=== PATIENT | female | born 1980 | race Caucasian/White ===

== ENCOUNTER 2024-09-13 15:51 | Emergency (ER) | payer OTHER, SELFPAY ==
--- NOTE | ~2024-09-13 | XR_ITS ---
CLINICAL HISTORY: constipation 1 view abdomen Comparison: None Findings: No pneumoperitoneum or pneumatosis. Normal bowel-gas pattern. Moderate fecal loading within the colon. No abnormal calcifications. No acute fractures. IMPRESSION: The bowel gas pattern is normal This document has been electronically signed by: Patrice Beckman MD on 09/13/2024 19:13:08
[2024-09-13 15:55] VITALS: BP 140/78; PULSE 64; O2SAT 97
[2024-09-13 16:07] VITALS: BMI 28.2
[2024-09-13 16:25] LABS: Appearance Urine Clear; Color Urine Yellow; Glucose Urine UA Negative (Negative); Leukocyte Esterase Urine Moderate (2+) (Negative); Nitrite Urine Negative (Negative); PH 7.5 (5.0-9.0); Specific Gravity - Urine 1.015 (1.005-1.025); UMIC TRIGGER UACC YES; UPreg QC Valid YES; Urine Blood Negative (Negative); Urine Ketones Trace mg/dL (Negative); Urine Pregnancy NEGATIVE (NEGATIVE); Urine Protein Negative (Neg-Trace)
[2024-09-13 16:30] LABS: Bacteria Urine None Seen (None Seen); Hyaline Casts Urine 0-2 /LPF (0-2); RBC Urine 0-2 /HPF (0-2); Squamous Epithelial Cell Urine 0-2 /HPF (0-2); UACC Culture Trigger YES
[2024-09-13 16:33] LABS: Amphetamine Screen Urine Not Detected (Not Detect); Barbiturates, Urine Not Detected (Not Detect); Benzodiazepines Screen Urine Not Detected (Not Detect); Buprenorphine Scr Not Detected (Not Detect); Cannabinoid Screen Urine Not Detected (Not Detect); Cocaine Screen Urine Not Detected (Not Detect); Fentanyl, urine Not Detected (Not Detect); Methadone Screen, Urine Not Detected (Not Detect); Opiate Screen Urine Not Detected (Not Detect); Oxycodone Screen Urine Not Detected (Not Detect); Phencyclidine Screen Urine Not Detected (Not Detect)
--- NOTE | 2024-09-13 17:43 | ED.GENADULT ---
HPI - General Adult General Chief complaint: Abdominal Pain Stated complaint: section 21 MV, banging head on wall, dizzy, abd pa Time Seen by Provider: 09/13/24 16:10 Source: patient Mode of arrival: EMS Limitations: no limitations History of Present Illness ED Provider: HPI narrative: Patient from [facility] psych for suicidal ideation been constipated for last 3 days taking lactulose took Mag citrate without much response was upset banged her head to the wall without significant injury sent here for evaluation no vomiting no significant abdominal pain Related Data Allergies Allergy/AdvReac Type Severity Reaction Status Date / Time No Known Allergies Allergy Verified 09/13/24 16:10 Review of Systems Review of Systems: Yes all other systems are reviewed and are negative [facility] Past Medical History Medical History Depression with suicidal ideation Social History Social History Use of substances other than those prescribed or required for medical reasons: No Advance Directives: No Advance Directives Information Provided: No Do you have a plan to hurt others: No Plan Physical Exam ED Vital Signs: BMI result Body Mass Index 28.2 Appearance: Alert. Oriented X3. No acute distress. Eyes: PERRLA, No Nystagmus HEENT: Pharynx normal. Oral Mucosa moist, atraumatic normocephalic Neck: Normal inspection. Neck supple. CVS: Normal heart rate and rhythm. Pulses normal. Respiratory: No respiratory distress. Equal air entry bilateral, no wheezing/rales/rhonchi Abdomen: Soft and nontender. Bowel sounds are present, no mass palpable, no CVA tenderness Skin: Skin warm and dry. Normal skin color. Normal skin turgor. Extremities: No lower extremity edema. No calf tenderness Neuro: Oriented X 3. No motor deficit. No sensory deficit.No cerebellar signs , cranial nerves II-XII intact Medications Administered Discontinued Medications Generic Name Dose Route Start Last Admin Trade Name Freq PRN Reason Stop Dose Admin Magnesium Hydroxide 30 ml 09/13/24 17:42 09/13/24 17:49 Milk Of Magnesia 30 Ml Oral.Susp PO 09/13/24 17:43 30 ml ONCE ONE Administration Medical Decision Making Medical Decision Making [facility] Narrative: Patient with mild constipation without any obstructive was given milk of magnesia in the ER advised to drink plenty of fluids and to continue lactulose Lab Data MDM Lab Attestation statement: I reviewed the patient's lab results. Labs: Lab Results 09/13/24 Range/Units 16:15 Urine Color Yellow Urine Appearance Clear Urine pH 7.5 (5.0-9.0) Ur Specific [place] 1.015 (1.005-1.025) Urine Protein Negative (Neg-Trace) mg/dL Urine Glucose (UA) Negative (Negative) mg/dL Urine Ketones Trace (Negative) mg/dL Urine Blood Negative (Negative) Urine Nitrite Negative (Negative) Ur Leukocyte Esterase Moderate (2+) H (Negative) Urine RBC 0-2 (0-2) /HPF Urine WBC 11-20 H (0-5) /HPF Ur Squamous Epith Cells 0-2 (0-2) /HPF Urine Bacteria None Seen (None Seen) Hyaline Casts 0-2 (0-2) /LPF Urine Test NEGATIVE (NEGATIVE) Urine Opiates Screen Not Detected (Not Detect) Ur Buprenorphine Scrn Not Detected (Not Detect) ng/mL Ur Oxycodone Screen Not Detected (Not Detect) ng/mL Urine Methadone Screen Not Detected (Not Detect) ng/mL Urine Fentanyl Screen Not Detected (Not Detect) Ur Barbiturates Screen Not Detected (Not Detect) Ur Phencyclidine Scrn Not Detected (Not Detect) Ur Amphetamines Screen Not Detected (Not Detect) U Benzodiazepines Scrn Not Detected (Not Detect) Urine Cocaine Screen Not Detected (Not Detect) U Marijuana (THC) Screen Not Detected (Not Detect) Independent Interpretation I performed an independent interpretation of an: Plain X-Ray Radiology Impression Discussion of test interpretation with radiology: I have reviewed the radiologist's reading. Radiologist Impression: [address] [address] XRay Report Signed Patient: Heather Wright MR#: [id number] : 1980 Acct:[id number] Age/Sex: 44 / F ADM Date: 09/13/24 Loc: HO.ED Attending Dr: Ordering Physician: Bal Johnson MD Date of Service: 09/13/24 Procedure(s): XR KUB Accession Number(s): [id number] cc: Physician,Unknown ; Bal Johnson MD~ CLINICAL HISTORY: constipation 1 view abdomen Comparison: None Findings: No pneumoperitoneum or pneumatosis. Normal bowel-gas pattern. Moderate fecal loading within the colon. No abnormal calcifications. No acute fractures. IMPRESSION: The bowel gas pattern is normal This document has been electronically signed by: Patrice Beckman MD on 09/13/2024 19:13:08 Discharge Plan Discharge Clinical Impression: Constipation Patient Disposition: Xfer Psychiatric [facility] Transfer Details: X-ray showed constipation without any blockage continue lactulose prescribed drink plenty of fluid Instructions: Constipation (ED) Additional Instructions: Drink plenty of fluids Continue to take your lactulose Print Language: Tristanian
[2024-09-13] MEDS: Milk of Magnesia 30 ML ORAL.SUSP PO (17:49)
--- OUTSIDE RECORDS SUMMARY | 2024-09-13 19:58 | XMS_ITS | Encounter Summary ---
Author Organization [facility] Address [address] [place] [address] Care Team Providers Care Plodder Operator Name Role Phone Florencia Em MD Primary Care Provider [phone] Florencia Em MD Primary Care Provider [phone] Encounter Details Date Type Department Care Team (Late Contact Info) Description 11/10/2017 Orders Only [place] [address] [place] [address] Florencia Em MD [address] [place] [address] Social History Tobacco Use Types Packs/Day Years Used Date Smoking Tobacco: Never Smokeless Tobacco: Never Alcohol Use Standard Drinks/Week Comments No 0 (1 standard drink = 0.6 oz pur e alcohol) Comments No Sex and Gender Information Value Date Recorded Sex Assigned at Not on file Legal Sex Female 3:59 AM EDT Gender Identity Not on file Sexual Orientation Not on file documented as of this encounter Progress Notes * Florencia Em MD - 11/18/2017 5:44 AM EDT Emails ent documented in this encounter Plan of Treatment Upcoming Encounters Date Type Department Care Team (Late Contact Info) Description 12/11/2024 10:00 AM EDT Office Visit [facility] [address] [place] [phone] Angeli Cuevas, SACHIN [address] [place] [address] Abdominal discomfort 06/26/2025 2:00 PM EST Radiology [facility]. Mammography [address] [place] [address] documented as of this encounter Procedures * Due to [place] [employer] law, this organization might not be sharing negative HIV tests. Procedure Name Priority Date/Time Associated Diagnosis Comments THINPREP TIS PAP AND HPV RNA, HR E6/E7, TMA Routine 11/10/2017 7:24 AM EDT Screening for malignant neoplasm of cervix documented in this encounter Results * Due to [place] [employer] law, this organization might not be sharing negative HIV tests. * THINPREP TIS PAP AND HPV RNA, HR E6/E7, TMA (11/10/2017 7:24 AM EDT) Clinical information None given [facility] Date last menstrual period NONE GIVEN [facility] Date of previous PAP smear NONE GIVEN [facility] Date of previous biopsy NONE GIVEN [facility] Specimen source (Cvx/Vag) Vagina, Cervix, Endocervix [facility] Statement of Adequacy (Cvx/Vag) Satisfactory for evaluation. Endocervical/dotson sformation zone component present. Partially obscuring inflammation Age and/or menstrual status not provided [facility] Cytology, Pap Smear Negative for intraepithelial lesion or malignancy. [facility] Cytology study comment (Cvx/Vag) This Pap test has been evaluated with computer assisted technology. [facility] Concrete Finisher Apprentice (Cvx/Vag) , CT(ASCP) CT screening location: [address] [address] [facility] Concrete Finisher Apprentice (Cvx/Vag) MAA, CT(ASCP) CT screening location: [address] [address] [facility] COMMENT SEE NOTE [facility] Comment: EXPLANATORY NOTE: The Pap is a screening test for cervical cancer. It is not a diagnostic test and is subject to false negative and false positive results. It is most reliable when a satisfactory sample, regularly obtained, is submitted with relevant clinical findings and history, and when the Pap result is evaluated along with historic and current clinical information. HPV MRNA E6/E7 Not Detected Not Detected [facility] Comment: This test was performed using the APTIMA HPV Assay ([employer] This assay detects E6/E7 viral messenger RNA (mRNA) from 14 high-risk HPV types (16,18,31,33,35,39,45,51,52,56,58,59,66,68). 11/10/2017 7:24 AM EDT 11/10/2017 8:55 PM EDT Narrative Resulting Agency Comment [id number] Florencia Em MD PATHOLOGY-INTERFACED Final Resul t [facility] [address] [place] [address] documented in this encounter Visit Diagnoses Diagnosis Screening for malignant neoplasm of cervix Screening for malignant neoplasm of the cervix documented in this encounter Additional Health Concerns Infection Onset Date Last Indicated Resolved Time COVID-19 Confirmed 04/26/2021 04/26/2021 2 8:12 PM EST COVID-19 Confirmed 08/13/2022 08/13/2022 documented as of this encounter Care Teams Plodder Operator Relationship Specialty Start Date End Date Florencia Em MD [address] [place] [address] PCP - General 03/04/07 05/11/21 Florencia Em MD [address] [place] [address] PCP - General Internal Medicine 05/27/21 documented as of this encounter
--- OUTSIDE RECORDS SUMMARY | 2024-09-13 19:58 | XMS_ITS | Encounter Summary ---
Author Organization [facility] Address [address] [place] [address] Care Team Providers Care Asbestos Coverer Name Role Phone Florencia Em MD Primary Care Provider [phone] Florencia Em MD Primary Care Provider [phone] Encounter Details Date Type Department Care Team (Late Contact Info) Description 07/21/2017 Orders Only [facility] METEOROLOGY INSTRUCTOR [address] [facility] [address] [place] [address] Lynda Lopez MD Social History Tobacco Use Types Packs/Day Years [...] as of this encounter Progress Notes * Rossana Zee RN - 07/26/2017 9:18 AM EST Tissue pathology Benign endometrial fragments with fragments suggestive of polyp(s). labs to provider for review documented in this encounter Plan of Treatment Upcoming Encounters Date Type Department Care Team ([facility] Contact Info) Description 12/11/2024 10:00 AM EDT Office Visit [facility] [address] [place] [phone] Angeli Cuevas NP [address] [place] [address] Abdominal discomfort 06/26/2025 2:00 PM EST Radiology [facility]. [facility] [address] [facility] [address] documented as of this encounter Procedures * Due to [facility] law, this organization might not be sharing negative HIV tests. Procedure Name Priority Date/Time Associated Diagnosis Comments CHLAMYDIA TRACHOMATIS/N. GONORRHOEAE (GC) RNA, TMA (APTIMA GENITAL SWAB) Routine 07/21/2017 4:02 PM EST Abnormal uterine bleeding (AUB) Irregular menstrual cycle Dysfunctional uterine bleeding THYROID STIMULATING HORMONE (TSH) WITH FREE T4 REFLEX, SERUM Routine 07/21/2017 4:02 PM EST Abnormal uterine bleeding (AUB) Irregular menstrual cycle Dysfunctional uterine bleeding TESTOSTERONE, FREE(DIALYSIS) AND TOTAL, MS Routine 07/21/2017 4:02 PM EST Abnormal uterine bleeding (AUB) Irregular menstrual cycle Dysfunctional uterine bleeding PROLACTIN Routine 07/21/2017 4:02 PM EST Abnormal uterine bleeding (AUB) Irregular menstrual cycle Dysfunctional uterine bleeding 17-HYDROXYPROGESTERO NE, LC/MS/MS Routine 07/21/2017 4:02 PM EST Abnormal uterine bleeding (AUB) Irregular menstrual cycle Dysfunctional uterine bleeding TISSUE PATHOLOGY Routine 07/21/2017 2:30 PM EST documented in this encounter Results * Due to [place] [employer] law, this organization might not be sharing negative HIV tests. * CHLAMYDIA TRACHOMATIS/N. GONORRHOEAE (GC) RNA, TMA (APTIMA GENITAL SWAB) (07/21/2017 4:02 PM EST) Chlamydia trachomatis rRNA NOT DETECTED NOT DETECTED [facility] Neisseria Gonorrhoeae rRNA NOT DETECTED NOT DETECTED [facility] COMMENT SEE NOTE [facility] Comment: This test was performed using the APTIMA COMBO2 Assay ([employer] The analytical performance characteristics of this assay, when used to test SurePath specimens have been determined by [facility]. 07/21/2017 4:02 PM EST 07/21/2017 10:27 PM EST Narrative Resulting Agency Comment [id number] Lynda Lopez MD LABORATORY Final Resu lt Performing Organization Address [facility] de Phone Number [facility] [address] [place] [address] * TESTOSTERONE, FREE AND TOTAL, LC/MS/MS (07/21/2017 4:02 PM EST) Pathologist [facility] Testosterone 25 2 - 45 ng/dL [facility] Comment: For more information on this test, go to http://education.Hab Housing/faq/ TotalTestosteroneLCMSMS This test was developed and its analytical performance characteristics have been determined by [place]. It has not been cleared or approved by the U.S. Food and Drug Administration. This assay has been validated pursuant to the CLIA regulations and is used for clinical purposes. Testosterone, Free 4.5 0.1 - 6.4 pg/mL [facility] Comment: This test was developed and its analytical performance characteristics have been determined by [employer] [place], [place]. It has not been cleared or approved by the U.S. Food and Drug Administration. This assay has been validated pursuant to the CLIA regulations and is used for clinical purposes. 07/21/2017 4:02 PM EST 07/21/2017 10:27 PM EST Narrative Resulting Agency Comment [id number] Lynda Lopez MD LABORATORY Final Resu lt Performing Organization Address [facility] [[email or web address]] Co de Phone Number [facility] [address] [place] [address] * 17-HYDROXYPROGESTERONE, LC/MS/MS (07/21/2017 4:02 PM EST) [facility] 17-Hydroxyproges terone 48 see note ng/dL [facility] Comment: Unable to flag abnormal result(s), please refer ?to reference range(s) below: Adult Female Reference Ranges ??for 17-Hydroxyprogesterone, LC/MS/MS: ?Follicular Phase: ?? 185 ng/dL or less ?Luteal Phase: ?? 285 ng/dL or less ?Postmenopausal: ?45 ng/dL or less ? : ? First Trimester: ?? 78 - 457 ng/dL ?Second Trimester: ?? 90 - 357 ng/dL ? Third Trimester: ??144 - 578 ng/dL This test was developed and its analytical performance characteristics have been determined by [employer] [place], [place]. It has not been cleared or approved by the U.S. Food and Drug Administration. This assay has been validated pursuant to the CLIA regulations and is used for clinical purposes. 07/21/2017 4:02 PM EST 07/21/2017 10:27 PM EST Narrative Resulting Agency Comment [id number] Lynda Lopez MD LABORATORY Final Resu lt Performing Organization Address [facility] de Phone Number [facility] [address] [place] [address] * PROLACTIN (07/21/2017 4:02 PM EST) Prolactin 11.6 ng/mL [facility] Comment: ?Reference Range Females ?Non- ?3.0-30.0 ? 10.0-209.0 ?Postmenopausal ?2.0-20.0 07/21/2017 4:02 PM EST 07/21/2017 10:27 PM EST Narrative Resulting Agency Comment [id number] Lynda Lopez MD LAB SAME DAY RESULT Final Result Performing Organization Address [facility] de Phone Number [facility] [address] [place] [address] * THYROID STIMULATING HORMONE (TSH) WITH FREE T4 REFLEX, SERUM (07/21/2017 4:02 PM EST) TSH 2.51 mIU/L [facility] Comment: ?Reference Range ?> or = 20 Years ??0.40-4.50 ? Ranges ?First trimester ?0.26-2.66 ?Second trimester ?? 0.55-2.73 ?Third trimester ?0.43-2.91 07/21/2017 4:02 PM EST 07/21/2017 10:27 PM EST Narrative Resulting Agency Comment [id number] Lynda Lopez MD LABORATORY Final Resu lt [facility] [address] [place] [address] * TISSUE PATHOLOGY (07/21/2017 2:30 PM EST) COLLECTION DATE 07/21/2017 2:30 PM [facility] SPECIMEN SOURCE . A . Endometrium (Biopsy) [facility] DIAGNOSIS . A . - Benign endometrial fragments with fragments suggestive of polyp(s). [facility] Pathologist Morris Moralez M.D., Ph.D., Board Certified in Anatomic Pathology (electronic signature) Consulting Pathologist [facility] Pathology [address] [place] [address] [facility] GROSS DESCRIPTION . A . SEE NOTE [facility] Comment: Container labeled with patient's name and/or patient's id Heather Wright. ??Specimen is received in formalin and consists of blood admixed with fragments of capps to red-brown soft tissue and mucus measuring 2.9 x 1.8 x 0.2 cm in aggregate. ?? Specimen is filtered and submitted in toto in cassette A1. BJ 07/22/2017 ??Gross exam(s) performed at: ??[facility] ??[address] [place] [phone] ??Program Paraprofessional: CHRISTOPH LOBATO MD 07/21/2017 2:30 PM EST 07/22/2017 3:22 AM EST Lynda Lopez MD PATHOLOGY-INTERFACED Final Result [facility] [address] [place] [address] documented in this encounter Visit Diagnoses Diagnosis Abnormal uterine bleeding (AUB) Irregular menstrual cycle Dysfunctional uterine bleeding Other disorder of menstruation and other abnormal bleeding from female genital tract documented in this encounter Additional Health Concerns Infection Onset Date Last Indicated Resolved Time COVID-19 Confirmed 04/26/2021 04/26/2021 8:12 PM EST COVID-19 Confirmed 08/13/2022 08/13/2022 documented as of this encounter Care Teams Asbestos Coverer Relationship Specialty Start Date End Date Florencia Em MD [address] [place] [address] PCP - General 03/04/07 05/11/21 Florencia Em MD [address] [place] [address] PCP - General Internal Medicine 05/27/21 documented as of this encounter
--- OUTSIDE RECORDS SUMMARY | 2024-09-13 19:58 | XMS_ITS | Encounter Summary ---
Author Organization [facility] Address [address] [place] [address] Care Team Providers Care Saddle Stitching Machine Operator Name Role Phone Florencia Em MD Primary Care Provider [phone] Florencia Em MD Primary Care Provider [phone] Encounter Details Date Type Department Care Team (Late st Contact Info) Description 11/15/2017 Orders Only [facility] HOTEL ASSOCIATE [address] [facility] [address] [place] [address] Savanna Bertrand MD Women's [facility] [address] [address] Social History Tobacco Use Types Packs/Day Years [...] on file documented as of this encounter Plan of Treatment Upcoming Encounters Date Type Department Care Team (Late st Contact Info) Description 12/11/2024 10:00 AM EDT Office Visit [facility] [address] [place] [phone] Angeli Cuevas NP [address] [place] [address] Abdominal discomfort 06/26/2025 2:00 PM EST Radiology [facility]ammography [address] [facility] [place] [address] documented as of this encounter Visit Diagnoses Diagnosis Irregular menses Irregular menstrual cycle documented in this encounter Additional Health Concerns Infection Onset Date Last Indicated Resolved Time COVID-19 Confirmed 04/26/2021 04/26/2021 8:12 PM EST COVID-19 Confirmed 08/13/2022 08/13/2022 documented as of this encounter Care Teams Saddle Stitching Machine Operator Relationship Specialty Start Date End Date Florencia Em MD [address] [place] [address] PCP - General 03/04/07 05/11/21 Florencia Em MD [address] [place] [address] PCP - General Internal Medicine 05/27/21 documented as of this encounter
--- OUTSIDE RECORDS SUMMARY | 2024-09-13 19:59 | XMS_ITS | Clinical Summary ---
Author Organization [facility] Address [address] [place] [address] Care Team Providers Care Director Of Outpatient Services Name Role Phone Florencia Em MD Primary Care Provider [phone] Allergies No known active allergies Medications * This document contains information received from the source organization and may not represent a complete record from that organization. acetaminophen (TYLENOL) 325 MG tablet 04/03/2024 Active traZODone (DESYREL) 50 MG tablet 04/03/2024 Active hydrOXYzine HCl (ATARAX) 25 MG tablet TAKE 1 TABLET BY MOUTH 4 TIMES A DAY DIRECTED 11/10/2023 Active Maxton Carbonate (ESKALITH) 450 MG CR tablet Take 450 mg by mouth every night. 04/03/2024 Active Pantoprazole Sodium (PROTONIX) 40 MG EC tablet Take 40 mg by mouth 1 (one) time each day. 04/05/2024 Active Dicyclomine HCl (BENTYL) 10 MG capsuleIndicati ons:Abdominal discomfort Take one capsule (10 mg total) by mouth 4 (four) times a day if needed (abdominal pain or cramps). 30 capsule 05/08/2024 08/16/19 26 Active FLUoxetine (PROzac) 40 MG capsule Take one capsule (40 mg total) by mouth 1 (one) time each day. 05/08/2024 Active Active Problems Problem Noted Date Diagnosed Date Thrombocytosis 09/18/2020 BMI 40.0-44.9, adult 11/09/2017 Mood disorder 11/09/2017 Mood disorder 11/09/2017 Polycystic ovary disease 11/09/2017 H/O abnormal cervical Papanicolaou smear 016 Overview (04/20/2016): 04/20/16 previous pap smear +ASCU, -HPV, current pap smear -cytology and -HPV. Return to routine screening Obesity 02/04/2015 FH: colon cancer 02/04/2015 Overview (07/03/2024): 04/14/16 sister dx late 's Colon 03/2017 recommend 2yr f/u Colon 04/2019 recommend 2yr f/u Colon 10/2021 recommend 2r f/u Colon 04/2024, per Dr. Munoz recommends repeat colon in 2 years MIXED ANXIETY AND DEPRESSIVE DISORDER 03/11/2007 Overview (01/11/2008): She will continue current medications and we will have her see psychiatrist regarding her concerns. Resolved Problems Problem Noted Date Diagnosed Date Resolved Date Obesity 03/11/2007 06/05/2008 Overview (01/11/2008): I strongly encouraged to watch her diet, exercise, and try to lose weight. She declines an appointment with the dietitian right now. Encounters Date Type Department Care Team Description 09/11/2024 Telephone [facility] [address] [place] [address] Florencia Em MD Care Coordination Communication ; Hospital F/U 09/07/2024 ER [facility] [address] [place] [address] [facility], Unknown Provider 09/06/2024 ER [facility] [address], [place] [id number] [place] [address], Unknown Provider 09/06/2024 Telephone [facility] [address] [place] [address] Mary Ryan MA Care Coordination Communication (ER FU) 09/06/2024 ER [facility] [address] [place] [address] Bhargav Aguilera [facility], Unknown Provider 09/04/2024 ER [facility] [address] [place] [address] [facility], Unknown Provider from Last 3 Months Immunizations Name Administration Dates Next Due COVID-19, mRNA (Moderna Pre Fall 2022) Monovalent, 100 mcg/0.5 ml or 50 mcg/0.25 ml dose 07/10/2021 COVID-19, mRNA (Pfizer Pre 2022) Monovalent, 30 mcg/0.3 ml 12/03/2020,11/12/2020 DTP 03/23/1986, 3,1981,08/29/18 82,1981 Hep B (adult) 04/10/1998,11/08/1997,10/08/1997 Influenza,injectable,quad,Prsrv Fr 07/31/2019, Influenza,seasonal,trivalent ,preser vative (FLUZONE MDV) 08/26/2009 MMR 09/09/1982 OPV 03/23/1986, 3,1981,09/26/18 82,1981 Td (adult), adsorbed 03/11/2007,02/10/1996 Tdap 11/09/2017 Family History Medical History Relation Name Comments Heart Disorder Father coronary donnie ry disease/sudden @ 53 Lipid/Cholesterol Abnormality Father high cholesterol Cancer (?Type) Maternal grandfather stoma ch cancer Cancer (?Type) Maternal grandmother ovari an cancer Diabetes Mother Iliana adult onset Heart Disorder Paternal grandfather FL @ 45 Hypertension Paternal grandmother Kidney Disorder Sister 2 polycystic o varian syndrome Cancer (?Type) Sister 3 colon cancer Cancer - Breast Neg Hx Relation Name Status Comments Father Maternal grandfather stomach cancer Maternal grandmother ovarian cancer Mother Iliana Alive Paternal grandfather history of [place] @ 45 Paternal grandmother Sister 1 (Age 38) Sister 2 Sister 3 Social History Tobacco Use Types Packs/Day Years Used Date Smoking Tobacco: Never Passive Smoke Exposure: Past Smokeless Tobacco: Never Tobacco Cessation:Counseling Given: No Alcohol Use Standard Drinks/Week Comments No 0 (1 standard drink = 0.6 oz pur e alcohol) PHQ-2 Answer Date Recorded PHQ-2 Score 6 01/12/2022 Intimate Partner Violence Answer Date R ecorded Fear of Current or Ex-Partner Not on file Emotionally Abused Not on file 02/25/2023 Physically Abused Not on file 02/25/2023 Sexually Abused Not on file 02/25/2023 Feel Safe at Home Not on file 02/25/2023 Comments No Sex and Gender Information Value Date Recorded Sex Assigned at Not on file Legal Sex Female 3:59 AM EDT Gender Identity Not on file Sexual Orientation Not on file Last Filed Vital Signs Vital Sign Reading Time Taken Comments Blood Pressure 119/73 05/08/2024 3:00 PM EDT Pulse 64 05/08/2024 3:00 PM EDT Temperature 36.7 ??C (98 ??F) 05/08/2024 3:00 PM EDT Respiratory Rate 18 05/27/2021 4:20 PM EST Oxygen Saturation 99% 05/27/2021 4:20 PM EST Inhaled Oxygen Concentration - - Weight 91.9 kg (202 lb 9.6 oz) 05/08/2024 3:00 P M EDT Height 170.2 cm (5' 7 ) 09/17/2020 1:20 PM EST Body Mass Index 31.73 09/17/2020 1:20 PM EST Plan of Treatment Upcoming Encounters Date Type Department Care Team (Late st Contact Info) Description 12/11/2024 10:00 AM EDT Office Visit [facility] [address] [place] [phone] Angeli Cuevas NP [address] [place] [address] Abdominal discomfort 06/26/2025 2:00 PM EST Radiology [facility]. Mammography [address] [place] [phone] Health Maintenance Due Date Last Done Comments Hepatitis C Screening 1980 Pap Smear 11/10/2018 11/10/2017, 03/20, 02/04/2015, Additional history exists Mammogram/Breast Imaging 02/21/2022 02/21/2021, 02/2015 COVID-19 Vaccine ( season) 2024 07/10/2021, 12/03/2020, 11/12/2020 Influenza (#1) 2024 07/31/2019, 03/20, 08/26/2009 Colonoscopy 05/18/2026 05/18/2024, 10/18, 04/18/2019, Additional history exists DTaP/Tdap/Td (7 - Td or Tdap) 11/10/2027 11/09/2017, 03/11/2007, 02/10/1996, Additional history exists Zoster (Shingrix) (1 of 2) 2031 Hep B Completed 04/10/1998, 10/18, 10/08/1997 Eye/Retina Exam Discontinued 02/27/2008, 09/25/1997 Physical Discontinued 07/31/2019, 10/18, 02/04/2015, Additional history exists EKG Discontinued 12/30/2023, 07/20, 08/08/2023, Additional history exists Chest Imaging Discontinued 03/02/2024, 07/19, 08/02/2023, Additional history exists LDL Cholesterol Discontinued 03/30/2024, 03/19, 03/08/2022, Additional history exists Upper Endoscopy Discontinued 05/18/2024, 11/07/2021 HPV Vaccine Aged Out No longer eligi ble based on patient's age to complete this topic Hep A Aged Out No longer eligi ble based on patient's age to complete this topic Hib Aged Out No longer eligi ble based on patient's age to complete this topic Meningococcal ACWY Aged Out No longer eligible based on patient's age to complete this topic Pneumococcal Aged Out No longer eligi ble based on patient's age to complete this topic Procedures * Due to [place] state law, this organization might not be sharing negative HIV tests. Procedure Name Priority Date/Time Associated Diagnosis Comments COVID-19, FLU A, FLU B \T\ RSV RNA PCR, SYMPTOMATIC ([facility] ONLY) Routine 09/07/2024 9:14 PM EST XR ABDOMEN 2 VWS 09/07/2024 7:59 PM EST LACTIC ACID, PLASMA Routine 09/07/2024 7 :41 PM EST LIPASE Routine 09/07/2024 4:33 PM EST BASIC METABOLIC PANEL Routine 09/07/2024 4:33 PM EST CBC AUTO DIFFERENTIAL Routine 09/07/2024 4:33 PM EST RAPID COVID-19 FOR SURVEILLANCE - [facility] ONLY Routine 09/07/2024 10:[address] ABDOMEN PELVIS W CONTRAST 09/06/2024 9:01 PM EST URINALYSIS W/REFLEX TO MICROSCOPIC & CULTURE Routine 09/06/2024 7:40 PM EST HCG, QUALITATIVE, SERUM Routine 09/06/2024 6:22 PM EST COMPREHENSIVE METABOLIC PANEL Routine 09/06/2024 6:22 PM EST LIPASE Routine 09/06/2024 6:22 PM EST CBC AUTO DIFFERENTIAL Routine 09/06/2024 6:22 PM EST COMPREHENSIVE METABOLIC PANEL Routine 09/04/2024 10:01 AM EST LIPASE Routine 09/04/2024 10:01 AM EST CBC AUTO DIFFERENTIAL Routine 09/04/2024 10:01 AM EST EGD (UPPER GI ENDOSCOPY) 05/18/2024 COLONOSCOPY 05/18/2024 LIPID PANEL W/REFLEX TO DIRECT LDL Routine 03/30/2024 7:59 AM EDT CXR 2 VIEW AP/PA AND LAT Routine 03/04/2022 2:35 PM EDT MAMMOGRAM SCREENING TOMOSYNTHESIS, BILATERAL Routine 02/21/2021 11:19 AM EDT Breast cancer screening by mammogram THINPREP TIS PAP AND HPV RNA, HR E6/E7, TMA Routine 11/10/2017 7:24 AM EDT Screening for malignant neoplasm of cervix EKG Routine 06/05/2008 1:27 PM EST from Last 3 Months or Most Recently Relevant to Health Maintenance Results * Due to [place] state law, this organization might not be sharing negative HIV tests. * COVID-19, FLU A, FLU B \T\ RSV RNA PCR, SYMPTOMATIC ([facility] ONLY) (09/07/2024 9:14 PM EST) SARS-COV-2 RNA Not Detected Not Detected [facility] Comment: A Not Detected (Negative) test result is indicative of the absence of SARS-CoV-2 RNA at the level of LoD (Limit of Detection). A negative result does not rule out the possibility of COVID-19 and should not be used as the sole basis for treatment or patient management decisions. If COVID-19 is still suspected, based on exposure history together with other clinical findings, re-testing should be considered. Influenza virus A RNA Not Detected Not Detected [facility] Comment: Negative results do not preclude infection and should not be used as the sole basis for diagnosis, treatment or other patient management decisions. Negative results must be combined with clinical observations, patient history, and/or epidemiological information. Influenza virus B RNA Not Detected Not Detected [facility] Comment: Negative results do not preclude infection and should not be used as the sole basis for diagnosis, treatment or other patient management decisions. Negative results must be combined with clinical observations, patient history, and/or epidemiological information. Respiratory syncytial virus RNA Not Detected Not Detected [facility] Comment: Negative results do not preclude infection and should not be used as the sole basis for diagnosis, treatment or other patient management decisions. Negative results must be combined with clinical observations, patient history, and/or epidemiological information. 09/07/2024 9:14 PM EST Narrative [facility] - 09/07/2024 10:10 PM EST This test was developed, validated and its performance characteristics determined by [facility]. This test has not been cleared or approved by the U.S. Food and Drug Administration (FDA). FDA Policy for Diagnostic Tests for Coronavirus Disease-2019 during the Public Health Emergency issued October 02, 2019, is followed. Unknown Provider [facility] LABORATORY Final Resu lt [facility] [employer] [address] [place] [id number] * XR ABDOMEN 2 VWS (09/07/2024 7:59 PM EST) Anatomical Region Laterality Modality Other 09/07/2024 7:59 PM EST Narrative 09/07/2024 7:59 PM EST COMPARISON: None ?? IMPRESSION: FINDINGS and IMPRESSION: No evidence of free air or bowel obstruction. ??Moderate stool within the ascending colon. ??No abnormal calcifications or opaque foreign bodies. ??The bones are intact. If this radiology report contains a blank impression section, it is an incomplete radiology report. ??Please contact the interpreting radiologist or applicable radiology division as soon as possible to obtain the completed interpretation. ? Workstation ID: [id number] 5' 7 190 Procedure Note [facility], [facility] Provider - 09/07/2024 COMPARISON: None IMPRESSION: FINDINGS and IMPRESSION: No evidence of free air or bowel obstruction. Moderate stool within theascending colon. No abnormal calcifications or opaque foreign bodies.The bones are intact. If this radiology report contains a blank impression section, it is anincomplete radiology report. Please contact the interpreting radiologistor applicable radiology division as soon as possible to obtain thecompleted interpretation. Workstation ID: [id number] 5' 7 190 us Unknown Provider [facility] Final Resu lt * LACTIC ACID, PLASMA (09/07/2024 7:41 PM EST) Lactate 1.5 0.5 - 1.9 mmol/L [facility] Comment: Sepsis Screening: Initial Lactate Level >2.0 mmol/L - Repeat Lactate Level within 3 hours. Initial Lactate Level >4.0 mmol/L - Repeat Lactate Level within 3 hours, Initiate Septic Shock Protocol. 09/07/2024 7:41 PM EST us Unknown Provider [facility] LABORATORY Final Resu lt [facility] [employer] [address] [place] [address] * CBC AUTO DIFFERENTIAL (09/07/2024 4:33 PM EST) Only the most recent of3 resultswithin the time period is included. WBC 6.4 3.8 - 10.8 10*3/uL [facility] RBC 4.40 3.80 - 5.10 10*6/uL [facility] Hemoglobin 12.5 11.7 - 15.5 g/dL [facility] Hematocrit 38.2 35.0 - 45.0 % [facility] MCV 86.8 80.0 - 100.0 fL [facility] MCH 28.4 27.0 - 33.0 pg [facility] MCHC 32.7 32.0 - 36.0 g/dL [facility] RDW 13.9 11.0 - 15.0 % [facility] PLT 373 140 - 400 10*3/uL [facility] Platelet mean volume 10.1 7.5 - 12.5 fL [facility] Neutrophils % 49.3 % [facility] Granulocytes.artem ture/100 leukocytes 0.2 0.0 - 0.9 % [facility] Lymphocytes % 40.2 % [facility] Monocytes % 7.2 % [facility] Eosinophils % 2.2 % [facility] Basophils % 0.9 % [facility] Neutrophils # 3.17 1.50 - 7.80 10*3/uL [facility] Immature Granulocytes # <0.03 <=0.03 10*3/uL [facility] Lymphocytes # 2.60 0.85 - 3.90 10*3/uL [facility] Monocytes # 0.50 0.20 - 0.95 10*3/uL [facility] Eosinophils # 0.10 0.02 - 0.50 10*3/uL [facility] Basophils # 0.10 0.00 - 0.20 10*3/uL [facility] Erythrocytes.nucl eated/100 leukocytes 0.0 /100 WBCs [facility] Erythrocytes.nucl eated <0.01 <0.01 10*3/uL [facility] 09/07/2024 4:33 PM EST us Unknown Provider [facility] LABORATORY Final Resu lt Performing Organization Address City/[facility]/ZIP Co de Phone Number [facility] [employer] [address] [place] [address] * LIPASE (09/07/2024 4:33 PM EST) Only the most recent of3 resultswithin the time period is included. Lipase 23 13 - 60 U/L [facility] 09/07/2024 4:33 PM EST us Unknown Provider [facility] LABORATORY Final Resu lt Performing Organization Address [facility] de Phone Number [facility] [employer] [address] [place] [phone] * (ABNORMAL) BASIC METABOLIC PANEL (09/07/2024 4:33 PM EST) Sodium 139 135 - 145 mmol/L [facility] Potassium 3.3(L) 3.5 - 5.3 mmol/L [facility] Chloride 102 98 - 107 mmol/L [facility] Carbon dioxide 24 22 - 32 mmol/L [facility] Urea Nitrogen Blood (BUN) 4(L) 7 - 23 mg/dL [facility] Creatinine 0.59 0.50 - 1.20 mg/dL [facility] Glucose 82 65 - 99 mg/dL [facility] Calcium 8.9 8.6 - 10.5 mg/dL [facility] Anion gap 13 5 - 15 [facility] EGFR >90 >=60 mL/min/1.7 3m2 [facility] Comment: The estimated glomerular filtration rate (eGFR) is calculated using a new formula developed by the NKF-ASN task force to eliminate race-based correction factors. The new formula uses serum/plasma creatinine, age, and gender to determine eGFR. A value below 60mls/min might indicate kidney disease and will be flagged. For additional information, see Carrie et al, Am J Kidney Dis. 2021;79(2):268-288, A Unifying Approach for GFR estimation: Recommendations of the NKF-ASN Task Force on Reassessing the Inclusion of Race in Diagnosing Kidney Disease . 09/07/2024 4:33 PM EST us Unknown Provider [facility] LABORATORY Final Resu lt Performing Organization Address [facility] Co de Phone Number [facility] [employer] [address] [place] [address] * RAPID COVID-19 FOR SURVEILLANCE - [facility] ONLY (09/07/2024 10:29 AM EST) SARS-COV-2 RNA Not Detected Not Detected [facility] Comment: A Not Detected (Negative) test result is indicative of the absence of SARS-CoV-2 RNA at the level of LoD (Limit of Detection). A negative result does not rule out the possibility of COVID-19 and should not be used as the sole basis for treatment or patient management decisions. If COVID-19 is still suspected, based on exposure history together with other clinical findings, re-testing should be considered. 09/07/2024 10:2 9 AM EST Narrative [facility] - 09/07/2024 11:38 AM EST This test was developed, validated and its performance characteristics determined by [facility]. This test has not been cleared or approved by the U.S. Food and Drug Administration (FDA). FDA Policy for Diagnostic Tests for Coronavirus Disease-2019 during the Public Health Emergency issued October 02, 2019, is followed. us Unknown Provider [facility] LABORATORY Final Resu lt Performing Organization Address [facility]/ZIP Co de Phone Number [facility] [employer] [address] [place] [address] * CT ABDOMEN PELVIS W CONTRAST (09/06/2024 9:01 PM EST) Anatomical Region Laterality Modality Other 09/06/2024 9:01 PM EST Narrative 09/06/2024 9:01 PM EST COMPARISON: 08/02/2023 ?? FINDINGS: LOWER THORAX: There is basilar atelectasis. HEPATOBILIARY: No focal hepatic lesions are identified. ??There is no biliary ductal dilatation. ??The gallbladder is unremarkable. SPLEEN: No splenomegaly or focal lesions are identified. PANCREAS: No focal masses or ductal dilatation. ADRENALS: No adrenal nodules. KIDNEYS/URETERS: No hydronephrosis, stones, or solid lesions. PELVIC ORGANS/BLADDER: Unremarkable. PERITONEUM / RETROPERITONEUM: No free air or fluid. LYMPH NODES: No lymphadenopathy. VESSELS: Unremarkable. GI TRACT: No distention or wall thickening. ??The appendix is normal. BONES AND SOFT TISSUES: Unremarkable. IMPRESSION: No acute abnormality in the abdomen and pelvis. If this radiology report contains a blank impression section, it is an incomplete radiology report. ??Please contact the interpreting radiologist or applicable radiology division as soon as possible to obtain the completed interpretation. ? Workstation ID: [id number] Up-to-date CT equipment and radiation dose reduction techniques were employed. CTDIvol: 24.5 mGy. DLP: 1131 mGy-cm. 5' 7 190 Procedure Note [facility], Unknown Provider - 09/06/2024 COMPARISON: 08/02/2023 FINDINGS: LOWER THORAX: There is basilar atelectasis. HEPATOBILIARY: No focal hepatic lesions are identified. There is nobiliary ductal dilatation. The gallbladder is unremarkable. SPLEEN: No splenomegaly or focal lesions are identified. PANCREAS: No focal masses or ductal dilatation. ADRENALS: No adrenal nodules. KIDNEYS/URETERS: No hydronephrosis, stones, or solid lesions. PELVIC ORGANS/BLADDER: Unremarkable. PERITONEUM / RETROPERITONEUM: No free air or fluid. LYMPH NODES: No lymphadenopathy. VESSELS: Unremarkable. GI TRACT: No distention or wall thickening. The appendix is normal. BONES AND SOFT TISSUES: Unremarkable. IMPRESSION: No acute abnormality in the abdomen and pelvis. If this radiology report contains a blank impression section, it is anincomplete radiology report. Please contact the interpreting radiologistor applicable radiology division as soon as possible to obtain thecompleted interpretation. Workstation ID: [id number] Up-to-date CT equipment and radiation dose reduction techniques wereemployed. CTDIvol: 24.5 mGy. DLP: 1131 mGy-cm. 5' 7 190 us Unknown Provider [facility] IMAGING-[facility] Final Resu lt * (ABNORMAL) URINALYSIS W/REFLEX TO MICROSCOPIC & CULTURE (09/06/2024 7:40 PM EST) Color (Urine) Anayeli(A) Colorless, Light Yellow, Yellow, Dark Yellow [facility] Clarity (Urine) Slightly Cloudy(A) Clear [facility] Specific gravity (Urine) 1.030 1.005 - 1.030 [facility] pH (Urine) 5.0 4.6 - 8.0 [facility] Protein (Urine) 3+(A) Negative [facility] Glucose (Urine) Negative Negative [facility] Ketones (Urine) 1+(A) Negative [facility] Bilirubin (Urine) Positive(A) Negative [facility] Hemoglobin (Urine) Negative Negative [facility] Nitrite (Urine) Negative Negative [facility] Urobilinogen (Urine) Positive(A) Normal [facility] Leukocyte esterase (Urine) Negative Negative [facility] WBC (Urine) 6(H) 0 - 2 /HPF [facility] RBC (Urine Sed) 1 0 - 2 /HPF [facility] Hyaline casts (Urine sed) >180(H) 0 - 2 /LPF [facility] Epithelial cells.squamous (Urine sed) 1 /HPF [facility] Bacteria (Urine) Rare(A) None /HPF /HPF [facility] Mucus (Urine sed) Many /LPF [facility] 09/06/2024 7:40 PM EST us Unknown Provider [facility] LABORATORY Final Resu lt [facility] [employer] [address] [place] [address] * HCG, QUALITATIVE, SERUM (09/06/2024 6:22 PM EST) Pathologist [facility] Choriogonadotropin Negative Negative [facility] Comment: hCG greater than or equal to 5.0 mlU/mL is considered positive. hCG may be negative in early . Suggest repeat testing in 2-4 days if clinically indicated. Human anti-mouse antibodies (HAMA) and other heterophilic antibodies if present can interfere with the assay. The result of this test should be interpreted with the patient's clinical presentation. 09/06/2024 6:22 PM EST us Unknown Provider [facility] LABORATORY Final Resu lt [facility] [employer] [address] [place] [address] * (ABNORMAL) COMPREHENSIVE METABOLIC PANEL (09/06/2024 6:22 PM EST) Only the most recent of2 resultswithin the time period is included. Sodium 138 135 - 145 mmol/L [facility] Potassium 4.0 3.5 - 5.3 mmol/L [facility] Comment:1+ hemolysis, result may be falsely increased Chloride 100 98 - 107 mmol/L [facility] Carbon dioxide 22 22 - 32 mmol/L [facility] Anion gap 16(H) 5 - 15 [facility] Glucose 99 65 - 99 mg/dL [facility] Creatinine 0.85 0.50 - 1.20 mg/dL [facility] Calcium 9.3 8.6 - 10.5 mg/dL [facility] Protein Total (Serum) 7.5 6.0 - 8.0 g/dL [facility] Albumin 3.8 3.5 - 5.2 g/dL [facility] Bilirubin Total 0.4 0.2 - 1.2 mg/dL [facility] Alkaline phosphatase 73 35 - 129 U/L [facility] AST (SGOT) 33 10 - 40 U/L [facility] Comment:1+ hemolysis, result may be falsely increased ALT (SGPT) 13 10 - 40 U/L [facility] Urea Nitrogen Blood (BUN) 4(L) 7 - 23 mg/dL [facility] EGFR 87 >=60 mL/min/1.7 3m2 [facility] Comment: The estimated glomerular filtration rate (eGFR) is calculated using a new formula developed by the NKF-ASN task force to eliminate race-based correction factors. The new formula uses serum/plasma creatinine, age, and gender to determine eGFR. A value below 60mls/min might indicate kidney disease and will be flagged. For additional information, see Carrie et al, Am J Kidney Dis. 2022 Feb;79(2):268-288, A Unifying Approach for GFR estimation: Recommendations of the NKF-ASN Task Force on Reassessing the Inclusion of Race in Diagnosing Kidney Disease . GLOBULIN, TOTAL 3.7 2.1 - 4.2 g/dL [facility] A/G RATIO 1.0(L) 1.5 - 3.0 [facility] 09/06/2024 6:22 PM EST us Unknown Provider [facility] LABORATORY Final Resu lt [facility] [employer] [address] [place] [address] * EGD (UPPER GI ENDOSCOPY) (05/18/2024) Yasir Munoz MD PROCEDURES Final Result * COLONOSCOPY (05/18/2024) Yasir Munoz MD PROCEDURES Final Result * (ABNORMAL) LIPID PANEL W/REFLEX TO DIRECT LDL (03/30/2024 7:59 AM EDT) Cholesterol 172 <=199 mg/dL [facility] Triglyceride 142 <=149 mg/dL [facility] HDL Cholesterol 39(L) 40 - 59 mg/dL [facility] Cholesterol Non-HDL 133 mg/dL [facility] Cholesterol.in LDL 105(H) <100 mg/dL [facility] VLDL Cholesterol 28.4 mg/dL [facility] CHOL/HDL Ratio 4.4 <5.0 [facility] 03/30/2024 7:59 AM EDT Narrative [facility] - 03/30/2024 11:57 AM EDT Adult Treatment Panel III Guidelines of NCEP 2001 ? ? Category: ? Total Cholesterol (mg/dL) ? ? ?Desirable ?<200 ?Borderline High ? 200-239 ? ? ?High ?>=240 ? ? Category: ? LDL Cholesterol (mg/dL) ? ? ?Optimal ?<100 ? ? ?Near Optimal/Above Optimal ?100-129 ? ? ?Borderline High ? 130-159 ? ? ?High ?160-189 ? ? ?Very High ? >=190 ? ? Category: ? HDL Cholesterol (mg/dL) ? ? ?Low ?<40 ? ? ?High ?>=60 NCEP's Expert Panel on Blood Cholesterol in Children and Adolescents ? ? Category: ? Total Cholesterol (mg/dL) ? ? ?Desirable ?<170 ? ? ?Borderline High ? 170-199 ? ? ?High ?>=200 ? ? Category: ? LDL Cholesterol (mg/dL) ? ? ?Desirable ?<110 ? ? ?Borderline High ? 110-129 ? ? ?High ?>=130 us Unknown Provider [facility] LABORATORY Final Resu lt [facility] [employer] [address] [place] [address] * CXR 2 VIEW AP/PA AND LAT (03/04/2022 2:35 PM EDT) RADIOLOGY REPORT [facility] Department of Radiology [address] [place], [address] Name: OC WRIGHT : 82 Date of Service: [facility]04/22 [facility] Number: [id number] Order Number: ??[id number] ?Location: [facility] Report Number: [id number] ?Service: REG ER/ Requesting Physician: Denny Cedeño PA-C Category: RADIOLOGY ??[facility] Exam: CHEST 2 VIEWS (DEPARTMENT) ?? Signs/Symptoms: Chest Pain Report Status: Signed Chest radiograph, 2 views. INDICATION: Chest pain COMPARISON: Chest radiograph, 07/06/2021 FINDINGS: The lungs are well inflated without focal consolidation, pleural effusion or pneumothorax. The cardiomediastinal silhouette is stable and unremarkable in size and contour. The pulmonary vasculature is within normal limits. No acute osseous abnormality. IMPRESSION: No acute cardiopulmonary process. Date/Time of Dictation: 03/04/221536 Grinder Set Up Operator Thread Tool (if applicable): Approved By Attending Radiologist: Jevon Lees DO 03/04/22 1537 [facility] Department of Radiology [address] [place] [address], [address] ? [phone] ? [facility] Anatomical Region Laterality Modality Other 03/04/2022 2:35 PM EDT Narrative 03/04/2022 3:37 PM EDT Reason for Study/History: Department of Radiology TEST(S) PROCESSED BY [facility] XRAY us Unknown Provider [facility] IMAGING-[facility] Final Resul t * MAMMOGRAM SCREENING TOMOSYNTHESIS, BILATERAL FC (02/21/2021 11:19 AM EDT) Anatomical Region Laterality Modality BREAST Bilateral Mammography Impressions 02/24/2021 8:06 AM EDT : No specific mammographic evidence of malignancy. RECOMMENDATION: ? - Routine Screening Mammogram at Age 41 for both breasts. BI-RADS: 1 Negative (overall) RESULTS COMMUNICATED TO PATIENT: In a letter Narrative 02/24/2021 8:06 AM EDT EXAMINATION: SCREENING MAMMOGRAM HISTORY: Routine screening mammogram. TECHNIQUE: Digital Bilateral, CAD ,tomosynthesis COMPARISON: Comparison is made to prior mammograms. BREAST COMPOSITION: ??The breasts are almost entirely fatty. FINDINGS:No suspicious dominant mass lesions, clustered microcalcifications, or areas of unexplained architectural distortion are seen in either breast(s). us Florencia Manav [facility] MAMMO ORDERABLES Final Resul t * THINPREP TIS PAP AND HPV RNA, [...] evaluated with computer assisted technology. [facility] Director Of Oncology (Cvx/Vag) SL, CT(ASCP) CT screening location: [address] [address] [facility] Director Of Oncology (Cvx/Vag) MAA, CT(ASCP) CT screening location: [address] [address] [facility] COMMENT SEE NOTE [facility] [...] was performed using the APTIMA HPV Assay ([employer].). This assay detects E6/E7 viral messenger RNA (mRNA) from 14 high-risk HPV types (16,18,31,33,35,39,45,51,52,56,58,59,66,68). 11/10/2017 7:24 AM EDT 11/10/2017 8:55 PM EDT Narrative Resulting Agency Comment [id number] Florencia Em MD PATHOLOGY-INTERFACED Final Resul t [facility] [address] [place] [address] from Last 3 Months or Most Recently Relevant to Health Maintenance Additional Health Concerns Infection Onset Date Last Indicated COVID-19 Confirmed 08/13/2022 08/13/2022 Insurance [facility] [place] [address] [facility] [place] [id number] * Guarantor: LEARY,OC Account Type Relation to Patient Date of Phone Billing Address [facility] [address] [place] [address] [employer] Care Teams Director Of Outpatient Services Relationship Specialty Start Date End Date Florencia Em MD [address] [place] [address] PCP - General Internal Medicine 05/27/21
--- OUTSIDE RECORDS SUMMARY | 2024-09-13 19:59 | XMS_ITS | Encounter Summary ---
Author Organization [facility] Address [address] [place] [address] Care Team Providers Care Subscription Crew Leader Name Role Phone Florencia Em MD Primary Care Provider [phone] Florencia Em MD Primary Care Provider [phone] Encounter Details Date Type Department Care Team (Late st Contact Info) Description 03/11/2007 Orders Only [facility] [address] [place] [phone] Florencia Em MD [address] [place], [place] [phone] Social History Tobacco Use Types Packs/Day Years Used Date Smoking Tobacco: Never Alcohol Use Standard Drinks/Week Comments [...] AM EDT Office Visit [facility] [address] [place] [phone] Angeli Cuevas NP [address] [place] [address] Abdominal discomfort 06/26/2025 2:00 PM EST Radiology [facility]. Mammography [address] [place] [phone] documented as of this encounter Procedures * Due to [place] [employer] law, this organization might not be sharing negative HIV tests. Procedure Name Priority Date/Time Associated Diagnosis Comments THIN PREP, HPV IF INDICATED Routine 03/11/2007 GC DNA PROBE (GEN-PROBE, GC) Routine 03/11/2007 ROUTINE GENERAL MEDICAL EXAMINATION AT A HEALTH CARE FACILITY SCREENING FOR MALIGNANT NEOPLASM OF THE CERVIX CHLAMYDIA DNA PROBE (GEN-PROBE, CHLAMYDIA) Routine 03/11/2007 ROUTINE GENERAL MEDICAL EXAMINATION AT A HEALTH CARE FACILITY SCREENING FOR MALIGNANT NEOPLASM OF THE CERVIX BRIANNA PREP Routine 03/11/2007 ROUTINE GENERAL MEDICAL EXAMINATION AT A HEALTH CARE FACILITY SCREENING FOR MALIGNANT NEOPLASM OF THE CERVIX documented in this encounter Results * Due to [place] [employer] law, this organization might not be sharing negative HIV tests. * THIN PREP, HPV IF INDICATED (03/11/2007) INTERPRETATION/RESU LT - PAP SEE TEXT [facility] (CLIA# [id number]) Comment: ? THINPREP PAP TEST ? SOURCES: ??CERVIX, ENDOCERVIX ?CLINICAL HISTORY: ??LMP: 01/16/2007 ? NORMAL EXAM STATEMENT OF ADEQUACY: ??SATISFACTORY, ? ENDOCERVICAL/TRANSFORMATION ZONE ? COMPONENT IS PRESENT ?RESULT: ??NEGATIVE FOR INTRAEPITHELIAL ? LESION OR MALIGNANCY ?HPV DNA TEST: ??BASED ON THE CYTOLOGY RESULT, ? REFLEX HIGH/INTERMEDIATE RISK HPV ? DNA PROBE TESTING IS NOT ? PERFORMED. FOLLOW-UP CLINICALLY ? INDICATED. ? RESULT DATE: ??03/15/2007 ?TECHNOLOGIST: ??CP GYNECOLOGICAL CYTOLOGY IS A SCREENING PROCEDURE SUBJECT TO BOTH FALSE NEGATIVE AND FALSE POSITIVE RESULTS. ??IT IS MOST RELIABLE WHEN A SATISFACTORY SAMPLE IS OBTAINED ON A REGULAR REPETITIVE BASIS. RESULTS MUST BE INTERPRETED IN THE CONTEXT OF HISTORIC AND CURRENT CLINICAL INFORMATION. 03/11/2007 03/11/2007 10: 50 PM EDT Florencia Em MD PATHOLOGY-INTERFACED Final Resul t Performing Organization Address [facility] de Phone Number [facility] (CLIA# [id number]) [address] [place] [address] * CHLAMYDIA DNA PROBE (GEN-PROBE, CHLAMYDIA) (03/11/2007) CHLAMYDIA TRACHOMATIS DNA SEE TEXT [facility] (CLIA# [id number]) Comment: SOURCE: ENDOCERVIX NEGATIVE 03/11/2007 03/11/2007 8:5 6 PM EDT Florencia Em MD LABORATORY Final Result Performing Organization Address [facility] de Phone Number [facility] (CLIA# [id number]) [address] [place] [address] * BRIANNA PREP (03/11/2007) FUNGUS (BRIANNA WET PREP) SEE TEXT [facility] (CLIA# [id number]) Comment: SOURCE: UNKNOWN NO FUNGAL ELEMENTS SEEN NO CLUE CELLS PRESENT 03/11/2007 03/11/2007 8:5 6 PM EDT Florencia Em MD LABORATORY Final Result Performing Organization Address City/[facility]/ZIP Co de Phone Number [facility] (CLIA# [id number]) [address] [place] [address] * GC DNA PROBE (GEN-PROBE, GC) (03/11/2007) GC DNA PROBE SEE TEXT [facility] (CLIA# [id number]) Comment: SOURCE: ENDOCERVIX NEGATIVE 03/11/2007 03/11/2007 8:5 6 PM EDT Florencia Em MD LABORATORY Final Result Performing Organization Address [facility] de Phone Number [facility] (CLIA# [id number]) [address] [place] [address] documented in this encounter Visit Diagnoses Diagnosis ROUTINE GENERAL MEDICAL EXAMINATION AT A HEALTH CARE FACILITY Routine general medical examination at a health care facility SCREENING FOR MALIGNANT NEOPLASM OF THE CERVIX Screening for malignant neoplasm of the cervix documented in this encounter Additional Health Concerns Infection Onset Date Last Indicated Resolved Time COVID-19 Confirmed 04/26/2021 04/26/2021 8:12 PM EST COVID-19 Confirmed 08/13/2022 08/13/2022 documented as of this encounter Care Teams Subscription Crew Leader Relationship Specialty Start Date End Date Florencia Em MD [address] [place] [address] PCP - General 03/04/07 05/11/21 Florencia Em MD [address] [place] [address] PCP - General Internal Medicine 05/27/21 documented as of this encounter
--- OUTSIDE RECORDS SUMMARY | 2024-09-13 19:59 | XMS_ITS | Encounter Summary ---
Author Organization [facility] Address [address] [place] [address] Care Team Providers Care Rn Licensed Practical Name Role Phone Florencia Em MD Primary Care Provider [phone] Encounter Details Date Type Department Care Team (Late st Contact Info) Description 09/07/[id number] [place] [address], Unknown Provider Social History Tobacco Use Types Packs/Day Years Used Date Smoking Tobacco: Never Passive Smoke Exposure: Past Smokeless Tobacco: Never Alcohol Use Standard Drinks/Week [...] on file documented as of this encounter ED Notes * [facility], Unknown Provider - 09/11/2024 1:05 AM EST ED Provider Notes by Supa Martinez MD at 09/07/2024 10:02 AM Author: Supa Martinez MD Service: Emergency Medicine Author Type: Physician Filed: 09/11/2024 1:05 AM Date of Service: 09/07/2024 10:02 AM Status: Signed Resource Protection Specialist: Supa Martinez MD (Physician) Related Notes: Original Note by Jody Marsh MD (Resident) filed at 09/08/2024 12:47 AM History HPI: Chief Complaint Patient presents with ??? Suicidal ??? Abdominal Pain 44-year-old lady with a past medical history of anxiety and depression and chronic abdominal pain presents today via EMS after a family member called police/EMS after patient was noted to be frustrated and banging her head against the wall she took a knife and motion towards her abdomen citing worsening abdominal pain Chart review reveals patient has presented with several occasions similar type presentation in facthas been placed on a section 12 due to concern regarding self-harm in the past and almost identicalpresentation in 2023. Upon discharge he was thought that patient's symptoms were likely partially related to PCOS and also possibly related to an element of somatoform pain also Patient reports she is passing flatus without any difficulty, patient reports that her last bowel motion was several days ago, no blood patient denies any recent vomiting. LMP 3 weeks ago patient reports she is not sexually active. No fevers chills or rigors. No significant alcohol use/abuse Patient History Past Medical History: Diagnosis Date ??? Anxiety ??? Depression ??? Somatic delusion (HCC) 03/13/2024 No past surgical history on file. No family history on file. Social History Tobacco Use ??? Smoking status: Never Passive exposure: Never ??? Smokeless tobacco: Never Substance Use Topics ??? Alcohol use: Never ??? Drug use: Never Sexuality and Gender Identity Sexuality Legal Information Legal first name: Heather Legal last name: Kyle Legal sex: Female Gender Identity Patient's sex assigned at : Female Organ Inventory Organs the patient currently has: Organs present at or expected at to develop: Organs surgically enhanced or constructed: Organs hormonally enhanced or developed: breasts cervix ovaries uterus vagina penis prostate testes Review of Systems REVIEW OF SYSTEMS: Physical Exam Physical Exam ED Triage Vitals [09/07/24 1027] Temp Heart Rate Resp BP SpO2 36.8 ??C (98.2 ??F) 99 16 120/83 100 % Temp Source Heart Rate Source Patient Position BP Location Set FiO2 (O2%) Oral Pulse Oximeter Sitting Left arm -- Physical Exam Cardiovascular: Rate and Rhythm: Normal rate and regular rhythm. Pulses: Normal pulses. Heart sounds: Normal heart sounds. Pulmonary: Effort: Pulmonary effort is normal. Breath sounds: Normal breath sounds and air entry. Abdominal: General: Abdomen is flat. Bowel sounds are normal. There is no distension. Palpations: Abdomen is soft. There is no shifting dullness, fluid wave, splenomegaly or mass. Tenderness: There is no abdominal tenderness. There is no right CVA tenderness, left CVA tenderness, guarding or rebound. Hernia: No hernia is present. Skin: General: Skin is warm. Capillary Refill: Capillary refill takes less than 2 seconds. Neurological: General: No focal deficit present. Mental Status: She is alert. Motor: No weakness. Medical Decision Making and ED Course Assessment and Plan: 44-year-old lady with a past medical history of anxiety and depression and chronic abdominal pain presents today via EMS after a family member called police/EMS after patient was noted to be frustrated and banging her head against the wall she took a knife and motion towards her abdomen citing worsening abdominal pain. Patient arrives on a section 12. Broad differential considered including mesenteric ischemia, ruptured ovarian cyst, pancreatitis, constipation/fecal impaction/SBO/LBO. Lactic acid within normal limits, mesenteric ischemia unlikely. No rebound tenderness on exam patient is not peritonitic as result I do not think this is a perforated viscus or fluid in the abdomen secondary to a ruptured cyst. CT scan from yesterday was reevaluated and no significant stool impaction or any pathology found noevidence of pyelonephritis. Patient is tolerating p.o. restarted home PPI I explained that we have not found any pathology to treat at this time we believe that her symptomsmay be secondary to some element of somatic pain the other consideration is that there may be pain secondary to endometriosis we recommend that when she is discharged to follow-up with [facility] to discuss this. Patient signed out to [facility] due to high risk for suicidality patient is aware home meds and diet ordered Amount and/or Complexity of Data Reviewed: Type of data reviewed: external radiology data reviewed Type of external notes reviewed: prior ED visit Details: Seen yesterday for similar-labs/imaging reviewed. Discussion with other providers: Care was discussed with the following providers: [facility]AL [facility] (to discuss med. workup and needfor psych eval). Labs Reviewed BASIC METABOLIC PANEL - Abnormal Result Value NA 139 K 3.3 (*) Cl 102 CO2 24 BUN 4 (*) Creatinine 0.59 Glucose 82 Calcium 8.9 Anion Gap 13 eGFR >90 RAPID COVID-19 RNA FOR SURVEILLANCE (ED ONLY) - Normal PCR, SARS CoV-2 RNA Not Detected Narrative: This test was developed, validated and its performance characteristics determined by [employer]. This test has not been cleared or approved by the U.S. Food and Drug Administration (FDA). FDA Policy for Diagnostic Tests for Coronavirus Disease-2019 during the [facility], is followed. LACTIC ACID, PLASMA - Normal Lactic Acid 1.5 LIPASE - Normal Lipase 23 RAPID COVID-19, FLU A, FLU B & RSV RNA PCR, SYMPTOMATIC (ED ONLY) - Normal PCR, SARS CoV-2 RNA Not Detected Flu A RNA PCR Not Detected Flu B RNA PCR Not Detected RSV RNA PCR Not Detected Narrative: This test was developed, validated and its performance characteristics determined by [employer]. This test has not been cleared or approved by the U.S. Food and Drug Administration (FDA). FDA Policy for Diagnostic Tests for Coronavirus Disease-2019 during the [facility], is followed. CBC AUTO DIFFERENTIAL WBC 6.4 RBC 4.40 Hemoglobin 12.5 Hematocrit 38.2 MCV 86.8 MCH 28.4 MCHC 32.7 RDW 13.9 Platelets 373 MPV 10.1 Neutrophil % 49.3 Immature Grans % 0.2 Lymphocyte % 40.2 Monocyte % 7.2 Eosinophil % 2.2 Basophil % 0.9 Neutrophil # 3.17 Immature Grans # <0.03 Lymphocyte # 2.60 Monocyte # 0.50 Eosinophil # 0.10 Basophil # 0.10 nRBC % 0.0 nRBC # <0.01 EXTRA TUBES Narrative: The following orders were created for panel order Extra Tubes. Procedure Abnormality Status --------- ------ Light Green Top[[id number]] Final result Please view results for these tests on the individual orders. LIGHT GREEN TOP Extra Tube Hold for add-ons. X-Ray Abdomen 2 Views Final Result FINDINGS and IMPRESSION: No evidence of free air or bowel obstruction. Moderate stool within the ascending colon. No abnormal calcifications or opaque foreign bodies. The bones are intact. If this radiology report contains a blank impression section, it is an incomplete radiology report.Please contact the interpreting radiologist or applicable radiology division as soon as possible toobtain the completed interpretation. Workstation ID: [id number] ED Course as of 09/07/241932 Orly Sep 07, 2024 1919 44F here with chronic abd pain. Patient states SI 2/2 pain. Under section 12. Patient denies f/c. Nausea though no vomiting. No diarrhea. [JF] ED Course User Index [JF] MD Heather Greenfield : 1980 CSN: [id number] Jody Marsh MD Resident 09/08/24 0047 44-year-old female presents to the ED with suicidal thoughts due to her chronic abdominal pain. Patient has had workups including CT other day. Labs checked here and overall unremarkable. No indication for repeat imaging. Patient has section 12. Discussed with [facility] after labs here are unrevealing. Will need outpatient follow-up of her chronic abdominal discomfort and pain. Attending to Resident/Fellow - I saw and evaluated the patient. I discussed the case with the resident(s)/fellow(s) and agree with the findings and plan as documented by the resident(s)/fellow(s). Coker elements, clarifications and/or exceptions are noted by me. Heather Wright : 1980 CSN: [id number] Supa Martinez MD 09/11/24 0105 documented in this encounter Plan of Treatment Upcoming Encounters Date Type Department Care Team (Late st Contact Info) Description 12/11/2024 10:00 AM EDT Office Visit [facility] [address] [place] [id number] Angeli Cuevas, SACHIN [address] [place] [address] Abdominal discomfort 06/26/2025 2:00 PM EST Radiology [facility] [address] [place] [address] documented as of this encounter Procedures * Due to [facility] law, this organization might not be sharing negative HIV tests. Procedure Name Priority Date/Time Associated Diagnosis Comments COVID-19, FLU A, FLU B \T\ RSV RNA PCR, SYMPTOMATIC ([facility] ONLY) Routine 09/07/2024 9:14 PM EST XR ABDOMEN 2 VWS 09/07/2024 7:59 PM EST LACTIC ACID, PLASMA Routine 09/07/2024 7 :41 PM EST CBC AUTO DIFFERENTIAL Routine 09/07/2024 4:33 PM EST LIPASE Routine 09/07/2024 4:33 PM EST BASIC METABOLIC PANEL Routine 09/07/2024 4:33 PM EST RAPID COVID-19 FOR SURVEILLANCE - [facility] ONLY Routine 09/07/2024 10:29 AM EST documented in this encounter Results * Due to [facility] law, this organization might not be sharing negative HIV tests. * COVID-19, FLU A, FLU B \T\ RSV RNA PCR, SYMPTOMATIC ([facility] ONLY) (09/07/2024 9:14 PM EST) SARS-COV-2 RNA Not Detected Not Detected [facility] Comment: A Not Detected (Negative) test result [...] virus A RNA Not Detected Not Detected [facility] Comment: Negative results do not preclude infection and should not be used as the sole basis for diagnosis, treatment or other patient management decisions. Negative results must be combined with clinical observations, patient history, and/or epidemiological information. Influenza virus B RNA Not Detected Not Detected [facility] Comment: Negative results do not preclude infection and should not be used as the sole basis for diagnosis, treatment or other patient management decisions. Negative results must be combined with clinical observations, patient history, and/or epidemiological information. Respiratory syncytial virus RNA Not Detected Not Detected [facility] Comment: Negative results do not preclude infection and should not be used as the sole basis for diagnosis, treatment or other patient management decisions. Negative results must be combined with clinical observations, patient history, and/or epidemiological information. 09/07/2024 9:14 PM EST Narrative [facility] - 09/07/2024 10:10 PM EST This test was developed, validated and its performance characteristics determined by [facility]. This test has not been cleared or approved by the U.S. Food and Drug Administration (FDA). FDA Policy for Diagnostic Tests for Coronavirus Disease-2019 during the Public Health Emergency issued October 02, 2019, is followed. us Unknown Provider [facility] LABORATORY Final Resu lt Performing Organization Address City/State/[facility] Co de Phone Number [facility] [employer] [address] [place] [phone] * XR ABDOMEN 2 VWS (09/07/2024 7:59 [...] obtain the completed interpretation. ? Workstation ID: [id number]' [id number] Procedure Note [facility], Unknown Provider - 09/07/2024 COMPARISON: None IMPRESSION: FINDINGS [...] possible to obtain thecompleted interpretation. Workstation ID: [id number]' [id number] us Unknown Provider [facility] IMAGING-[facility] Final Resu lt * LACTIC ACID, PLASMA (09/07/2024 7:41 PM EST) Lactate 1.5 0.5 - 1.9 mmol/L [facility] Comment: Sepsis Screening: Initial Lactate Level >2.0 mmol/L - Repeat Lactate Level within 3 hours. Initial Lactate Level >4.0 mmol/L - Repeat Lactate Level within 3 hours, Initiate Septic Shock Protocol. 09/07/2024 7:41 PM EST us Unknown Provider [facility] LABORATORY Final Resu lt Performing Organization Address [facility] Co de Phone Number [facility] [employer] [address] [place] [address] * LIPASE (09/07/2024 4:33 PM EST) Lipase 23 13 - 60 U/L [facility] 09/07/2024 4:33 PM EST us Unknown Provider [facility] LABORATORY Final Resu lt Performing Organization Address City/[facility]/ZIP Co de Phone Number [facility] [employer] [address] [place] [address] * (ABNORMAL) BASIC METABOLIC PANEL (09/07/2024 4:33 PM EST) Sodium 139 135 - 145 mmol/L [facility] Potassium 3.3(L) 3.5 - 5.3 mmol/L [facility] Chloride 102 98 - 107 mmol/L [facility] Carbon dioxide 24 22 - 32 mmol/L [facility] Urea Nitrogen Blood (BUN) 4(L) 7 - 23 mg/dL [facility] Creatinine 0.59 0.50 - 1.20 mg/dL [facility] Glucose 82 65 - 99 mg/dL [facility] Calcium 8.9 8.6 - 10.5 mg/dL [facility] Anion gap 13 5 - 15 [facility] EGFR >90 >=60 mL/min/1.7 3m2 [facility] Comment: The estimated glomerular filtration rate [...] 09/07/2024 4:33 PM EST us Unknown Provider [facility] LABORATORY Final Resu lt [facility] [employer] [address] [place] [address] * CBC AUTO DIFFERENTIAL (09/07/2024 4:33 PM EST) WBC 6.4 3.8 - 10.8 10*3/uL [facility] RBC 4.40 3.80 - 5.10 10*6/uL [facility] Hemoglobin 12.5 11.7 - 15.5 g/dL [facility] Hematocrit 38.2 35.0 - 45.0 % [facility] MCV 86.8 80.0 - 100.0 fL [facility] MCH 28.4 27.0 - 33.0 pg [facility] MCHC 32.7 32.0 - 36.0 g/dL [facility] RDW 13.9 11.0 - 15.0 % [facility] PLT 373 140 - 400 10*3/uL [facility] Platelet mean volume 10.1 7.5 - 12.5 fL [facility] Neutrophils % 49.3 % [facility] Granulocytes.artem ture/100 leukocytes 0.2 0.0 - 0.9 % [facility] Lymphocytes % 40.2 % [facility] Monocytes % 7.2 % [facility] Eosinophils % 2.2 % [facility] Basophils % 0.9 % [facility] Neutrophils # 3.17 1.50 - 7.80 10*3/uL [facility] Immature Granulocytes # <0.03 <=0.03 10*3/uL [facility] Lymphocytes # 2.60 0.85 - 3.90 10*3/uL [facility] Monocytes # 0.50 0.20 - 0.95 10*3/uL [facility] Eosinophils # 0.10 0.02 - 0.50 10*3/uL [facility] Basophils # 0.10 0.00 - 0.20 10*3/uL [facility] Erythrocytes.nucl eated/100 leukocytes 0.0 /100 WBCs [facility] Erythrocytes.nucl eated <0.01 <0.01 10*3/uL [facility] 09/07/2024 4:33 PM EST us Unknown Provider [facility] LABORATORY Final Resu lt [facility] [employer] [address] [place] [address] * RAPID COVID-19 FOR SURVEILLANCE - [facility] ONLY (09/07/2024 10:29 AM EST) SARS-COV-2 RNA Not Detected Not Detected [facility] Comment: A Not Detected (Negative) test [...] considered. 09/07/2024 10:2 9 AM EST Narrative [facility] - 09/07/2024 11:38 AM EST This test was developed, validated and its performance characteristics determined by [facility]. This test has not been cleared or approved by the U.S. Food and Drug Administration (FDA). FDA Policy for Diagnostic Tests for Coronavirus Disease-2019 during the Public Health Emergency issued October 02, 2019, is followed. us Unknown Provider [facility] LABORATORY Final Resu lt [facility] [employer] [facility] [address] [place] [address] documented in this encounter Visit Diagnoses Not on filedocumented in this encounter Additional Health Concerns Infection Onset Date Last Indicated Resolved Time COVID-19 Confirmed 08/13/2022 08/13/2022 documented as of this encounter Care Teams Rn Licensed Practical Relationship Specialty Start Date End Date Florencia Em MD [address] [place] [address] PCP - General Internal Medicine 05/27/21 documented as of this encounter
--- OUTSIDE RECORDS SUMMARY | 2024-09-13 19:59 | XMS_ITS | Encounter Summary ---
Author Organization [facility] Address [address] [place] [address] Care Team Providers Care Syrup Machine Laborer Name Role Phone Florencia Em MD Primary Care Provider [phone] Florenica Em MD Primary Care Provider Encounter Details Date Type Department Care Team (Late st Contact Info) Description 07/31/2019 Orders Only [facility] [address] [place] [address] Florencia Em MD [address] [place] [address] Social History Tobacco Use Types Packs/Day Years Used Date Smoking Tobacco: Never Smokeless Tobacco: Never Alcohol Use Standard Drinks/Week Comments No 0 (1 standard drink = 0.6 oz pur e alcohol) PHQ-2 Answer Date Recorded PHQ-2 Score 0 07/31/2019 Comments No Sex and Gender Information Value Date Recorded Sex Assigned at Not on file Legal Sex Female 3:59 AM EDT Gender Identity Not on file Sexual Orientation Not on file documented as of this encounter Progress Notes * Florencia Em MD - 07/31/2019 10:39 AM EST Message sent repeat CBC * Florencia Em MD - 07/31/2019 10:39 AM EST email sent andlet sent to come for labs documented in this encounter Plan of Treatment Upcoming Encounters Date Type Department Care Team (Late st Contact Info) Description 12/11/2024 10:00 AM EDT Office Visit [facility] [address] [place] [phone] Angeli Cuevas NP [address] [place] [address] Abdominal discomfort 06/26/2025 2:00 PM EST Radiology [facility] [facility] [address] [place] [address] documented as of this encounter Procedures * Due to [place] Measureful law, this organization might not be sharing negative HIV tests. Procedure Name Priority Date/Time Associated Diagnosis Comments CBC INCLUDES DIFFERENTIAL AND PLATELET COUNT Routine 07/31/2019 10:39 AM EST Need for vaccination VENIPUNCTURE Routine 07/31/2019 10:39 AM EST Need for vaccination HEMOGLOBIN A1C Routine 07/31/2019 10:39 AM EST Need for vaccination GLUCOSE (BLOOD) Routine 07/31/2019 10:39 AM EST BMI 40.0-44.9, adult (HCC) Routine adult health maintenance LIPID PANEL WITH REFLEX TO DIRECT LDL Routine 07/31/2019 10:39 AM EST BMI 40.0-44.9, adult (HCC) Routine adult health maintenance documented in this encounter Results * Due to [place] Measureful law, this organization might not be sharing negative HIV tests. * (ABNORMAL) HEMOGLOBIN A1C (02/07/2020 4:32 PM EDT) Hemoglobin A1C 5.8(H) <5.7 % of total Hgb [facility] Comment: For someone without known diabetes, a hemoglobin A1c value between 5.7% and 6.4% is consistent with prediabetes and should be confirmed with a follow-up test. For someone with known diabetes, a value <7% indicates that their diabetes is well controlled. A1c targets should be individualized based on duration of diabetes, age, comorbid conditions, and other considerations. This assay result is consistent with an increased risk of diabetes. Currently, no consensus exists regarding use of hemoglobin A1c for diagnosis of diabetes for children. Estimated Average Glucose 129 mg/dL (calc) [facility] 02/07/2020 4:32 PM EDT 02/08/2020 12:49 AM EDT Narrative Resulting Agency Comment [id number] Florencia Em MD LABORATORY Final Result [facility] [address] [place] [address] * (ABNORMAL) CBC INCLUDES DIFFERENTIAL AND PLATELET COUNT (02/07/2020 4:32 PM EDT) WBC 12.7(H) 3.8 - 10.8 Thousand/u L [facility] RBC 4.52 3.80 - 5.10 Million/uL [facility] Hemoglobin 12.8 11.7 - 15.5 g/dL [facility] Hematocrit 38.8 35.0 - 45.0 % [facility] MCV 85.8 80.0 - 100.0 fL [facility] MCH 28.3 27.0 - 33.0 pg [facility] MCHC 33.0 32.0 - 36.0 g/dL [facility] RDW 12.7 11.0 - 15.0 % [facility] PLT 418(H) 140 - 400 Thousand/u L [facility] MPV 10.6 7.5 - 12.5 fL [facility] Neutrophils # 8890(H) 1500 - 7800 cells/uL [facility] Lymphocytes # 2870 850 - 3900 cells/uL [facility] Monocytes # 699 200 - 950 cells/uL [facility] Eosinophils # 165 15 - 500 cells/uL [facility] Basophils # 76 0 - 200 cells/uL [facility] Neutrophils % 70 % [facility] Lymphocytes % 22.6 % [facility] Monocytes % 5.5 % [facility] Eosinophils % 1.3 % [facility] Basophils % 0.6 % [facility] 02/07/2020 4:32 PM EDT 02/08/2020 12:49 AM EDT Narrative Resulting Agency Comment [id number] Florencia Em MD LAB SAME DAY RESULT Final Result Performing Organization Address [facility] de Phone Number [facility] [address] [place] [address] * (ABNORMAL) LIPID PANEL WITH REFLEX TO DIRECT LDL (07/31/2019 10:39 AM EST) Cholesterol 150 <200 mg/dL [facility] HDL Cholesterol 37(L) >50 mg/dL [facility] Triglyceride 174(H) <150 mg/dL [facility] LDL Cholesterol 86 mg/dL (calc) [facility] Comment: Reference range: <100 Desirable range <100 mg/dL for primary prevention; ?? <70 mg/dL for patients with CHD or diabetic patients with > or = 2 CHD risk factors. LDL-C is now calculated using the Td calculation, which is a validated novel method providing better accuracy than the Friedewald equation in the estimation of LDL-C. Jason OLIVER et al. NATHALIA. 2013;310(19): 1567-8591 (http://education.Age of Learning/faq/YZA578) CHOL/HDL Ratio 4.1 <5.0 (calc) [facility] Cholesterol Non-HDL 113 <130 mg/dL (calc) [facility] Comment: For patients with diabetes plus 1 major ASCVD risk factor, treating to a non-HDL-C goal of <100 mg/dL (LDL-C of <70 mg/dL) is considered a therapeutic option. 07/31/2019 10:3 9 AM EST 07/31/2019 11:32 PM EST Narrative Resulting Agency Comment [id number] Florencia Em MD LABORATORY Final Result Performing Organization Address [facility] Co de Phone Number [facility] [address] [place] [address] * GLUCOSE (BLOOD) (07/31/2019 10:39 AM EST) Glucose 96 65 - 99 mg/dL [facility] Comment:Fasting reference in terval 07/31/2019 10:3 9 AM EST 07/31/2019 11:32 PM EST Narrative Resulting Agency Comment [id number] Florencia Em MD LAB SAME DAY RESULT Final Result Performing Organization Address City/[facility]/ZIP Co de Phone Number [facility] [address] [place] [address] * (ABNORMAL) CBC INCLUDES DIFFERENTIAL AND PLATELET COUNT (07/31/2019 10:39 AM EST) WBC 7.6 3.8 - 10.8 Thousand/u L [facility] RBC 4.16 3.80 - 5.10 Million/uL [facility] Hemoglobin 11.7 11.7 - 15.5 g/dL [facility] Hematocrit 35.9 35.0 - 45.0 % [facility] MCV 86.3 80.0 - 100.0 fL [facility] MCH 28.1 27.0 - 33.0 pg [facility] MCHC 32.6 32.0 - 36.0 g/dL [facility] RDW 12.6 11.0 - 15.0 % [facility] PLT 450(H) 140 - 400 Thousand/u L [facility] MPV 10.2 7.5 - 12.5 fL [facility] Neutrophils # 4013 1500 - 7800 cells/uL [facility] Lymphocytes # 2721 850 - 3900 cells/uL [facility] Monocytes # 494 200 - 950 cells/uL [facility] Eosinophils # 289 15 - 500 cells/uL [facility] Basophils # 84 0 - 200 cells/uL [facility] Neutrophils % 52.8 % [facility] Lymphocytes % 35.8 % [facility] Monocytes % 6.5 % [facility] Eosinophils % 3.8 % [facility] Basophils % 1.1 % [facility] 07/31/2019 10:3 9 AM EST 07/31/2019 11:32 PM EST Narrative Resulting Agency Comment [id number] Florencia Em MD LAB SAME DAY RESULT Final Result Performing Organization Address City/[facility] Co de Phone Number [facility] [address] [place] [address] * (ABNORMAL) HEMOGLOBIN A1C (07/31/2019 10:39 AM EST) Hemoglobin A1C 5.9(H) <5.7 % of total Hgb [facility] Comment: For someone without known diabetes, a hemoglobin A1c value between 5.7% and 6.4% is consistent with prediabetes and should be confirmed with a follow-up test. For someone with known diabetes, a value <7% indicates that their diabetes is well controlled. A1c targets should be individualized based on duration of diabetes, age, comorbid conditions, and other considerations. This assay result is consistent with an increased risk of diabetes. Currently, no consensus exists regarding use of hemoglobin A1c for diagnosis of diabetes for children. Estimated Average Glucose 133 mg/dL (calc) [facility] 07/31/2019 10:3 9 AM EST 07/31/2019 11:32 PM EST Narrative Resulting Agency Comment [id number] Florencia Em MD LABORATORY Final Result Performing Organization Address City/[facility] Co de Phone Number [facility] [address] [place] [address] * TSH, 3RD GENERATION (07/31/2019 10:39 AM EST) TSH 1.88 mIU/L [facility] Comment: ?Reference Range ?> or = 20 Years ??0.40-4.50 ? Ranges ?First trimester ?0.26-2.66 ?Second trimester ?? 0.55-2.73 ?Third trimester ?0.43-2.91 07/31/2019 10:3 9 AM EST 07/31/2019 11:32 PM EST Narrative Resulting Agency Comment [id number] Florencia Em MD LABORATORY Final Result Performing Organization Address City/[facility]/ZIP Co de Phone Number [facility] [address] [place] [address] documented in this encounter Visit Diagnoses Diagnosis Need for vaccination Need for prophylactic vaccination and inoculation against unspecified single disease BMI 40.0-44.9, adult (HCC) Body Mass Index 40.0-44.9, adult Routine adult health maintenance Routine general medical examination at a health care facility Screening for condition Screening for unspecified condition documented in this encounter Additional Health Concerns Infection Onset Date Last Indicated Resolved Time COVID-19 Confirmed 04/26/2021 04/26/2021 2 8:12 PM EST COVID-19 Confirmed 08/13/2022 08/13/2022 documented as of this encounter Care Teams Syrup Machine Laborer Relationship Specialty Start Date End Date Florencia Em MD [address] [place] [address] PCP - General 03/04/07 05/11/21 Florencia Em MD [address] [place] [address] PCP - General Internal Medicine 05/27/21 documented as of this encounter
--- OUTSIDE RECORDS SUMMARY | 2024-09-13 19:59 | XMS_ITS | Encounter Summary ---
Author Organization [facility] Address [address] [place] [address] Care Team Providers Care Jewelry Manager Name Role Phone Florencia Em MD Primary Care Provider [phone] Encounter Details Date Type Department Care Team (Late st Contact Info) Description 09/06/2024 ER [facility] [address] [place] [address] Bhargav Aguilera [address] [address] [facility], Unknown Provider Social History Tobacco Use Types [...] Description 12/11/2024 10:00 AM EDT Office Visit [facility] [address] [place] [phone] Angeli Cuevas, SACHIN [address] [place] [address] Abdominal discomfort 06/26/2025 2:00 PM EST Radiology [address] [facility] [facility] [address] [facility] [place] [address] documented as of this encounter Procedures * Due to [place] Inhibitex law, this organization might not be sharing negative HIV tests. Procedure Name Priority Date/Time Associated Diagnosis Comments CT ABDOMEN PELVIS W CONTRAST 09/06/2024 9:01 PM EST URINALYSIS W/REFLEX TO MICROSCOPIC & CULTURE Routine 09/06/2024 7:40 PM EST CBC AUTO DIFFERENTIAL Routine 09/06/2024 6:22 PM EST HCG, QUALITATIVE, SERUM Routine 09/06/2024 6:22 PM EST LIPASE Routine 09/06/2024 6:22 PM EST COMPREHENSIVE METABOLIC PANEL Routine 09/06/2024 6:22 PM EST documented in this encounter Results * Due to [place] Inhibitex law, this organization might not be sharing negative HIV tests. * CT ABDOMEN PELVIS W CONTRAST (09/06/2024 [...] obtain the completed interpretation. ? Workstation ID: [id number] Up-to-date CT equipment and radiation dose reduction techniques were employed. CTDIvol: 24.5 mGy. DLP: 1131 mGy-cm. 5' 7 190 Procedure Note [facility], Unknown Provider - 09/06/2024 COMPARISON: 08/02/2023 FINDINGS: [...] possible to obtain thecompleted interpretation. Workstation ID: [id number] Up-to-date CT equipment and radiation dose reduction techniques wereemployed. CTDIvol: 24.5 mGy. DLP: 1131 mGy-cm. 5' 7 190 us Unknown Provider [facility] Final Resu lt * (ABNORMAL) URINALYSIS W/REFLEX TO MICROSCOPIC & CULTURE (09/06/2024 7:40 PM EST) Color (Urine) Anayeli(A) Colorless, Light Yellow, Yellow, Dark Yellow [facility] Clarity (Urine) Slightly Cloudy(A) Clear [facility] Specific gravity (Urine) 1.030 1.005 - 1.030 [facility] pH (Urine) 5.0 4.6 - 8.0 [facility] Protein (Urine) 3+(A) Negative [facility] Glucose (Urine) Negative Negative [facility] Ketones (Urine) 1+(A) Negative [facility] Bilirubin (Urine) Positive(A) Negative [facility] Hemoglobin (Urine) Negative Negative [facility] Nitrite (Urine) Negative Negative [facility] Urobilinogen (Urine) Positive(A) Normal [facility] Leukocyte esterase (Urine) Negative Negative [facility] WBC (Urine) 6(H) 0 - 2 /HPF [facility] RBC (Urine Sed) 1 0 - 2 /HPF [facility] Hyaline casts (Urine sed) >180(H) 0 - 2 /LPF [facility] Epithelial cells.squamous (Urine sed) 1 /HPF [facility] Bacteria (Urine) Rare(A) None /HPF /HPF [facility] Mucus (Urine sed) Many /LPF [facility] 09/06/2024 7:40 PM EST us Unknown Provider [facility] LABORATORY Final Resu lt Performing Organization Address [facility] Co de Phone Number [facility] [employer] [address] [place] [address] * HCG, QUALITATIVE, SERUM (09/06/2024 6:22 PM EST) Choriogonadotropin Negative Negative [facility] Comment: hCG greater than or equal to 5.0 mlU/mL is considered positive. hCG may be negative in early . Suggest repeat testing in 2-4 days if clinically indicated. Human anti-mouse antibodies (HAMA) and other heterophilic antibodies if present can interfere with the assay. The result of this test should be interpreted with the patient's clinical presentation. 09/06/2024 6:22 PM EST us Unknown Provider [facility] LABORATORY Final Resu lt Performing Organization Address [facility]/ZIP Co de Phone Number [facility] [employer] [address] [address] * (ABNORMAL) COMPREHENSIVE METABOLIC PANEL (09/06/2024 6:22 PM EST) Sodium 138 135 - 145 mmol/L [facility] Potassium 4.0 3.5 - 5.3 mmol/L [facility] Comment:1+ hemolysis, result may be falsely increased Chloride 100 98 - 107 mmol/L [facility] Carbon dioxide 22 22 - 32 mmol/L [facility] Anion gap 16(H) 5 - 15 [facility] Glucose 99 65 - 99 mg/dL [facility] Creatinine 0.85 0.50 - 1.20 mg/dL [facility] Calcium 9.3 8.6 - 10.5 mg/dL [facility] Protein Total (Serum) 7.5 6.0 - 8.0 g/dL [facility] Albumin 3.8 3.5 - 5.2 g/dL [facility] Bilirubin Total 0.4 0.2 - 1.2 mg/dL [facility] Alkaline phosphatase 73 35 - 129 U/L [facility] AST (SGOT) 33 10 - 40 U/L [facility] Comment:1+ hemolysis, result may be falsely increased ALT (SGPT) 13 10 - 40 U/L [facility] Urea Nitrogen Blood (BUN) 4(L) 7 - 23 mg/dL [facility] EGFR 87 >=60 mL/min/1.7 3m2 [facility] Comment: The estimated glomerular filtration rate (eGFR) is calculated using a new formula developed by the NKF-ASN task force to eliminate race-based correction factors. The new formula uses serum/plasma creatinine, age, and gender to determine eGFR. A value below 60mls/min might indicate kidney disease and will be flagged. For additional information, see Butler et al, Am J Kidney Dis. 2021;79(2):268-288, A Unifying Approach for GFR estimation: Recommendations of the NKF-ASN Task Force on Reassessing the Inclusion of Race in Diagnosing Kidney Disease . GLOBULIN, TOTAL 3.7 2.1 - 4.2 g/dL [facility] A/G RATIO 1.0(L) 1.5 - 3.0 [facility] 09/06/2024 6:22 PM EST us Unknown Provider [facility] LABORATORY Final Resu lt [facility] [employer] [address] [place] [address] * LIPASE (09/06/2024 6:22 PM EST) Pathologist [facility] Lipase 20 13 - 60 U/L [facility] 09/06/2024 6:22 PM EST us Unknown Provider [facility] LABORATORY Final Resu lt [facility] [employer] [address] [place] [address] * CBC AUTO DIFFERENTIAL (09/06/2024 6:22 PM EST) WBC 7.1 3.8 - 10.8 10*3/uL [facility] RBC 4.50 3.80 - 5.10 10*6/uL [facility] Hemoglobin 12.8 11.7 - 15.5 g/dL [facility] Hematocrit 38.8 35.0 - 45.0 % [facility] MCV 86.2 80.0 - 100.0 fL [facility] MCH 28.4 27.0 - 33.0 pg [facility] MCHC 33.0 32.0 - 36.0 g/dL [facility] RDW 14.0 11.0 - 15.0 % [facility] PLT 387 140 - 400 10*3/uL [facility] Platelet mean volume 10.0 7.5 - 12.5 fL [facility] Neutrophils % 58.7 % [facility] Granulocytes.artem ture/100 leukocytes 0.3 0.0 - 0.9 % [facility] Lymphocytes % 31.5 % [facility] Monocytes % 7.8 % [facility] Eosinophils % 1.0 % [facility] Basophils % 0.7 % [facility] Neutrophils # 4.14 1.50 - 7.80 10*3/uL [facility] Immature Granulocytes # <0.03 <=0.03 10*3/uL [facility] Lymphocytes # 2.20 0.85 - 3.90 10*3/uL [facility] Monocytes # 0.60 0.20 - 0.95 10*3/uL [facility] Eosinophils # 0.10 0.02 - 0.50 10*3/uL [facility] Basophils # 0.10 0.00 - 0.20 10*3/uL [facility] Erythrocytes.nucl eated/100 leukocytes 0.0 /100 WBCs [facility] Erythrocytes.nucl eated <0.01 <0.01 10*3/uL [facility] 09/06/2024 6:22 PM EST us Unknown Provider [facility] LABORATORY Final Resu lt Performing Organization Address City/State/[facility] Co de Phone Number [facility] [employer] [address] [place] [address] documented in this encounter Visit Diagnoses Not on filedocumented in this encounter Additional Health Concerns Infection Onset Date Last Indicated Resolved Time COVID-19 Confirmed 08/13/2022 08/13/2022 documented as of this encounter Care Teams Jewelry Manager Relationship Specialty Start Date End Date Florencia Em MD [address] [place] [address] PCP - General Internal Medicine 05/27/21 documented as of this encounter
--- OUTSIDE RECORDS SUMMARY | 2024-09-13 19:59 | XMS_ITS | Encounter Summary ---
Author Organization [facility] Address [address] [place] [address] Care Team Providers Care Trolley Cleaner Name Role Phone Florencia Em MD Primary Care Provider [phone] Reason for Visit * Reason Comments Care Coordination Communication ER FU Encounter Details Date Type Department Care Team (Late st Contact Info) Description 09/06/2024 Telephone [facility] [address] [place] [phone] Mary Ryan MA [address] [place] [address] Care Coordination Communication (ER FU) Social History Tobacco Use Types Packs/Day Years [...] on file documented as of this encounter Miscellaneous Notes * Telephone Encounter - Mary Ryan MA - 09/12/2024 8:11 AM EST Patient is currently inpatient at facility. TCC will follow up upon DC from hospital. * Telephone Encounter - Mary Ryan MA - 09/07/2024 1:56 PM EST [facility] received notification patient DC from [facility] 09-06-24. Patient is back at [facility] as of today. TCC will follow up upon DC. * Telephone Encounter - Mary Ryan MA - 09/06/2024 1:36 PM EST [facility] received notification patient DC from [facility] 09-04-24. Patient is back at [facility] as of today. TCC will follow up upon DC. documented in this encounter Plan of Treatment Upcoming Encounters Date Type Department Care Team (Late st Contact Info) Description 12/11/2024 10:00 AM EDT Office Visit [facility] [address] [place] [phone] Angeli Cuevas NP [address] [place] [address] Abdominal discomfort 06/26/2025 2:00 PM EST Radiology [address] [facility] Mammography [address] [place] [phone] documented as of this encounter Visit Diagnoses Not on filedocumented in this encounter Additional Health Concerns Infection Onset Date Last Indicated Resolved Time COVID-19 Confirmed 08/13/2022 08/13/2022 documented as of this encounter Care Teams Trolley Cleaner Relationship Specialty Start Date End Date Florencia Em MD [address] [place] [address] PCP - General Internal Medicine 05/27/21 documented as of this encounter
--- OUTSIDE RECORDS SUMMARY | 2024-09-13 19:59 | XMS_ITS | Encounter Summary ---
Author Organization [facility] Address [address] [place] [address] Care Team Providers Care Continuity Editor Name Role Phone Florencia Em MD Primary Care Provider [phone] Florencia Em MD Primary Care Provider [phone] Encounter Details Date Type Department Care Team (Late st Contact Info) Description 03/10/2007 Orders Only [facility] [address] [place] [address] Florencia Em MD [address] [place], [place] [phone] Social History Tobacco Use Types Packs/Day Years [...] AM EDT Office Visit [facility] [address] [place] [phone] Angeli Cuevas NP [address] [place] [address] Abdominal discomfort 06/26/2025 2:00 PM EST Radiology [facility]. Mammography [address] [place] [phone] documented as of this encounter Procedures * Due to [place] state law, this organization might not be sharing negative HIV tests. Procedure Name Priority Date/Time Associated Diagnosis Comments BASIC METABOLIC PANEL Routine 03/10/2007 ROUTINE GENERAL MEDICAL EXAMINATION AT A HEALTH CARE FACILITY CBC 5 PART DIFF Routine 03/10/2007 ROUTINE GENERAL MEDICAL EXAMINATION AT A HEALTH CARE FACILITY HEPATIC FUNCTION PANEL Routine 03/10/2007 ROUTINE GENERAL MEDICAL EXAMINATION AT A [facility] CARE FACILITY CARDIAC RISK/LIPID PROFILE I Routine 03/10/2007 ROUTINE GENERAL MEDICAL EXAMINATION AT A [facility] FACILITY documented in this encounter Results * Due to [place] [employer] law, this organization might not be sharing negative HIV tests. * HEPATIC FUNCTION PANEL (03/10/2007) Total Protein 7.6 6.2 - 8.3 G/DL [facility] (CLIA# [id number]) ALBUMIN 4.3 3.7 - 5.1 G/DL [facility] (CLIA# [id number]) GLOBULIN 3.3 2.2 - 3.9 G/DL [facility] (CLIA# [id number]) ALBUMIN/GLOBULIN RATIO 1.3 1.0 - 2.1 [facility] (CLIA# [id number]) BILIRUBIN TOTAL 0.4 0.2 - 1.2 MG/DL [facility] (CLIA# [id number]) BILIRUBIN DIRECT 0.1 0 - 0.2 MG/DL [facility] (CLIA# [id number]) ALKALINE PHOSPHATASE 78 33 - 115 U/L [facility] (CLIA# [id number]) AST (SGOT) 19 10 - 30 U/L [facility] (CLIA# [id number]) ALT (SGPT) 14 6 - 40 U/L [facility] (CLIA# [id number]) 03/10/2007 03/10/2007 3:1 8 PM EDT us Florencia Em MD LABORATORY Final Result Performing Organization Address City/[facility]/ZIP Co de Phone Number [facility] (CLIA# [id number]) [address] [place] [address] * (ABNORMAL) CARDIAC RISK/LIPID PROFILE I (03/10/2007) CHOLESTEROL, TOTAL 145 125 - 200 MG/DL [facility] (CLIA# [id number]) TRIGLYCERIDES 79 30 - 149 MG/DL [facility] (CLIA# [id number]) HDL-CHOLESTEROL 36(L) 40 - 77 MG/DL [facility] (CLIA# [id number]) LDL-CHOLESTEROL 93 62 - 130 MG/DL [facility] (CLIA# [id number]) Comment: RISK CATEGORY: ??LDL-CHOLESTEROL GOAL CHD AND CHD RISK EQUIVALENTS: ??<100 MULTIPLE (2+) FACTORS: ??<130 ZERO TO ONE RISK FACTOR: ??<160 CHD RELATIVE RISK RATIO (TOTAL/HDL) 4.03 0.0 - 5.0 [facility] (CLIA# [id number]) Comment:(0.8 X AVERAGE) 03/10/2007 03/10/2007 3:1 8 PM EDT us Florencia Em MD LABORATORY Final Result Performing Organization Address [facility] Co de Phone Number [facility] (CLIA# [id number]) [address] [place] [address] * CBC 5 PART DIFF (03/10/2007) WHITE BLOOD COUNT 6.6 3.8 - 10.8 THOUS/UL [facility] (CLIA# [id number]) RBC 4.12 3.80 - 5.10 MIL/UL [facility] (CLIA# [id number]) Hemoglobin 12.5 11.7 - 15.5 G/DL [facility] (CLIA# [id number]) HCT (HEMATOCRIT) 37 35.0 - 45.0 % [facility] (CLIA# [id number]) MCV 90 80.0 - 100.0 FL [facility] (CLIA# [id number]) MCH 30 27.0 - 33.0 PG [facility] (CLIA# [id number]) MCHC 34 32.0 - 36.0 G/DL [facility] (CLIA# [id number]) BAND % 0 0 - 5 % [facility] (CLIA# [id number]) NEUTROPHIL % 52 48 - 75 % [facility] (CLIA# [id number]) LYMPHOCYTE % 37 17 - 40 % [facility] (CLIA# [id number]) MONOCYTE % 7 0 - 14 % [facility] (CLIA# [id number]) EOSINOPHIL % 3 0 - 5 % [facility] (CLIA# [id number]) BASOPHIL % 1 0 - 3 % [facility] (CLIA# [id number]) ATYPICAL LYMPHOCYTE % 0 0 - 5 % [facility] (CLIA# [id number]) PLATELETS 330 140 - 400 THOUS/UL [facility] (CLIA# [id number]) BANDS # 0 0 - 750 CELLS/MCL [facility] (CLIA# [id number]) NEUTROPHILS # 3432 1500 - 7800 CELLS/MCL [facility] (CLIA# [id number]) LYMPHOCYTES # 2442 850 - 3900 CELLS/MCL [facility] (CLIA# [id number]) MONOCYTES # 462 200 - 950 CELLS/MCL [facility] (CLIA# [id number]) EOSINOPHILS # 198 15 - 550 CELLS/MCL [facility] (CLIA# [id number]) BASOPHILS # 66 0 - 200 CELLS/MCL [facility] (CLIA# [id number]) ATYPICAL LYMPHOCYTES # 0 0 - 200 /UL [facility] (CLIA# [id number]) RDW 12.7 11.0 - 15.0 % [facility] (CLIA# [id number]) MPV 8.5 7.5 - 11.5 FL [facility] (CLIA# [id number]) 03/10/2007 03/10/2007 3:1 8 PM EDT us Florencia Em MD LAB SAME DAY RESULT Final Result Performing Organization Address [facility] Co de Phone Number [facility] (CLIA# [id number]) [address] [place] [address] * BASIC METABOLIC PANEL (03/10/2007) CALCIUM 9.2 8.6 - 10.2 MG/DL [facility] (CLIA# [id number]) BUN 8 7 - 25 MG/DL [facility] (CLIA# [id number]) CREATININE 0.7 0.5 - 1.2 MG/DL [facility] (CLIA# [id number]) BUN/Creatinine Ratio 11 6 - 25 [facility] (CLIA# [id number]) Glucose 90 65 - 99 MG/DL [facility] (CLIA# [id number]) SODIUM 137 135 - 146 MMOL/L [facility] (CLIA# [id number]) POTASSIUM 4.4 3.5 - 5.3 MMOL/L [facility] (CLIA# [id number]) CHLORIDE 101 98 - 110 MMOL/L [facility] (CLIA# [id number]) CARBON DIOXIDE 25 21 - 33 MMOL/L [facility] (CLIA# [id number]) 03/10/2007 03/10/2007 3:1 8 PM EDT us Florencia Em MD LAB SAME DAY RESULT Final Result Performing Organization Address [facility] Co de Phone Number [facility] (CLIA# [id number]) [address] [place] [address] documented in this encounter Visit Diagnoses Diagnosis ROUTINE GENERAL MEDICAL EXAMINATION AT A HEALTH CARE FACILITY Routine general medical examination at a health care facility documented in this encounter Additional Health Concerns Infection Onset Date Last Indicated Resolved Time COVID-19 Confirmed 04/26/2021 04/26/2021 2 8:12 PM EST COVID-19 Confirmed 08/13/2022 08/13/2022 documented as of this encounter Care Teams Continuity Editor Relationship Specialty Start Date End Date Florencia Em MD [address] [place] [address] PCP - General 03/04/07 05/11/21 Florencia Em MD [address] [place] [address] PCP - General Internal Medicine 05/27/21 documented as of this encounter
--- OUTSIDE RECORDS SUMMARY | 2024-09-13 19:59 | XMS_ITS | Encounter Summary ---
Author Organization [facility] Address [address] [place] [address] Care Team Providers Care Solar Water Heater Installer Name Role Phone Florencia Em MD Primary Care Provider [phone] Reason for Visit * Reason Comments Care Coordination Communication Hospital F/U Encounter Details Date Type Department Care Team (Late st Contact Info) Description 09/11/2024 Telephone [facility] [address] [place] [address] Florencia Em MD [address] [place] [address] Care Coordination Communication ; Hospital F/U Social History Tobacco Use Types Packs/Day Years [...] encounter Miscellaneous Notes * Telephone Encounter - Sofy Cedeño RN - 09/11/2024 10:29 AM EST CM contacting [facility]- [place] Ref number [phone]. CM spoke with patient's mother also. [facility] CM will reach out to patient's mom * Telephone Encounter - Helena Navarrete - 09/11/2024 9:17 AM EST Pt mother calling in (PRF on file) to report pt was admitted to [facility] on 09/06 for abdominal pain. Mother reports pt threatened to harm herself due to the excruciating abdominal pain and her anxiety. Pt was transported to a facility out in [place] and mother states pt does not like it there. Pt mother would like to know if there are any facilities closer to here. Hospital notes in EPIC. documented in this encounter Plan of Treatment Upcoming Encounters Date Type Department Care Team (Late st Contact Info) Description 12/11/2024 10:00 AM EDT Office Visit [facility] [address] [place] [phone] Angeli Cuevas NP [address] [place] [address] Abdominal discomfort 06/26/2025 2:00 PM EST Radiology [facility] Mammography [address] [place] [phone] documented as of this encounter Visit Diagnoses Not on filedocumented in this encounter Additional Health Concerns Infection Onset Date Last Indicated Resolved Time COVID-19 Confirmed 08/13/2022 08/13/2022 documented as of this encounter Care Teams Solar Water Heater Installer Relationship Specialty Start Date End Date Florencia Em MD [address] [place] [address] PCP - General Internal Medicine 05/27/21 documented as of this encounter
--- OUTSIDE RECORDS SUMMARY | 2024-09-13 19:59 | XMS_ITS | Encounter Summary ---
Author Organization [facility] Address [address] [place] [address] Care Team Providers Care Lease Purchase Driver Name Role Phone Florencia Em MD Primary Care Provider [phone] Florencia Em MD Primary Care Provider [phone] Encounter Details Date Type Department Care Team (Late st Contact Info) Description 09/17/2020 Orders Only [facility] [address] [place] [address] Florencia Em MD [address] [place], [place] [phone] Social History Tobacco Use Types Packs/Day Years Used Date Smoking Tobacco: Never Smokeless Tobacco: Never Alcohol Use Standard Drinks/Week Comments No 0 (1 standard drink = 0.6 oz pur e alcohol) PHQ-2 Answer Date Recorded PHQ-2 Score 0 09/17/2020 Comments No Sex and Gender Information Value Date Recorded Sex Assigned at Not on file Legal Sex Female 3:59 AM EDT Gender Identity Not on file Sexual Orientation Not on file COVID-19 Exposure Response Date Recorded In the last month, have you been in contact with someone who was confirmed or suspected to have Coronavirus / COVID-19? No / Unsure 09/17/2020 12:56 PM EST documented as of this encounter Miscellaneous Notes * Result Encounter Note - Florencia Em MD - 09/17/2020 2:12 PM EST msg snet? heam appt * Result Encounter Note - Florencia Em MD - 09/17/2020 2:12 PM EST Emails ent to [facility] heam appt. * Result Encounter Note - Florencia Em MD - 09/17/2020 2:12 PM EST Pt was supposed to see a Head Worker for the elevated Platelet count. No showed recent appt. pls ask to [facility] appt, * Result Encounter Note - Florencia Em MD - 09/17/2020 2:12 PM EST Letter sent to [facility] appt with heam documented in this encounter Plan of Treatment Upcoming Encounters Date Type Department Care Team (Late st Contact Info) Description 12/11/2024 10:00 AM EDT Office Visit [facility] [address] [place] [address] Angeli Cuevas NP [address] [place] [address] Abdominal discomfort 06/26/2025 2:00 PM EST Radiology [facility] Mammography [address] [place] [phone] documented as of this encounter Procedures * Due to [place] state law, this organization might not be sharing negative HIV tests. Procedure Name Priority Date/Time Associated Diagnosis Comments FSH AND LH Routine 09/17/2020 2:12 PM EST Screening for endocrine disorder TESTOSTERONE,TOTAL, MS Routine 09/17/2020 2:12 PM EST Screening for endocrine disorder CBC INCLUDES DIFFERENTIAL AND PLATELET COUNT Routine 09/17/2020 2:12 PM EST Screening, anemia, deficiency, iron VENIPUNCTURE Routine 09/17/2020 2:12 PM EST Screening, lipid HEMOGLOBIN A1C Routine 09/17/2020 2:12 PM EST Screening for diabetes mellitus DHEA SULFATE Routine 09/17/2020 2:12 PM EST Screening for endocrine disorder VITAMIN D, 25-HYDROXY, TOTAL, IMMUNOASSAY Routine 09/17/2020 2:12 PM EST Encounter for vitamin deficiency screening LIPID PANEL WITH REFLEX TO DIRECT LDL Routine 09/17/2020 2:12 PM EST Screening, lipid BASIC METABOLIC PANEL WITH (GFR) Routine 09/17/2020 2:12 PM EST Screening, lipid Screening for diabetes mellitus documented in this encounter Results * Due to [place] state law, this organization might not be sharing negative HIV tests. * VITAMIN D, 25-HYDROXY, TOTAL, IMMUNOASSAY (09/17/2020 2:12 PM EST) Vitamin D, 25-OH, Total 32 30 - 100 ng/mL [facility] Comment: Vitamin D Status ? 25-OH Vitamin D: Deficiency: ?<20 ng/mL Insufficiency: ? 20 - 29 ng/mL Optimal: ? > or = 30 ng/mL For 25-OH Vitamin D testing on patients on D2-supplementation and patients for whom quantitation of D2 and D3 fractions is required, the TaykeyureD(TM) 25-OH VIT D, (D2,D3), LC/MS/MS is recommended: order code 43171 (patients >2yrs). COMMENT SEE NOTE [facility] Comment: See Note 1 Note 1 For additional information, please refer to http://education.mygall.[employer]/faq/VCX531 (This link is being provided for informational/ educational purposes only.) 09/17/2020 2:12 PM EST 09/18/2020 2:13 AM EST Narrative Resulting Agency Comment [id number] Florencia Em MD LABORATORY Final Result Performing Organization Address [facility] de Phone Number [facility] [address] [place] [address] * TESTOSTERONE,TOTAL, MS (09/17/2020 2:12 PM EST) Testosterone 24 2 - 45 ng/dL [facility] Comment: For additional information, please refer to http://education.vogogo/faq/ QtnnmZuskkahwyuupAUUBSNBBD936 (This link is being provided for informational/ educational purposes only.) This test was developed and its analytical performance characteristics have been determined by [facility] [place], [place]. It has not been cleared or approved by the U.S. Food and Drug Administration. This assay has been validated pursuant to the CLIA regulations and is used for clinical purposes. 09/17/2020 2:12 PM EST 09/18/2020 2:13 AM EST Narrative Resulting Agency Comment [id number] Florencia Em MD LABORATORY Final Result Performing Organization Address [facility] Phone Number [facility] [address] [place] [address] * (ABNORMAL) LIPID PANEL WITH REFLEX TO DIRECT LDL (09/17/2020 2:12 PM EST) Cholesterol 164 <200 mg/dL [facility] HDL Cholesterol 41(L) > OR = 50 mg/dL [facility] Triglyceride 179(H) <150 mg/dL [facility] LDL Cholesterol 95 mg/dL (calc) [facility] Comment: Reference range: [...] LDL-C. Jason OLIVER et al. NATHALIA. 2013;310(19): 3759-1330 (http://education.mygall.[employer]/faq/PCD576) CHOL/HDL Ratio 4.0 <5.0 (calc) [facility] Cholesterol Non-HDL 123 <130 mg/dL (calc) [facility] Comment: For patients with diabetes plus 1 major ASCVD risk factor, treating to a non-HDL-C goal of <100 mg/dL (LDL-C of <70 mg/dL) is considered a therapeutic option. 09/17/2020 2:12 PM EST 09/18/2020 2:13 AM EST Narrative Resulting Agency Comment [id number] Florencia Em MD LABORATORY Final Result Performing Organization Address [facility] Phone Number [facility] [address] [place] [address] * (ABNORMAL) HEMOGLOBIN A1C (09/17/2020 2:12 PM EST) Hemoglobin A1C 5.7(H) <5.7 % of total Hgb [facility] [...] of diabetes for children. Estimated Average Glucose 126 mg/dL (calc) [facility] 09/17/2020 2:12 PM EST 09/18/2020 2:13 AM EST Narrative Resulting Agency Comment [id number] Florencia Em MD LABORATORY Final Result Performing Organization Address [facility] de Phone Number [facility] [address] [place] [address] * FSH AND LH (09/17/2020 2:12 PM EST) FSH 7.2 mIU/mL [facility] Comment: ?Reference Range ? Follicular Phase ? 2.5-10.2 ? Mid-cycle Peak ? 3.1-17.7 ? Luteal Phase ? 1.5- 9.1 ? Postmenopausal ? 23.0-116.3 ? Luteinizing Hormone (LH) 15.1 mIU/mL [facility] Comment: ? Reference Range ? Follicular Phase ??1.9-12.5 ? Mid-Cycle Peak ?8.7-76.3 ? Luteal Phase ?0.5-16.9 ? Postmenopausal ?10.0-54.7 09/17/2020 2:12 PM EST 09/18/2020 2:13 AM EST Narrative Resulting Agency Comment [id number] Florencia Em MD LABORATORY Final Result Performing Organization Address [facility] de Phone Number [facility] [address] [place] [address] * DHEA SULFATE (09/17/2020 2:12 PM EST) DHEA SULFATE 241 23 - 266 mcg/dL [facility] 09/17/2020 2:12 PM EST 09/18/2020 2:13 AM EST Narrative Resulting Agency Comment [id number] Florencia Em MD LABORATORY Final Result Performing Organization Address [facility] de Phone Number [facility] [address] [place] [address] * (ABNORMAL) CBC INCLUDES DIFFERENTIAL AND PLATELET COUNT (09/17/2020 2:12 PM EST) Pathologist [facility] WBC 9.4 3.8 - 10.8 Thousand/u L [facility] RBC 4.34 3.80 - 5.10 Million/uL [facility] Hemoglobin 12.4 11.7 - 15.5 g/dL [facility] Hematocrit 36.9 35.0 - 45.0 % [facility] MCV 85.0 80.0 - 100.0 fL [facility] MCH 28.6 27.0 - 33.0 pg [facility] MCHC 33.6 32.0 - 36.0 g/dL [facility] RDW 12.4 11.0 - 15.0 % [facility] PLT 425(H) 140 - 400 Thousand/u L [facility] MPV 10.5 7.5 - 12.5 fL [facility] Neutrophils # 5330 1500 - 7800 cells/uL [facility] Lymphocytes # 3130 850 - 3900 cells/uL [facility] Monocytes # 517 200 - 950 cells/uL [facility] Eosinophils # 367 15 - 500 cells/uL [facility] Basophils # 56 0 - 200 cells/uL [facility] Neutrophils % 56.7 % [facility] Lymphocytes % 33.3 % [facility] Monocytes % 5.5 % [facility] Eosinophils % 3.9 % [facility] Basophils % 0.6 % [facility] 09/17/2020 2:12 PM EST 09/18/2020 2:13 AM EST Narrative Resulting Agency Comment [id number] Florencia Em MD LAB SAME DAY RESULT Final Result Performing Organization Address City/State/[facility] Co de Phone Number [facility] [address] [place] [address] * BASIC METABOLIC PANEL WITH (GFR) (09/17/2020 2:12 PM EST) Pathologist [facility] Glucose 86 65 - 99 mg/dL [facility] Comment:Fasting reference in [facility] Urea Nitrogen Blood (BUN) 8 7 - 25 mg/dL [facility] Creatinine 0.74 0.50 - 1.10 mg/dL [facility] EGFR 102 > OR = 60 mL/min/1. 73m2 [facility] GFR () 118 > OR = 60 mL/min/1. 73m2 [facility] BUN/Creatinine Ratio NOT APPLICABLE 6 - 22 (calc) [facility] Sodium 138 135 - 146 mmol/L [facility] Potassium 4.4 3.5 - 5.3 mmol/L [facility] Chloride 101 98 - 110 mmol/L [facility] Carbon dioxide 28 20 - 32 mmol/L [facility] Calcium 9.6 8.6 - 10.2 mg/dL [facility] 09/17/2020 2:12 PM EST 09/18/2020 2:13 AM EST Narrative [facility] - 09/18/2020 7:40 AM EST Please note that this estimated GFR does not include an adjustment for the patient's height or weight, and can therefore, be viewed as reliable only for patients with heights between 60 and 72 . More precise quantification using a 24-hour urine sample or height-based algorithm is recommended for patients outside of this range of height and for those individuals with more precise needs for GFR calculation. Resulting Agency Comment [id number] Florencia Em MD LABORATORY Final Result Performing Organization Address [facility] Co de Phone Number [facility] [address] [place] [address] * ALANINE AMINOTRANSFERASE (ALT), SERUM (09/17/2020 2:12 PM EST) ALT (SGPT) 26 6 - 29 U/L [facility] 09/17/2020 2:12 PM EST 09/18/2020 2:13 AM EST Narrative Resulting Agency Comment [id number] Florencia Em MD LAB SAME DAY RESULT Final Result Performing Organization Address [facility] Co de Phone Number [facility] [address] [place] [address] documented in this encounter Visit Diagnoses Diagnosis Screening, lipid Screening for lipoid disorders Screening for diabetes mellitus Screening, anemia, deficiency, iron Screening for iron deficiency anemia Screening for endocrine disorder Encounter for vitamin deficiency screening Screening for other and unspecified endocrine, nutritional, metabolic, and immunity disorders documented in this encounter Additional Health Concerns Infection Onset Date Last Indicated Resolved Time COVID-19 Confirmed 04/26/2021 04/26/2021 8:12 PM EST COVID-19 Confirmed 08/13/2022 08/13/2022 documented as of this encounter Care Teams Lease Purchase Driver Relationship Specialty Start Date End Date Florencia Em MD [address] [place] [address] PCP - General 03/04/07 05/11/21 Florencia Em MD [address] [facility] [address] PCP - General Internal Medicine 05/27/21 documented as of this encounter
--- OUTSIDE RECORDS SUMMARY | 2024-09-13 19:59 | XMS_ITS | Encounter Summary ---
Author Organization [facility] Address [address] [place] [address] Care Team Providers Care Comparative Sociology Professor Name Role Phone Florencia Em MD Primary Care Provider [phone] Florencia Em MD Primary Care Provider [phone] Encounter Details Date Type Department Care Team (Late st Contact Info) Description 09/23/2011 Orders Only [facility] [address] [place] [address] Florencia Em MD [address], [place] [phone] Social History Tobacco Use Types Packs/Day Years [...] Progress Notes * Florencia Em MD - 09/27/2011 12:05 PM EDTQuick Note: Letter sent * Latasha Gonzalez - 09/25/2011 3:02 PM ESTQuick Note: The patients lab results are at a normal/stable level by the protocol guidelines. The result letterwas completed and sent to patient. documented in this encounter Plan of Treatment Upcoming Encounters Date Type Department Care Team (Late st Contact Info) Description 12/11/2024 10:00 AM EDT Office Visit [facility] [address] [place] [facility] [place] [phone] Angeli Cuevas NP [address] [place] [address] Abdominal discomfort 06/26/2025 2:00 PM EST Radiology [facility] Mammography [address] [place] [phone] documented as of this encounter Procedures * Due to [place] [employer] law, this organization might not be sharing negative HIV tests. Procedure Name Priority Date/Time Associated Diagnosis Comments NEISSERIA GONORRHOEAE (GC), SDA (GENITAL SWAB) Routine 09/23/2011 2:37 PM EST Irregular menses CHLAMYDIA TRACHOMATIS, SDA (GENITAL SWAB) Routine 09/23/2011 2:37 PM EST Irregular menses FUNGAL STAIN, BRIANNA Routine 09/23/2011 2:3 7 PM EST Irregular menses CBC INCLUDES DIFFERENTIAL AND PLATELET COUNT Routine 09/23/2011 2:37 PM EST Irregular menses HCG, TOTAL, QL Routine 09/23/2011 2:37 PM EST Irregular menses TSH, 3RD GENERATION Routine 09/23/2011 2 :37 PM EST Irregular menses LUTEINIZING HORMONE (LH), SERUM Routine 09/23/2011 2:37 PM EST Irregular menses FSH Routine 09/23/2011 2:37 PM EST Irregular menses documented in this encounter Results * Due to [place] [employer] law, this organization might not be sharing negative HIV tests. * FUNGAL STAIN, BRIANNA (09/23/2011 2:37 PM EST) Fungus identified SEE NOTE [facility] Comment: {FUNGAL STAIN {[id number]) ??FUNGAL STAIN ??MICRO NUMBER: ?[id number] ??TEST STATUS: ? FINAL ??SPECIMEN SOURCE: ?? NOT GIVEN ??SPECIMEN QUALITY: ??ADEQUATE ??RESULT: ?No fungal elements seen. 09/23/2011 2:37 PM EST 09/23/2011 9:37 PM EST Narrative Resulting Agency Comment [id number] Florencia Em MD LABORATORY Final Result Performing Organization Address [facility] de Phone Number [facility] [address] [place] [address] * NEISSERIA GONORRHOEAE (GC), SDA (GENITAL SWAB) (09/23/2011 2:37 PM EST) Pathologist [facility] Neisseria gonorrhoeae DNA NOT DETECTED NOT DETECTED [facility] Comment:{NEISSERIA GONORRHOE AE DNA, SDA {[id number]) COMMENT SEE NOTE [facility] Comment: {COMMENT {[id number]) This test was performed using the BD ProbeTec(TM) Chlamydia trachomatis and Neisseria gonorrhoeae Amplified DNA Assays. 09/23/2011 2:37 PM EST 09/23/2011 9:37 PM EST Narrative Resulting Agency Comment [id number] Florencia Em MD LABORATORY Final Result Performing Organization Address [facility] Co de Phone Number [facility] [address] [place] [phone] * CHLAMYDIA TRACHOMATIS, SDA (GENITAL SWAB) (09/23/2011 2:37 PM EST) Chlamydia trachomatis DNA NOT DETECTED NOT DETECTED [facility] Comment:{CHLAMYDIA TRACHOMAT IS DNA, SDA {[id number]) COMMENT SEE NOTE [facility] Comment: {COMMENT {[id number]) This test was performed using the BD ProbeTec(TM) Chlamydia trachomatis and Neisseria gonorrhoeae Amplified DNA Assays. 09/23/2011 2:37 PM EST 09/23/2011 9:37 PM EST Narrative Resulting Agency Comment [id number] Florencia Em MD LABORATORY Final Result [facility] [address] [place] [address] * CBC INCLUDES DIFFERENTIAL AND PLATELET COUNT (09/23/2011 2:37 PM EST) WBC 7.5 3.8 - 10.8 Thousand/u L [facility] Comment:{WHITE BLOOD CELL CO UNT {[id number]) RBC 4.03 3.80 - 5.10 Million/uL [facility] Comment:{RED BLOOD CELL COUN T {[id number]) Hemoglobin 12.1 11.7 - 15.5 g/dL [facility] Comment:{HEMOGLOBIN {[id number]) Hematocrit 36.2 35.0 - 45.0 % [facility] Comment:{HEMATOCRIT {[id number]) MCV 89.7 80.0 - 100.0 fL [facility] Comment:{MCV {[id number]) MCH 30.1 27.0 - 33.0 pg [facility] Comment:{MCH {[id number]) MCHC 33.5 32.0 - 36.0 g/dL [facility] Comment:{MCHC {[id number]) RDW 13.0 11.0 - 15.0 % [facility] Comment:{RDW {[id number]) PLT 361 140 - 400 Thousand/u L [facility] Comment:{PLATELET COUNT {[id number]) MPV 8.9 7.5 - 11.5 fL [facility] Comment:{MPV {[id number]) Neutrophils # 3803 1500 - 7800 cells/uL [facility] Comment:{ABSOLUTE NEUTROPHIL S {[id number]) Lymphocytes # 2955 850 - 3900 cells/uL [facility] Comment:{ABSOLUTE LYMPHOCYTE S {[id number]) Monocytes # 398 200 - 950 cells/uL [facility] Comment:{ABSOLUTE MONOCYTES {[id number]) Eosinophils # 255 15 - 500 cells/uL [facility] Comment:{ABSOLUTE EOSINOPHIL S {[id number]) Basophils # 90 0 - 200 cells/uL [facility] Comment:{ABSOLUTE BASOPHILS {[id number]) Neutrophils % 50.7 % [facility] Comment:{NEUTROPHILS {[id number]) Lymphocytes % 39.4 % [facility] Comment:{LYMPHOCYTES {[id number]) Monocytes % 5.3 % [facility] Comment:{MONOCYTES {[id number]) Eosinophils % 3.4 % [facility] Comment:{EOSINOPHILS {[id number]) Basophils % 1.2 % [facility] Comment:{BASOPHILS {[id number]) 09/23/2011 2:37 PM EST 09/23/2011 9:37 PM EST Narrative Resulting Agency Comment [id number] Florencia Em MD LAB SAME DAY RESULT Final Result Performing Organization Address City/State/[facility] Co de Phone Number [facility] [address] [place] [address] * FSH (09/23/2011 2:37 PM EST) FSH 6.7 mIU/mL [facility] Comment: {FSH {[id number]) ?Reference Range ? Follicular Phase ? 2.5-10.2 ? Mid-cycle Peak ? 3.1-17.7 ? Luteal Phase ? 1.5- 9.1 ? Postmenopausal ? 23.0-116.3 ? 09/23/2011 2:37 PM EST 09/23/2011 9:37 PM EST Narrative Resulting Agency Comment [id number] Florencia Em MD LAB SAME DAY RESULT Final Result Performing Organization Address [facility] de Phone Number [facility] [address] [place] [address] * LUTEINIZING HORMONE (LH), SERUM (09/23/2011 2:37 PM EST) Luteinizing Hormone (LH) 9.9 mIU/mL [facility] Comment: {LH {[id number]) ?Reference Range Follicular Phase ??1.9-12.5 Mid-Cycle Peak ?8.7-76.3 Luteal Phase ?0.5-16.9 Postmenopausal ?10.0-54.7 09/23/2011 2:37 PM EST 09/23/2011 9:37 PM EST Narrative Resulting Agency Comment [id number] Florencia Em MD LAB SAME DAY RESULT Final Result Performing Organization Address [facility] de Phone Number [facility] [address] [place] [address] * HCG, TOTAL, QL (09/23/2011 2:37 PM EST) HCG, Qualitative (Screen) NEGATIVE [facility] Comment: {HCG, TOTAL, QL {[id number]) Reference Range Non-: Negative : ? Positive 09/23/2011 2:37 PM EST 09/23/2011 9:37 PM EST Narrative Resulting Agency Comment [id number] Florencia Em MD LAB SAME DAY RESULT Final Result Performing Organization Address [facility] de Phone Number [facility] [address] [place] [address] * TSH, 3RD GENERATION (09/23/2011 2:37 PM EST) TSH 3.16 mIU/L [facility] Comment: {TSH {[id number]) Reference Range > or = 20 Years ??0.40-4.50 ? Ranges First trimester ?0.20-4.70 Second trimester ?? 0.30-4.10 Third trimester ?0.40-2.70 09/23/2011 2:37 PM EST 09/23/2011 9:37 PM EST Narrative Resulting Agency Comment [id number] Florencia Em MD LABORATORY Final Result [facility] [address] [place] [address] documented in this encounter Visit Diagnoses Diagnosis Irregular menses Irregular menstrual cycle documented in this encounter Additional Health Concerns Infection Onset Date Last Indicated Resolved Time COVID-19 Confirmed 04/26/2021 04/26/2021 2 8:12 PM EST COVID-19 Confirmed 08/13/2022 08/13/2022 documented as of this encounter Care Teams Comparative Sociology Professor Relationship Specialty Start Date End Date Florencia Em MD [address] [place] [address] PCP - General 03/04/07 05/11/21 Florencia Em MD [address] [place] [address] PCP - General Internal Medicine 05/27/21 documented as of this encounter
--- OUTSIDE RECORDS SUMMARY | 2024-09-13 19:59 | XMS_ITS | Encounter Summary ---
Author Organization [facility] Address [address] [place] [address] Care Team Providers Care Filtration Operator Name Role Phone Florencia Em MD Primary Care Provider [phone] Encounter Details Date Type Department Care Team ([facility] st Contact Info) Description 11/28/2021 Orders Only [facility] [address] [place] [address] Jose Maldonado, SACHIN [facility] [address] [address] Social History Tobacco Use Types Packs/Day Years [...] Miscellaneous Notes * Result Encounter Note - Margarita Forbes - 11/28/2021 10:05 AM EDT Patient has preliminary labs will wait on preliminary * Result Encounter Note - Margarita Forbes - 11/28/2021 10:05 AM EDT Please review and advise thank you * Result Encounter Note - Margarita Forbes - 11/28/2021 10:05 AM EDT Please review and advise thank you * Result Encounter Note - Jose Maldonado - 11/28/2021 10:05 AM EDT Please let patient know that all of her labs seem reassuring, there is no evidence of any stool infection. * Result Encounter Note - Vi Evans RN - 11/28/2021 10:05 AM EDT MCM sent documented in this encounter Plan of Treatment Upcoming Encounters Date Type Department Care Team (Late st Contact Info) Description 12/11/2024 10:00 AM EDT Office Visit [facility] [address] [place] [phone] Angeli Cuevas NP [address] [place] [address] Abdominal discomfort 06/26/2025 2:00 PM EST Radiology [facility] Mammography [address] [place] [address] documented as of this encounter Procedures * Due to [place] state law, this organization might not be sharing negative HIV tests. Procedure Name Priority Date/Time Associated Diagnosis Comments URINALYSIS DIP W/ REFLEX TO MICROSCOPIC+CULTURE Routine 11/28/2021 10:05 AM EDT Burning with urination OVA AND PARASITES, SINGLE SET, STOOL WITH PERMANENT STAIN Routine 11/28/2021 10:05 AM EDT Change in stool E. COLI O157 STOOL CULTURE Routine 11/28/2021 10:05 AM EDT Change in stool STOOL CULTURE, SALMONELLA/SHIGELLA ONLY Routine 11/28/2021 10:05 AM EDT Change in stool VENIPUNCTURE Routine 11/28/2021 10:05 AM EDT Other fatigue VITAMIN D, 25-HYDROXY, TOTAL, IMMUNOASSAY Routine 11/28/2021 10:05 AM EDT Other fatigue documented in this encounter Results * Due to [place] state law, this organization might not be sharing negative HIV tests. * URINALYSIS DIP W/ REFLEX TO MICROSCOPIC+CULTURE (11/28/2021 10:05 AM EDT) Color (Urine) YELLOW YELLOW [facility] Appearance (Urine) CLEAR CLEAR [facility] Specific gravity (Urine) 1.005 1.001 - 1.035 [facility] pH (Urine) 7.0 5.0 - 8.0 [facility] Glucose (Urine) NEGATIVE NEGATIVE [facility] Bilirubin (Urine) NEGATIVE NEGATIVE [facility] Ketones (Urine) NEGATIVE NEGATIVE [facility] Hemoglobin (Urine) NEGATIVE NEGATIVE [facility] Protein (Urine) NEGATIVE NEGATIVE [facility] Nitrite (Urine) NEGATIVE NEGATIVE [facility] Leukocyte esterase (Urine) NEGATIVE NEGATIVE [facility] 11/28/2021 10:0 5 AM EDT 11/28/2021 9:56 PM EDT Narrative Resulting Agency Comment [id number] Jose Maldonado NP LABORATORY Final Resul t [facility] [address] [place] [address] * VITAMIN D, 25-HYDROXY, TOTAL, IMMUNOASSAY (11/28/2021 10:05 AM EDT) Vitamin D, 25-OH, Total 30 30 - 100 ng/mL [facility] Comment: Vitamin D Status ? 25-OH Vitamin D: Deficiency: ?<20 ng/mL Insufficiency: ? 20 - 29 ng/mL Optimal: ? > or = 30 ng/mL For 25-OH Vitamin D testing on patients on D2-supplementation and patients for whom quantitation of D2 and D3 fractions is required, the QuestAssureD(TM) 25-OH VIT D, (D2,D3), LC/MS/MS is recommended: order code 47759 (patients >2yrs). See Note 1 Note 1 For additional information, please refer to http://education.Xagenic/faq/WRD542 (This link is being provided for informational/ educational purposes only.) 11/28/2021 10:0 5 AM EDT 11/28/2021 9:56 PM EDT Narrative Resulting Agency Comment [id number] Jose Maldonado NP LABORATORY Final Resul t Performing Organization Address City/State/[facility] Co de Phone Number [facility] [address] [place] [address] * HEMOGLOBIN A1C (11/28/2021 10:05 AM EDT) Hemoglobin A1C 5.3 <5.7 % of total Hgb [facility] Comment: For the purpose of screening for the presence of diabetes: <5.7% ? Consistent with the absence of diabetes 5.7-6.4% ?Consistent with increased risk for diabetes ?(prediabetes) > or =6.5% ??Consistent with diabetes This assay result is consistent with a decreased risk of diabetes. Currently, no consensus exists regarding use of hemoglobin A1c for diagnosis of diabetes in children. According to [place] [employer] (ADA) guidelines, hemoglobin A1c <7.0% represents optimal control in non- diabetic patients. Different metrics may apply to specific patient populations. Standards of Medical Care in Diabetes(ADA). Estimated Average Glucose 111 mg/dL (calc) [facility] 11/28/2021 10:0 5 AM EDT 11/28/2021 9:56 PM EDT Narrative Resulting Agency Comment [id number] Jose Maldonado NP LABORATORY Final Resul t Performing Organization Address [facility] de Phone Number [facility] [address] [place] [address] * E. COLI O157 STOOL CULTURE (11/28/2021 10:05 AM EDT) Escherichia Coli O157:H7 (Stool) SEE NOTE [facility] Comment: ??ESCHERICHIA COLI O157, CULTURE ??Micro Number: ?[id number] ??Test Status: ? Final ??Specimen Source: ?? Stool ??Specimen Quality: ??Adequate ??Result: ?No Escherichia coli O157 isolated ? NOTE: E. coli other than O157 may produce ? Shiga toxin. 11/28/2021 10:0 5 AM EDT 11/28/2021 9:56 PM EDT Narrative Resulting Agency Comment [id number] Jose Maldonado NP LABORATORY Final Resul t Performing Organization Address [facility] Phone Number [facility] [address] [place] [address] * STOOL CULTURE, SALMONELLA/SHIGELLA ONLY (11/28/2021 10:05 AM EDT) Salmonella sp &or Shigella sp identified (Stool) SEE NOTE [facility] Comment: ??SALMONELLA AND SHIGELLA, CULTURE ??Micro Number: ?[id number] ??Test Status: ? Final ??Specimen Source: ?? Stool ??Specimen Quality: ??Adequate ??Result: ?No Salmonella or Shigella isolated 11/28/2021 10:0 5 AM EDT 11/28/2021 9:56 PM EDT Narrative Resulting Agency Comment [id number] Jose Maldonado NP LABORATORY Final Resul t [facility] [address] [place] [address] * OVA AND PARASITES, SINGLE SET, STOOL WITH PERMANENT STAIN (11/28/2021 10:05 AM EDT) Ova+Parasites identified (Stool) SEE NOTE [facility] Comment: ??OVA AND PARASITES, CONC AND PERM SMEAR ??Micro Number: ?[id number] ??Test Status: ? Final ??Specimen Source: ?? Stool ??Specimen Quality: ??Adequate ??CONCENTRATION 1: ?? No ova or parasites seen ??TRICHROME 1: ? No ova or parasites seen ? Routine Ova and Parasite exam may not detect some ? parasites that occasionally cause diarrheal ? illness. Cryptosporidium Antigen and/or Cyclospora ? and Isospora Exam may be ordered to detect these ? parasites. One negative sample does not ? necessarily rule out the presence of a parasitic ? infection. ? For additional information, please refer to ? https://education.Swivel.Partnerbyte/faq/GUW848 ? (This link is being provided for informational/ ? educational purposes only.) 11/28/2021 10:0 5 AM EDT 11/28/2021 9:56 PM EDT Narrative Resulting Agency Comment [id number] Jose Maldonado TRAVEL ACCOMMODATION INSPECTOR LABORATORY Final Resul t [facility] [address] [place] [address] documented in this encounter Visit Diagnoses Diagnosis Change in stool Nonspecific abnormal finding in stool contents Other fatigue Burning with urination Dysuria documented in this encounter Additional Health Concerns Infection Onset Date Last Indicated Resolved Time COVID-19 Confirmed 08/13/2022 08/13/2022 documented as of this encounter Care Teams Filtration Operator Relationship Specialty Start Date End Date Florencia Em MD [address] [place] [address] PCP - General Internal Medicine 05/27/21 documented as of this encounter
--- OUTSIDE RECORDS SUMMARY | 2024-09-13 19:59 | XMS_ITS | Encounter Summary ---
Author Organization [facility] Address [address] [place] [address] Care Team Providers Care Industrial/Organizational Psychologist Name Role Phone Florencia Em MD Primary Care Provider [phone] Florencia Em MD Primary Care Provider [phone] Encounter Details Date Type Department Care Team (Late Contact Info) Description 04/28/2017 Orders Only [facility] [address] [place] [address] Florencia Em MD [address] [place] [address] Social History Tobacco Use Types Packs/Day Years [...] Progress Notes * Florencia Em MD - 04/29/2017 6:04 PM EDT Emails ent documented in this encounter Plan of Treatment Upcoming Encounters Date Type Department Care Team (Late Contact Info) Description 12/11/2024 10:00 AM EDT Office Visit [facility] [address] [place] [phone] Angeli Cuevas NP [address] [place] [address] Abdominal discomfort 06/26/2025 2:00 PM EST Radiology [facility] Mammography [address] [place] [address] documented as of this encounter Procedures * Due to [place] [employer] law, this organization might not be sharing negative HIV tests. Procedure Name Priority Date/Time Associated Diagnosis Comments CBC INCLUDES DIFFERENTIAL AND PLATELET COUNT Routine 04/28/2017 3:19 PM EDT Routine adult health maintenance HCG, (HUMAN CHORIONIC GONADOTROPIN), TOTAL, QUANTITATIVE Routine 04/28/2017 3:19 PM EDT Amenorrhea LIPID PANEL WITH REFLEX TO DIRECT LDL Routine 04/28/2017 3:19 PM EDT Routine adult health maintenance BASIC METABOLIC PANEL WITH (GFR) Routine 04/28/2017 3:19 PM EDT Routine adult health maintenance documented in this encounter Results * Due to [place] [employer] law, this organization might not be sharing negative HIV tests. * HCG, (HUMAN CHORIONIC GONADOTROPIN), TOTAL, QUANTITATIVE (04/28/2017 3:19 PM EDT) HCG, Total, Quantitative <2 mIU/mL [facility] Comment: Reference Range Non or premenopausal ?<5 Postmenopausal ? <10 Values from different assay methods may vary. The use of this assay to monitor or to diagnose patients with cancer or any condition unrelated to has not been cleared or approved by the FDA or the exterminator helper termite of the assay. 04/28/2017 3:19 PM EDT 04/28/2017 10:28 PM EDT Narrative Resulting Agency Comment [id number] Floerncia Em MD LAB SAME DAY RESULT Final Result [facility] [address] [place] [address] * (ABNORMAL) LIPID PANEL WITH REFLEX TO DIRECT LDL (04/28/2017 3:19 PM EDT) Cholesterol 171 <200 mg/dL [facility] HDL Cholesterol 40(L) >50 mg/dL [facility] Triglyceride 251(H) <150 mg/dL [facility] LDL Cholesterol 95 mg/dL (calc) [facility] Comment: Reference range: <100 Desirable range <100 mg/dL for patients with CHD or diabetes and <70 mg/dL for diabetic patients with known heart disease. LDL-C is now calculated using the Jason-Jessy calculation, which is a validated novel method providing better accuracy than the Friedewald equation in the estimation of LDL-C. Jason SS et al. NATHALIA. 2013;310(19): 6363-3297 (http://education.[employer]/faq/OWQ546) CHOL/HDL Ratio 4.3 <5.0 (calc) [facility] Cholesterol Non-HDL 131(H) <130 mg/dL (calc) [facility] Comment: For patients with diabetes plus 1 major ASCVD risk factor, treating to a non-HDL-C goal of <100 mg/dL (LDL-C of <70 mg/dL) is considered a therapeutic option. 04/28/2017 3:19 PM EDT 04/28/2017 10:28 PM EDT Narrative Resulting Agency Comment [id number] Florencia Em MD LABORATORY Final Result [facility] [address] [place] [address] * (ABNORMAL) BASIC METABOLIC PANEL WITH (GFR) (04/28/2017 3:19 PM EDT) Glucose 104(H) 65 - 99 mg/dL [facility] Comment: ? Fasting reference interval For someone without known diabetes, a glucose value between 100 and 125 mg/dL is consistent with prediabetes and should be confirmed with a follow-up test. Urea Nitrogen Blood (BUN) 9 7 - 25 mg/dL [facility] Creatinine 0.66 0.50 - 1.10 mg/dL [facility] GFR 114 > OR = 60 mL/min/1. 73m2 [facility] GFR () 133 > OR = 60 mL/min/1. 73m2 [facility] BUN/Creatinine Ratio NOT APPLICABLE 6 - 22 (calc) [facility] Sodium 138 135 - 146 mmol/L [facility] Potassium 3.9 3.5 - 5.3 mmol/L [facility] Chloride 100 98 - 110 mmol/L [facility] Carbon dioxide 28 20 - 31 mmol/L [facility] Calcium 9.3 8.6 - 10.2 mg/dL [facility] 04/28/2017 3:19 PM EDT 04/28/2017 10:28 PM EDT Narrative [facility] - 04/29/2017 2:44 AM EDT Please note that this estimated GFR does [...] needs for GFR calculation. Resulting Agency Comment [id number] Florencia Em MD LABORATORY Final Result [facility] [address] [place] [address] * CBC INCLUDES DIFFERENTIAL AND PLATELET COUNT (04/28/2017 3:19 PM EDT) WBC 10.0 3.8 - 10.8 Thousand/u L [facility] RBC 4.19 3.80 - 5.10 Million/uL [facility] Hemoglobin 12.2 11.7 - 15.5 g/dL [facility] Hematocrit 36.3 35.0 - 45.0 % [facility] MCV 86.7 80.0 - 100.0 fL [facility] MCH 29.1 27.0 - 33.0 pg [facility] MCHC 33.5 32.0 - 36.0 g/dL [facility] RDW 12.8 11.0 - 15.0 % [facility] PLT 365 140 - 400 Thousand/u L [facility] MPV 9.1 7.5 - 12.5 fL [facility] Neutrophils # 5340 1500 - 7800 cells/uL [facility] Lymphocytes # 3520 850 - 3900 cells/uL [facility] Monocytes # 620 200 - 950 cells/uL [facility] Eosinophils # 390 15 - 500 cells/uL [facility] Basophils # 130 0 - 200 cells/uL [facility] Neutrophils % 53.4 % [facility] Lymphocytes % 35.2 % [facility] Monocytes % 6.2 % [facility] Eosinophils % 3.9 % [facility] Basophils % 1.3 % [facility] 04/28/2017 3:19 PM EDT 04/28/2017 10:28 PM EDT Narrative Resulting Agency Comment [id number] Florencia Em MD LAB SAME DAY RESULT Final Result [facility] [address] [place] [address] documented in this encounter Visit Diagnoses Diagnosis Routine adult health maintenance Routine general medical examination at a health care facility Amenorrhea Absence of menstruation documented in this encounter Additional Health Concerns Infection Onset Date Last Indicated Resolved Time COVID-19 Confirmed 04/26/2021 04/26/2021 2 8:12 PM EST COVID-19 Confirmed 08/13/2022 08/13/2022 documented as of this encounter Care Teams Industrial/Organizational Psychologist Relationship Specialty Start Date End Date Florencia Em MD [address] [place] [address] PCP - General 03/04/07 05/11/21 Florencia Em MD [address] [place] [address] PCP - General Internal Medicine 05/27/21 documented as of this encounter
--- OUTSIDE RECORDS SUMMARY | 2024-09-13 19:59 | XMS_ITS | Encounter Summary ---
Author Organization [facility] Address [address] [place] [address] Care Team Providers Care Executive Staff Assistant Name Role Phone Florencia Em MD Primary Care Provider [phone] Florencia Em MD Primary Care Provider [phone] Encounter Details Date Type Department Care Team (Late st Contact Info) Description 02/04/2015 Orders Only [facility] [address] [place] [address] Florencia Em MD [address] [place], [place] [id number] Social History Tobacco Use Types Packs/Day Years [...] Progress Notes * Florencia Em MD - 02/15/2016 7:00 PM EDTQuick Note: pls adv pt that she is due for a 1 yr fu pap. pls getachew * Florencia Em MD - 02/13/2015 11:11 AM EDTQuick Note: email sent, rpeat pap in 1 yr documented in this encounter Plan of Treatment Upcoming Encounters Date Type Department Care Team (Late st Contact Info) Description 12/11/2024 10:00 AM EDT Office Visit [facility] [address] [place] [phone] Angeli Cuevas, SACHIN [address] [place] [address] Abdominal discomfort 06/26/2025 2:00 PM EST Radiology [facility] Mammography [address] [place] [address] documented as of this encounter Procedures * Due to [employer] law, this organization might not be sharing negative HIV tests. Procedure Name Priority Date/Time Associated Diagnosis Comments [facility] FPGS PAP AND HR HPV DNA Routine 02/04/2015 1:54 PM EDT Encounter for routine gynecological examination CBC INCLUDES DIFFERENTIAL AND PLATELET COUNT Routine 02/04/2015 9:14 AM EDT Routine adult health maintenance TSH, 3RD GENERATION Routine 02/04/2015 9 :14 AM EDT Routine adult health maintenance LIPID PANEL WITH REFLEX TO DIRECT LDL Routine 02/04/2015 9:14 AM EDT Routine adult health maintenance BASIC METABOLIC PANEL WITH (GFR) Routine 02/04/2015 9:14 AM EDT Routine adult health maintenance documented in this encounter Results * Due to [employer] law, this organization might not be sharing negative HIV tests. * (ABNORMAL) [facility] FPGS PAP AND HR HPV DNA (02/04/2015 1:54 PM EDT) Clinical information NONE GIVEN [facility] Comment:{CLINICAL INFORMATIO N: {[id number]) Date last menstrual period [id number] [facility] Comment:{LMP: {[id number]) Date of previous PAP smear NONE GIVEN [facility] Comment:{PREV. PAP: {[id number]) Date of previous biopsy NONE GIVEN [facility] Comment:{PREV. BX: {[id number]) Specimen source (Cvx/Vag) Cervix, Endocervix [facility] Comment:{SOURCE: {[id number]) Statement of Adequacy (Cvx/Vag) Satisfactory for evaluation. Endocervical/t ransformation zone component present. [facility] Comment:{STATEMENT OF ADEQUA CY: {[id number]) General categories (Cvx/Vag) EPITHELIAL CELL ABNORMALITY(A) [facility] Comment:{GENERAL CATEGORIZAT ION: {[id number]) Cytology, Pap Smear Atypical Squamous Cells of Undetermined Significance (ASC-US)(A) [facility] Comment:{INTERPRETATION/RESU LT: {[id number]) Cytology study comment (Cvx/Vag) This Pap test has been evaluated with computer assisted technology. [facility] Comment:{COMMENT: {[id number]) Cadmium Liquor Maker (Cvx/Vag) [facility] CT(ASCP) [facility] Comment:{SUPERVISOR WEAVING: { [id number]) Pathologist (Cvx/Vag) Henny Betancourt M.D., Board Certified in Anatomic and Clinical Pathology (electronic signature) Consulting Pathologist [facility]ology [address] [place] [address] [facility] Comment:{PATHOLOGIST: {[id number]) HPV MRNA E6/E7 Not Detected NOT DETECTED [facility] Comment: {HPV mRNA E6/E7, [facility] VIAL {[id number]) This test was performed using the APTIMA HPV Assay ([employer] This assay detects E6/E7 viral messenger RNA (mRNA) from 14 high-risk HPV types (16,18,31,33,35,39,45,51,52,56,58,59,66,68). The analytical performance characteristics of this assay, when used to test [facility] specimens, have been determined by [employer] 02/04/2015 1:54 PM EDT 02/05/2015 4:17 AM EDT Narrative Resulting Agency Comment [id number] Florencia Em MD PATHOLOGY-INTERFACED Final Resul t Performing Organization Address [facility] de Phone Number [facility] [address] [place] [address] * TSH, 3RD GENERATION (02/04/2015 9:14 AM EDT) TSH 3.10 mIU/L [facility] Comment: {TSH {[id number]) ?Reference Range ?> or = 20 Years ??0.40-4.50 ? Ranges ?First trimester ?0.26-2.66 ?Second trimester ?? 0.55-2.73 ?Third trimester ?0.43-2.91 02/04/2015 9:14 AM EDT 02/04/2015 2:43 PM EDT Narrative Resulting Agency Comment [id number] Florencia Em MD LABORATORY Final Result Performing Organization Address [facility] Phone Number [facility] [address] [place] [address] * (ABNORMAL) LIPID PANEL WITH REFLEX TO DIRECT LDL (02/04/2015 9:14 AM EDT) Cholesterol 161 125 - 200 mg/dL [facility] Comment:{CHOLESTEROL, TOTAL {[id number]) HDL Cholesterol 34(L) > OR = 46 mg/dL [facility] Comment:{HDL CHOLESTEROL {[id number]) Triglyceride 115 <150 mg/dL [facility] Comment:{TRIGLYCERIDES {[id number]) LDL Cholesterol 104 <130 mg/dL (calc) [facility] Comment: {LDL-CHOLESTEROL {[id number]) Desirable range <100 mg/dL for patients with CHD or diabetes and <70 mg/dL for diabetic patients with known heart disease. CHOL/HDL Ratio 4.7 < OR = 5.0 (calc) [facility] Comment:{CHOL/HDLC RATIO {[id number]) Cholesterol Non-HDL 127 mg/dL (calc) [facility] Comment: {NON HDL CHOLESTEROL {[id number]) Target for non-HDL cholesterol is 30 mg/dL higher than LDL cholesterol target. 02/04/2015 9:14 AM EDT 02/04/2015 2:43 PM EDT Narrative Resulting Agency Comment [id number] Florencia Em MD LABORATORY Final Result [facility] [address] [place] [address] * BASIC METABOLIC PANEL WITH (GFR) (02/04/2015 9:14 AM EDT) Glucose 98 65 - 99 mg/dL [facility] Comment: {GLUCOSE {[id number]) ? Fasting reference interval Urea Nitrogen Blood (BUN) 8 7 - 25 mg/dL [facility] Comment:{UREA NITROGEN (BUN) {[id number]) Creatinine 0.81 0.50 - 1.10 mg/dL [facility] Comment:{CREATININE {[id number]) GFR 95 > OR = 60 mL/min/1. 73m2 [facility] Comment:{eGFR NON-AFR. AMERI CAN {[id number]) GFR () 111 > OR = 60 mL/min/1. 73m2 [facility] Comment:{eGFR AMERIC AN {[id number]) BUN/Creatinine Ratio NOT APPLICABLE 6 - (calc) [facility] Comment:{BUN/CREATININE RATI O {[id number]) Sodium 136 135 - 146 mmol/L [facility] Comment:{SODIUM {[id number]) Potassium 4.1 3.5 - 5.3 mmol/L [facility] Comment:{POTASSIUM {[id number]) Chloride 101 98 - 110 mmol/L [facility] Comment:{CHLORIDE {[id number]) Carbon dioxide 24 19 - 30 mmol/L [facility] Comment:{CARBON DIOXIDE {[id number]) Calcium 9.7 8.6 - 10.2 mg/dL [facility] Comment:{CALCIUM {[id number]) 02/04/2015 9:14 AM EDT 02/04/2015 2:43 PM EDT Narrative [facility] - 02/04/2015 5:43 PM EDT Please note that this estimated GFR [...] with more precise needs for GFR calculation. Florencia Em MD LABORATORY Final Result [facility] [address] [place] [address] * CBC INCLUDES DIFFERENTIAL AND PLATELET COUNT (02/04/2015 9:14 AM EDT) WBC 7.6 3.8 - 10.8 Thousand/u L [facility] Comment:{WHITE BLOOD CELL CO UNT {[id number]) RBC 4.22 3.80 - 5.10 Million/uL [facility] Comment:{RED BLOOD CELL COUN T {[id number]) Hemoglobin 12.6 11.7 - 15.5 g/dL [facility] Comment:{HEMOGLOBIN {[id number]) Hematocrit 37.0 35.0 - 45.0 % [facility] Comment:{HEMATOCRIT {[id number]) MCV 87.5 80.0 - 100.0 fL [facility] Comment:{MCV {[id number]) MCH 29.7 27.0 - 33.0 pg [facility] Comment:{MCH {[id number]) MCHC 34.0 32.0 - 36.0 g/dL [facility] Comment:{MCHC {[id number]) RDW 13.4 11.0 - 15.0 % [facility] Comment:{RDW {[id number]) PLT 357 140 - 400 Thousand/u L [facility] Comment:{PLATELET COUNT {[id number]) MPV 9.0 7.5 - 11.5 fL [facility] Comment:{MPV {[id number]) Neutrophils # 4765 1500 - 7800 cells/uL [facility] Comment:{ABSOLUTE NEUTROPHIL S {[id number]) Lymphocytes # 2143 850 - 3900 cells/uL [facility] Comment:{ABSOLUTE LYMPHOCYTE S {[id number]) Monocytes # 464 200 - 950 cells/uL [facility] Comment:{ABSOLUTE MONOCYTES {[id number]) Eosinophils # 160 15 - 500 cells/uL [facility] Comment:{ABSOLUTE EOSINOPHIL S {[id number]) Basophils # 68 0 - 200 cells/uL [facility] Comment:{ABSOLUTE BASOPHILS {[id number]) Neutrophils % 62.7 % [facility] Comment:{NEUTROPHILS {[id number]) Lymphocytes % 28.2 % [facility] Comment:{LYMPHOCYTES {[id number]) Monocytes % 6.1 % [facility] Comment:{MONOCYTES {[id number]) Eosinophils % 2.1 % [facility] Comment:{EOSINOPHILS {[id number]) Basophils % 0.9 % [facility] Comment:{BASOPHILS {[id number]) 02/04/2015 9:14 AM EDT 02/04/2015 2:43 PM EDT Narrative Resulting Agency Comment [id number] Florencia Em MD LAB SAME DAY RESULT Final Result [facility] [address] [place] [address] documented in this encounter Visit Diagnoses Diagnosis Screening for diabetes mellitus Routine adult health maintenance Routine general medical examination at a health care facility documented in this encounter Additional Health Concerns Infection Onset Date Last Indicated Resolved Time COVID-19 Confirmed 04/26/2021 04/26/2021 2 8:12 PM EST COVID-19 Confirmed 08/13/2022 08/13/2022 documented as of this encounter Care Teams Executive Staff Assistant Relationship Specialty Start Date End Date Florencia Em MD [address] [place] [address] PCP - General 03/04/07 05/11/21 Florencia Em MD [address] [place] [address] PCP - General Internal Medicine 05/27/21 documented as of this encounter
--- OUTSIDE RECORDS SUMMARY | 2024-09-13 19:59 | XMS_ITS | Encounter Summary ---
Author Organization [facility] Address [address] [place] [address] Care Team Providers Care Tv Production Assistant Name Role Phone Florencia Em MD Primary Care Provider [phone] Encounter Details Date Type Department Care Team (Late st Contact Info) Description 09/04/[id number] [place] [address], Unknown Provider Social History Tobacco Use Types [...] as of this encounter ED Notes * [facility], Unknown Provider - 09/04/2024 2:21 PM EST ED Provider Notes by David Mosqueda MD at 09/04/2024 9:50 AM Author: David Mosqueda MD Service: Emergency Medicine Author Type: Physician Filed: 09/04/2024 2:21 PM Date of Service: 09/04/2024 9:50 AM Status: Signed Base Manager: David Mosqueda MD (Physician) Related Notes: Original Note by HEBER De Leon (Physician Assurance Associate) filed at 09/04/2024 1:30 PM History HPI: Chief Complaint Patient presents with ??? Abdominal Pain Patient is a 44-year-old female with history of anxiety, depression, chronic abdominal pain presenting with generalized abdominal pain and decreased bowel movements. Patient notes for the last month has had constant abdominal pain all over her abdomen, described as sharp in nature and worsened after eating. States that she has not had pain like this in the past, but does note that she was on omeprazole as of 2 months ago, for which she states she ran out. States she has had nausea, no vomiting.Also notes an acidic feeling going up and down her chest, worsening her nausea. States she has haddecreased bowel movements in the last 1 month, which she states is normal for her. States few months ago, tried MiraLAX, Dulcolax and senna for similar symptoms, but has not tried anything in this last month. Has been passing gas. No history of abdominal surgeries. Denies fevers, chills, chest pain, shortness of breath, urinary symptoms, vaginal symptoms. Patient History Past Medical History: Diagnosis Date [...] Physical Exam Physical Exam ED Triage Vitals [09/04/24 0953] Temp Heart Rate Resp BP SpO2 36.8 ??C (98.2 ??F) (!) 117 19 125/87 100 % Temp Source Heart Rate Source Patient Position BP Location Set FiO2 (O2%) Oral Pulse Oximeter Sitting Left arm -- Physical Exam Vitals and nursing note reviewed. Constitutional: General: She is not in acute distress. Appearance: She is well-developed and normal weight. She is not ill-appearing or toxic-appearing. Abdominal: General: Abdomen is flat. Palpations: Abdomen is soft. Tenderness: There is generalized abdominal tenderness. There is no guarding or rebound. Negative signs include Arroyo's sign. Comments: Abdomen soft, nondistended. Minimal generalized tenderness throughout abdomen. Negative Arroyo sign. No guarding, rebound or rigidity. Skin: General: Skin is warm and dry. Capillary Refill: Capillary refill takes less than 2 seconds. Neurological: Mental Status: She is alert. Psychiatric: Mood and Affect: Mood normal. Behavior: Behavior normal. Thought Content: Thought content normal. Judgment: Judgment normal. Medical Decision Making and ED Course Assessment and Plan: Patient is a 44-year-old female with history of anxiety, depression, chronic abdominal pain presenting with generalized abdominal pain and decreased bowel movements. Vital signs reviewed and are reassuring, initially tachycardic at 117 bpm, has since improved to 82 bpm. On exam, Abdomen soft, nondistended. Minimal generalized tenderness throughout abdomen. Negative Arroyo sign. No guarding, rebound or rigidity. Ddx: Gastritis, GERD, PUD, constipation Low suspicion for SBO given patient is passing gas, no history of abdominal surgeries or risk factors for development of SBO, well-documented history of chronic constipation and patient has been off any constipation medications. Patient also has well-documented history of chronic abdominal pain similar to what she is describing today. Initially administered Maalox, Pepcid and Zofran. Patient reports some improvement of symptoms. Have also administered viscous lidocaine, Tylenol, then patient reports nausea returned. Administered Reglan and Toradol. Patient is able to tolerate p.o. Will discharge home with prescription for omeprazole and instructions for managing constipation at home. Encouraged use of [id number]-qknqarq MiraLAX, Dulcolax and senna as needed. Recommend follow-up with PCP. Patient already has follow-up with GI scheduled. Amount and/or Complexity of Data Reviewed: Type of external notes reviewed: PCP Details: For chronic abdominal pain ED Course as of 09/04/24 1319 Mon Sep 04, 2024 1109 Attending note: 44yo with anxiety, depression, has had abdominal pain for a month; constant, all over, sharp, worsened after eating. Was previously on omeprazole but ran out. Nausea, no vomiting. Has acidic sensation going up and down her chest. Also states she's not having regular BM. Is passing gas. Tried meds two months ago for similar, but none recent. No fevers or chills. No history of abdominal surgery. [TA] 1111 From PCP note: Patient with longstanding abdominal pain, constipation, and extensive GI workuppresenting for evaluation of abdominal discomfort and loose stools. Based on today's visit where she has continued sensation of cramps but loose stool, she could be experiencing a viral gastroenteritis superimposed on her functional abdominal pain or IBS. Given that she has a history of severe constipation, I cautioned limited use of loperamide. As her symptoms continue to improve, we discussed supportive care. [TA] 1141 On exam: Well-appearing, heart regular, lungs clear, abdomen soft nontender. Patient has history of chronic abdominal pain, this seems most consistent with GERD/reflux, she has a benign abdomen without any focal tenderness to suggest acute surgical intra-abdominal process. Will plan to screen with labs though given the chronicity have low suspicion for emergent pathology. Patient already hasfollow-up with GI, will defer further workup to the outpatient setting. [TA] ED Course User Index [TA] David Mosqueda MD Midlevel/DEV to Attending - Chart by READING INSTRUCTOR/PA. Attending David Mosqueda MD, was actively involved. Heather Wright : 1980 CSN: [id number] HEBER De Leon 09/04/24 1330 Attending to Midlevel/DEV - I examined the patient and discussed the case with the READING INSTRUCTOR/PA and agree with the findings and plan as documented Heather Wright : 1980 CSN: [id number] David Mosqueda MD 09/04/24 1421 documented in this encounter Plan of Treatment Upcoming Encounters Date Type Department Care Team (Late st Contact Info) Description 12/11/2024 10:00 AM EDT Office Visit [facility] [address] [place] [phone] Angeli Cuevas NP [address] [place] [address] Abdominal discomfort 06/26/2025 2:00 PM EST [address] Mammography [address] [place] [address] documented as of this encounter Procedures * Due to [employer] law, this organization might not be sharing negative HIV tests. Procedure Name Priority Date/Time Associated Diagnosis Comments CBC AUTO DIFFERENTIAL Routine 09/04/2024 10:01 AM EST LIPASE Routine 09/04/2024 10:01 AM EST COMPREHENSIVE METABOLIC PANEL Routine 09/04/2024 10:01 AM EST documented in this encounter Results * Due to [employer] law, this organization might not be sharing negative HIV tests. * (ABNORMAL) COMPREHENSIVE METABOLIC PANEL (09/04/2024 10:01 AM EST) Sodium 138 135 - 145 mmol/L [facility] Potassium 3.6 3.5 - 5.3 mmol/L [facility] Chloride 98 98 - 107 mmol/L [facility] Carbon dioxide 25 22 - 32 mmol/L [facility] Anion gap 15 5 - 15 [facility] Glucose 123(H) 65 - 99 mg/dL [facility] Creatinine 0.72 0.50 - 1.20 mg/dL [facility] Calcium 10.2 8.6 - 10.5 mg/dL [facility] Protein Total (Serum) 8.7(H) 6.0 - 8.0 g/dL [facility] Albumin 4.4 3.5 - 5.2 g/dL [facility] Bilirubin Total 0.4 0.2 - 1.2 mg/dL [facility] Alkaline phosphatase 88 35 - 129 U/L [facility] AST (SGOT) 32 10 - 40 U/L [facility] ALT (SGPT) 17 10 - 40 U/L [facility] Urea Nitrogen Blood (BUN) 3(L) 7 - 23 mg/dL [facility] EGFR >90 >=60 mL/min/1.7 3m2 [facility] Comment: The estimated glomerular filtration [...] in Diagnosing Kidney Disease . GLOBULIN, TOTAL 4.3(H) 2.1 - 4.2 g/dL [facility] A/G RATIO 1.0(L) 1.5 - 3.0 [facility] 09/04/2024 10:0 1 AM EST us Unknown Provider [facility] LABORATORY Final Resu lt Performing Organization Address City/[facility]/ZIP Co de Phone Number [facility] [employer] [facility] [address] [place] [address] * LIPASE (09/04/2024 10:01 AM EST) Lipase 26 13 - 60 U/L [facility] 09/04/2024 10:0 1 AM EST us Unknown Provider [facility] LABORATORY Final Resu lt [facility] [employer] [address] [place] [address] * (ABNORMAL) CBC AUTO DIFFERENTIAL (09/04/2024 10:01 AM EST) WBC 5.7 3.8 - 10.8 10*3/uL [facility] RBC 5.24(H) 3.80 - 5.10 10*6/uL [facility] Hemoglobin 15.0 11.7 - 15.5 g/dL [facility] Hematocrit 44.6 35.0 - 45.0 % [facility] MCV 85.1 80.0 - 100.0 fL [facility] MCH 28.6 27.0 - 33.0 pg [facility] MCHC 33.6 32.0 - 36.0 g/dL [facility] RDW 13.6 11.0 - 15.0 % [facility] PLT 471(H) 140 - 400 10*3/uL [facility] Platelet mean volume 10.1 7.5 - 12.5 fL [facility] Neutrophils % 62.1 % [facility] Granulocytes.artem ture/100 leukocytes 0.2 0.0 - 0.9 % [facility] Lymphocytes % 29.7 % [facility] Monocytes % 5.0 % [facility] Eosinophils % 2.3 % [facility] Basophils % 0.7 % [facility] Neutrophils # 3.51 1.50 - 7.80 10*3/uL [facility] Immature Granulocytes # <0.03 <=0.03 10*3/uL [facility] Lymphocytes # 1.70 0.85 - 3.90 10*3/uL [facility] Monocytes # 0.30 0.20 - 0.95 10*3/uL [facility] Eosinophils # 0.10 0.02 - 0.50 10*3/uL [facility] Basophils # <0.03 0.00 - 0.20 10*3/uL [facility] Erythrocytes.nucl eated/100 leukocytes 0.0 /100 WBCs [facility] Erythrocytes.nucl eated <0.01 <0.01 10*3/uL [facility] 09/04/2024 10:0 1 AM EST us Unknown Provider [facility] LABORATORY Final Resu lt [facility] [employer] [address] [place] [address] documented in this encounter Visit Diagnoses Not on filedocumented in this encounter Additional Health Concerns Infection Onset Date Last Indicated Resolved Time COVID-19 Confirmed 08/13/2022 08/13/2022 documented as of this encounter Care Teams Tv Production Assistant Relationship Specialty Start Date End Date Florencia Em MD [address] [place] [address] PCP - General Internal Medicine 05/27/21 documented as of this encounter
--- OUTSIDE RECORDS SUMMARY | 2024-09-13 19:59 | XMS_ITS | Encounter Summary ---
Author Organization [facility] Address [address] [place] [address] Care Team Providers Care Quality Improvement Consultant Name Role Phone Florencia Em MD Primary Care Provider [phone] Florencia Em MD Primary Care Provider [phone] Encounter Details Date Type Department Care Team (Late st Contact Info) Description 08/22/2009 Orders Only [facility] [address] [place] [address] Florencia Em MD [address] [place], [place] [phone] Social History Tobacco Use Types Packs/Day Years [...] AM EDT Office Visit [facility] [address] [place] [phone] Angeli Cuevas NP [address] [place] [address] Abdominal discomfort 06/26/2025 2:00 PM EST Radiology [facility]. Mammography [address] [place] [phone] documented as of this encounter Results * Due to [place] state law, this organization might not be sharing negative HIV tests. * TSH (THYROTROPIN) (08/23/2009) TSH, THYROTROPIN 3.132 0.40 - 4.50 UIU/ML [facility] 08/23/2009 08/23/2009 7:0 7 PM EST us Florencia Em MD LABORATORY Final Result [facility] [address] [place] [address] * CBC 5 PART DIFF (08/23/2009) WHITE BLOOD COUNT 7.5 3.8 - 10.8 THOUS/UL [facility] RBC 4.24 3.80 - 5.10 MIL/UL [facility] Hemoglobin 12.8 11.7 - 15.5 G/DL [facility] HCT (HEMATOCRIT) 38.2 35.0 - 45.0 % [facility] MCV 90.1 80.0 - 100.0 FL [facility] MCH 30.3 27.0 - 33.0 PG [facility] MCHC 33.6 32.0 - 36.0 G/DL [facility] BAND % 0 0 - 5 % [facility] NEUTROPHIL % 50 48 - 75 % [facility] LYMPHOCYTE % 37 17 - 40 % [facility] MONOCYTE % 9 0 - 14 % [facility] EOSINOPHIL % 3 0 - 5 % [facility] BASOPHIL % 1 0 - 3 % [facility] ATYPICAL LYMPHOCYTE % 0 0 - 5 % [facility] PLATELETS 324 140 - 400 THOUS/UL [facility] BANDS # 0 0 - 750 CELLS/MCL [facility] NEUTROPHILS # 3750 1500 - 7800 CELLS/MCL [facility] LYMPHOCYTES # 2775 850 - 3900 CELLS/MCL [facility] MONOCYTES # 675 200 - 950 CELLS/MCL [facility] EOSINOPHILS # 225 15 - 550 CELLS/MCL [facility] BASOPHILS # 75 0 - 200 CELLS/MCL [facility] ATYPICAL LYMPHOCYTES # 0 0 - 200 CELLS/MCL [facility] RDW 12.6 11.0 - 15.0 % [facility] MPV 8.8 7.5 - 11.5 FL [facility] 08/23/2009 08/23/2009 7:0 7 PM EST Florencia Em MD LAB SAME DAY RESULT Final Result Performing Organization Address [facility] de Phone Number [facility] [address] [place] [address] * (ABNORMAL) BASIC METABOLIC PANEL W/GLOMERULAR FILTRATION RATE (EGFR) (08/23/2009) CALCIUM 9.9 8.6 - 10.2 MG/DL [facility] BUN 8 7 - 25 MG/DL [facility] CREATININE 0.79 0.57 - 1.03 MG/DL [facility] Glucose 100(H) 65 - 99 MG/DL [facility] SODIUM 140 135 - 146 MMOL/L [facility] POTASSIUM 4.3 3.5 - 5.3 MMOL/L [facility] CHLORIDE 100 98 - 110 MMOL/L [facility] CARBON DIOXIDE 27 21 - 33 MMOL/L [facility] GFR > 60 60 AND ABOVE [facility] Comment:UNITS: ML/MIN/1.73 S Q METERS EGFR > 60 60 AND ABOVE [facility] Comment:UNITS: ML/MIN/1.73 S Q METERS 08/23/2009 08/23/2009 7:0 7 PM EST Narrative [facility] - 08/23/2009 10:55 PM EST Please note that this estimated GFR [...] calculation. Florencia Em MD LABORATORY Final Result Performing Organization Address [facility] de Phone Number [facility] [address] [place] [address] * (ABNORMAL) LIPID PANEL + CARDIAC RISK WITH REFLEX TO LDL DIRECT (08/23/2009) CHOLESTEROL, TOTAL 147 125 - 200 MG/DL [facility] TRIGLYCERIDES 127 30 - 149 MG/DL [facility] HDL-CHOLESTEROL 38(L) 40 - 77 MG/DL [facility] LDL-CHOLESTEROL 84 62 - 130 MG/DL [facility] Comment: RISK CATEGORY: ??LDL-CHOLESTEROL GOAL CHD AND CHD RISK EQUIVALENTS: ??<100 MULTIPLE (2+) FACTORS: ??<130 ZERO TO ONE RISK FACTOR: ??<160 CHD RELATIVE RISK RATIO (TOTAL/HDL) 3.87 0.0 - 5.0 [facility] Comment:(0.8 X AVERAGE) 08/23/2009 08/23/2009 7:0 7 PM EST Florencia Em MD LABORATORY Final Result Performing Organization Address City/State/[facility] Co de Phone Number [facility] [address] [place] [address] documented in this encounter Visit Diagnoses Diagnosis Other and unspecified hyperlipidemia Hypertension Unspecified essential hypertension Other and unspecified hyperlipidemia Hypertension Unspecified essential hypertension documented in this encounter Additional Health Concerns Infection Onset Date Last Indicated Resolved Time COVID-19 Confirmed 04/26/2021 04/26/2021 2 8:12 PM EST COVID-19 Confirmed 08/13/2022 08/13/2022 documented as of this encounter Care Teams Quality Improvement Consultant Relationship Specialty Start Date End Date Florencia Em MD [address] [place] [address] PCP - General 03/04/07 05/11/21 Florencia Em MD [address] [place] [address] PCP - General Internal Medicine 05/27/21 documented as of this encounter
--- OUTSIDE RECORDS SUMMARY | 2024-09-13 19:59 | XMS_ITS | Encounter Summary ---
Author Organization [facility] Address [address] [place] [address] Care Team Providers Care Motel Clerk Name Role Phone Florencia Em MD Primary Care Provider [phone] Florencia Em MD Primary Care Provider [phone] Encounter Details Date Type Department Care Team (Late st Contact Info) Description 03/06/2011 Orders Only [facility] [address] [place] [phone] Florencia Em MD [address] [place], [place] [phone] Social History Tobacco Use Types Packs/Day Years [...] AM EDT Office Visit [facility] [address] [place] [phone] Angeli Cuevas NP [address] [place] [address] Abdominal discomfort 06/26/2025 2:00 PM EST Radiology [facility]. Mammography [address] [place] [phone] documented as of this encounter Results * Due to [place] state law, this organization might not be sharing negative HIV tests. * HEPATIC FUNCTION PANEL (03/09/2011 9:30 AM EDT) Protein Total (Serum) 7.7 6.2 - 8.3 g/dL [facility] Comment:{PROTEIN, TOTAL {[id number]) Albumin 4.3 3.6 - 5.1 g/dL [facility] Comment:{ALBUMIN {[id number]) Globulin 3.4 2.2 - 3.9 g/dL (calc) [facility] Comment:{GLOBULIN {[id number]) Albumin/Globulin 1.3 1.0 - 2.1 (calc) [facility] Comment:{ALBUMIN/GLOBULIN RA ROBBIE {[id number]) Bilirubin Total 0.3 0.2 - 1.2 mg/dL [facility] Comment:{BILIRUBIN, TOTAL {[id number]) Bilirubin Direct 0.1 < OR = 0.2 mg/dL [facility] Comment:{BILIRUBIN, DIRECT { [id number]) Bilirubin Indirect 0.2 0.2 - 1.2 mg/dL (calc) [facility] Comment:{BILIRUBIN, INDIRECT {[id number]) Alkaline phosphatase 77 33 - 115 U/L [facility] Comment:{ALKALINE PHOSPHATAS E {[id number]) AST (SGOT) 26 10 - 30 U/L [facility] Comment:{AST {[id number]) ALT (SGPT) 31 6 - 40 U/L [facility] Comment:{ALT {[id number]) 03/09/2011 9:30 AM EDT 03/09/2011 5:30 PM EDT Narrative Resulting Agency Comment [id number] Florencia Em MD LABORATORY Final Result [facility] [address] [place] [address] * THYROID STIMULATING HORMONE (TSH) WITH FREE T4 REFLEX, SERUM (03/09/2011 9:30 AM EDT) TSH 3.04 mIU/L [facility] Comment: {TSH, 3RD GENERATION W/REFLEX TO FT4 {[id number]) Reference Range > or = 20 Years ??0.40-4.50 ? Ranges First trimester ?0.20-4.70 Second trimester ?? 0.30-4.10 Third trimester ?0.40-2.70 03/09/2011 9:30 AM EDT 03/09/2011 5:30 PM EDT Narrative Resulting Agency Comment [id number] Florencia Em MD LABORATORY Final Result [facility] [address] [place] [address] * CBC INCLUDES DIFFERENTIAL AND PLATELET COUNT (03/09/2011 9:30 AM EDT) Pathologist [facility] WBC 7.6 3.8 - 10.8 Thousand/u L [facility] Comment:{WHITE BLOOD CELL CO UNT {[id number]) RBC 4.10 3.80 - 5.10 Million/uL [facility] Comment:{RED BLOOD CELL COUN T {[id number]) Hemoglobin 12.5 11.7 - 15.5 g/dL [facility] Comment:{HEMOGLOBIN {[id number]) Hematocrit 36.8 35.0 - 45.0 % [facility] Comment:{HEMATOCRIT {[id number]) MCV 89.7 80.0 - 100.0 fL [facility] Comment:{MCV {[id number]) MCH 30.4 27.0 - 33.0 pg [facility] Comment:{MCH {[id number]) MCHC 33.9 32.0 - 36.0 g/dL [facility] Comment:{MCHC {[id number]) RDW 12.5 11.0 - 15.0 % [facility] Comment:{RDW {[id number]) PLT 322 140 - 400 Thousand/u L [facility] Comment:{PLATELET COUNT {[id number]) MPV 8.6 7.5 - 11.5 fL [facility] Comment:{MPV {[id number]) Neutrophils # 4150 1500 - 7800 cells/uL [facility] Comment:{ABSOLUTE NEUTROPHIL S {[id number]) Lymphocytes # 2668 850 - 3900 cells/uL [facility] Comment:{ABSOLUTE LYMPHOCYTE S {[id number]) Monocytes # 456 200 - 950 cells/uL [facility] Comment:{ABSOLUTE MONOCYTES {[id number]) Eosinophils # 266 15 - 500 cells/uL [facility] Comment:{ABSOLUTE EOSINOPHIL S {[id number]) Basophils # 61 0 - 200 cells/uL [facility] Comment:{ABSOLUTE BASOPHILS {[id number]) Neutrophils % 54.6 % [facility] Comment:{NEUTROPHILS {[id number]) Lymphocytes % 35.1 % [facility] Comment:{LYMPHOCYTES {[id number]) Monocytes % 6.0 % [facility] Comment:{MONOCYTES {[id number]) Eosinophils % 3.5 % [facility] Comment:{EOSINOPHILS {[id number]) Basophils % 0.8 % [facility] Comment:{BASOPHILS {[id number]) 03/09/2011 9:30 AM EDT 03/09/2011 5:30 PM EDT Narrative Resulting Agency Comment [id number] Florencia Em MD LAB SAME DAY RESULT Final Result [facility] [address] [place] [address] * BASIC METABOLIC PANEL WITH (GFR) (03/09/2011 9:30 AM EDT) Glucose 89 65 - 99 mg/dL [facility] Comment: {GLUCOSE {[id number]) ? Fasting reference interval Urea Nitrogen Blood (BUN) 9 7 - 25 mg/dL [facility] Comment:{UREA NITROGEN (BUN) {[id number]) Creatinine 0.65 0.57 - 1.03 mg/dL [facility] Comment:{CREATININE {[id number]) GFR 120 > OR = 60 mL/min/1. 73m2 [facility] Comment:{eGFR NON-AFR. AMERI CAN {[id number]) GFR () 139 > OR = 60 mL/min/1. 73m2 [facility] Comment:{eGFR AMERIC AN {[id number]) BUN/Creatinine Ratio NOT APPLICABLE (calc) [facility] Comment:{BUN/CREATININE RATI O {[id number]) Sodium 136 135 - 146 mmol/L [facility] Comment:{SODIUM {[id number]) Potassium 4.5 3.5 - 5.3 mmol/L [facility] Comment:{POTASSIUM {[id number]) Chloride 100 98 - 110 mmol/L [facility] Comment:{CHLORIDE {[id number]) Carbon dioxide 25 21 - 33 mmol/L [facility] Comment:{CARBON DIOXIDE {[id number]) Calcium 9.9 8.6 - 10.2 mg/dL [facility] Comment:{CALCIUM {[id number]) 03/09/2011 9:30 AM EDT 03/09/2011 5:30 PM EDT Narrative [facility] - 03/09/2011 8:55 PM EDT Please note that this estimated [...] needs for GFR calculation. Resulting Agency Comment [id number] Florencia Em MD LABORATORY Final Result [facility] [address] [place] [address] * (ABNORMAL) LIPID PANEL WITH REFLEX TO DIRECT LDL (03/09/2011 9:30 AM EDT) Cholesterol 158 125 - 200 mg/dL [facility] Comment:{CHOLESTEROL, TOTAL {[id number]) HDL Cholesterol 42(L) > OR = 46 mg/dL [facility] Comment:{HDL CHOLESTEROL {[id number]) Triglyceride 84 <150 mg/dL [facility] Comment:{TRIGLYCERIDES {[id number]) LDL Cholesterol 99 <130 mg/dL (calc) [facility] Comment: {LDL-CHOLESTEROL {[id number]) Desirable range <100 mg/dL for patients with CHD or diabetes and <70 mg/dL for diabetic patients with known heart disease. CHOL/HDL Ratio 3.8 < OR = 5.0 (calc) [facility] Comment:{CHOL/HDLC RATIO {[id number]) 03/09/2011 9:30 AM EDT 03/09/2011 5:30 PM EDT Narrative Resulting Agency Comment [id number] Florencia Em MD LABORATORY Final Result Performing Organization Address City/State/[facility] de Phone Number [facility] [address] [place] [address] documented in this encounter Visit Diagnoses Diagnosis Routine general medical examination at a health care facility- Primary Routine general medical examination at a health care facility documented in this encounter Additional Health Concerns Infection Onset Date Last Indicated Resolved Time COVID-19 Confirmed 04/26/2021 04/26/2021 8:12 PM EST COVID-19 Confirmed 08/13/2022 08/13/2022 documented as of this encounter Care Teams Motel Clerk Relationship Specialty Start Date End Date Florencia Em MD [address] [place] [address] PCP - General 03/04/07 05/11/21 Florencia Em MD [address] [place] [address] PCP - General Internal Medicine 05/27/21 documented as of this encounter
--- OUTSIDE RECORDS SUMMARY | 2024-09-13 19:59 | XMS_ITS | Encounter Summary ---
Author Organization [facility] Address [address] [place] [address] Care Team Providers Care Garment Turner Name Role Phone Florencia Em MD Primary Care Provider [phone] Florencia Em MD Primary Care Provider [phone] Encounter Details Date Type Department Care Team (Late st Contact Info) Description 01/09/2015 Orders Only [facility] [address] [place] [address] Florencia Em MD [address] [place], [place] [phone] Social History Tobacco Use Types Packs/Day Years [...] AM EDT Office Visit [facility] [address] [place] [phone] Angeli Cuevas NP [address] [place] [address] Abdominal discomfort 06/26/2025 2:00 PM EST Radiology [facility] Mammography [address] [place] [address] documented as of this encounter Visit Diagnoses Diagnosis Family history of colon cancer- Primary Family history of malignant neoplasm of gastrointestinal tract documented in this encounter Additional Health Concerns Infection Onset Date Last Indicated Resolved Time COVID-19 Confirmed 04/26/2021 04/26/2021 8:12 PM EST COVID-19 Confirmed 08/13/2022 08/13/2022 documented as of this encounter Care Teams Garment Turner Relationship Specialty Start Date End Date Florencia Em MD [address] [place] [address] PCP - General 03/04/07 05/11/21 Florencia Em MD [address] [place] [address] PCP - General Internal Medicine 05/27/21 documented as of this encounter
--- OUTSIDE RECORDS SUMMARY | 2024-09-13 19:59 | XMS_ITS | Encounter Summary ---
Author Organization [facility] Address [address] [place] [address] Care Team Providers Care Ways Operator Name Role Phone Florencia Em MD Primary Care Provider [phone] Encounter Details Date Type Department Care Team (Late st Contact Info) Description 09/06/[id number] [place] [address], Unknown Provider Social History Tobacco Use Types [...] as of this encounter ED Notes * Bhargav Aguilera - 09/07/2024 1:42 PM EST ED Provider Notes by Bharagv Aguilera MD at 09/06/2024 10:06 AM Author: Bhargav Aguilera MD Service: Emergency Medicine Author Type: Physician Filed: 09/07/2024 1:41 PM Date of Service: 09/06/2024 10:06 AM Status: Signed Tobacco Grader: Bhargav Aguilera MD (Physician) Related Notes: Original Note by HEBER Bateman (Physician Construction Administrative Assistant) filed at 09/06/2024 10:51 PM History HPI: Chief Complaint Patient presents with ??? Constipation HPI 44-year-old female, history of anxiety, depression, chronic abdominal pain, seen here on 09/04/2024 with lab work, symptomatic management presents to the emergency department for evaluation of generalized abdominal pain, constant over the past few months. Additionally reports of decreased bowel movements. Moving minimal stool over the past month. Denies any vomiting, chest pain, shortness of breath. Minimal dysuria, denies any hematuria, vaginal bleeding, vaginal discharge. Denies any sexual activity or concern for /sexual transmitted disease. No abdominal surgical history. Denies anysmoking, alcohol use, drug use. Patient History Past Medical History: Diagnosis Date [...] vagina penis prostate testes Review of Systems Review of Systems Constitutional: Negative for fever. Respiratory: Negative for shortness of breath. Cardiovascular: Negative for chest pain. Gastrointestinal: Positive for abdominal pain and nausea. Negative for diarrhea and vomiting. Genitourinary: Positive for dysuria. Negative for hematuria, vaginal bleeding and vaginal discharge. Musculoskeletal: Negative for arthralgias and myalgias. Skin: Negative for rash. Neurological: Negative for headaches. Physical Exam Physical Exam Vitals: 09/06/24 1409 09/06/24 1821 09/06/24 1832 09/06/24 2124 BP: 129/85 127/72 146/83 BP Location: Left arm Left arm Right arm Patient Position: Sitting Lying Lying Pulse: (!) 106 82 97 Resp: 18 (!) 10 14 18 Temp: 36.9 ??C (98.4 ??F) 36 ??C (96.8 ??F) 36.9 ??C (98.4 ??F) TempSrc: Oral Oral Oral SpO2: 99% 100% 98% Physical Exam Vitals and nursing note reviewed. Constitutional: General: She is not in acute distress. Appearance: Normal appearance. She is not ill-appearing. HENT: Head: Normocephalic and atraumatic. Right Ear: External ear normal. Left Ear: External ear normal. Nose: Nose normal. No congestion or rhinorrhea. Mouth/Throat: Mouth: Mucous membranes are moist. Pharynx: Oropharynx is clear. No oropharyngeal exudate or posterior oropharyngeal erythema. Eyes: Extraocular Movements: Extraocular movements intact. Conjunctiva/sclera: Conjunctivae normal. Pupils: Pupils are equal, round, and reactive to light. Cardiovascular: Rate and Rhythm: Normal rate and regular rhythm. Heart sounds: Normal heart sounds. No murmur heard. Pulmonary: Effort: Pulmonary effort is normal. No respiratory distress. Breath sounds: Normal breath sounds. Chest: Chest wall: No tenderness. Abdominal: General: Bowel sounds are normal. There is no distension. Palpations: Abdomen is soft. There is no mass. Tenderness: There is generalized abdominal tenderness. There is no right CVA tenderness, left CVA tenderness, guarding or rebound. Musculoskeletal: General: No tenderness or deformity. Normal range of motion. Cervical back: Normal range of motion. Lymphadenopathy: Cervical: No cervical adenopathy. Skin: General: Skin is warm and dry. Capillary Refill: Capillary refill takes less than 2 seconds. Findings: No erythema or rash. Neurological: Mental Status: She is alert and oriented to person, place, and time. Mental status is at baseline. Cranial Nerves: No cranial nerve deficit. Sensory: No sensory deficit. Motor: No weakness or abnormal muscle tone. Coordination: Coordination normal. Psychiatric: Mood and Affect: Mood normal. Behavior: Behavior normal. Thought Content: Thought content normal. Judgment: Judgment normal. Labs Reviewed COMPREHENSIVE METABOLIC PANEL - Abnormal Result Value NA 138 K 4.0 Cl 100 CO2 22 Anion Gap 16 (*) Glucose 99 Creatinine 0.85 Calcium 9.3 Total Protein 7.5 Albumin 3.8 Bilirubin, Total 0.4 Alkaline Phosphatase 73 AST 33 ALT 13 BUN 4 (*) eGFR 87 Globulin, Total 3.7 A/G Ratio 1.0 (*) UA/CULTURE REFLEX - Abnormal Color, Urine Anayeli (*) Clarity, Urine Slightly Cloudy (*) Specific [place], Urine 1.030 pH, Urine 5.0 Protein, Urine 3+ (*) Glucose, Urine Negative Ketones, Urine 1+ (*) Bilirubin, Urine Positive (*) Blood, Urine Negative Nitrite, Urine Negative Urobilinogen, Urine Positive (*) Leukocyte Esterase, Urine Negative WBC, Urine 6 (*) RBC, Urine 1 Hyaline Casts, Urine >180 (*) Squamous Epithelial Cells, Urine 1 Bacteria, Urine Rare (*) Mucus, Urine Many LIPASE - Normal Lipase 20 HCG, QUALITATIVE, SERUM - Normal HCG Qualitative, Serum Negative CBC AUTO DIFFERENTIAL WBC 7.1 RBC 4.50 Hemoglobin 12.8 Hematocrit 38.8 MCV 86.2 MCH 28.4 MCHC 33.0 RDW 14.0 Platelets 387 MPV 10.0 Neutrophil % 58.7 Immature Grans % 0.3 Lymphocyte % 31.5 Monocyte % 7.8 Eosinophil % 1.0 Basophil % 0.7 Neutrophil # 4.14 Immature Grans # <0.03 Lymphocyte # 2.20 Monocyte # 0.60 Eosinophil # 0.10 Basophil # 0.10 nRBC % 0.0 nRBC # <0.01 URINALYSIS W/REFLEX TO MICROSCOPIC & CULTURE Narrative: The following orders were created for panel order Urinalysis W/Reflex to Microscopic & Culture. Procedure Abnormality Status --------- ------ Urinalysis W/Reflex to M...[[id number]] Abnormal Final result Johnson Top, Urine[[id number]] Final result Please view results for these tests on the individual orders. JOHNSON TOP, URN Extra Tube Hold for add-ons. CT Abd Pelvis W Contrast Final Result No acute abnormality in the abdomen and pelvis. If this radiology report contains a blank impression section, it is an incomplete radiology report.Please contact the interpreting radiologist or applicable radiology division as soon as possible toobtain the completed interpretation. Workstation ID: [id number] Up-to-date CT equipment and radiation dose reduction techniques were employed. CTDIvol: 24.5 mGy. DLP: 1131 mGy-cm. Medical Decision Making and ED Course Assessment and Plan: 44-year-old female, past medical history of anxiety, depression, chronic abdominal pain, seen in the emergency department on 09/04/2024 presents to the emergency department for evaluation of abdominal pain, decreased bowel movements. Constant generalized abdominal pain over the past several months. No specific aggravating/alleviating factors. Decreased bowel movements over thepast month. Denies any vomiting though experiencing minimal nausea. Denies any chest pain, shortness of breath. Minimal dysuria, though denies any hematuria, vaginal bleeding, vaginal discharge. Denies any sexual activity or concern for . No pertinent social history. No abdominal surgical history. Exam above. Differential includes GERD/gastritis, PUD. Lower suspicion for hepato-/biliary etiology or pancreatitis. Generalized abdominal tenderness, lower suspicion for appendicitis or diverticulitis. Minimal dysuria, plan for UA to evaluate for cystitis. No fevers or CVA tenderness to suggest pyelonephritis. Lower suspicion for nephrolithiasis given course of symptoms. Lower suspicion for bowel obstruction. Plan for labs, symptomatic management, CT imaging. Will continue to monitor. Patient CT is negative unclear etiology of symptoms plan is for her to follow-up with GI and get a colonoscopy overall may benefit from ongoing bowel regimen but not clearly increased stool burden onCT discussed risks and benefits of treating for possible UTI she would like to be treated pending culture plan patient stable for discharge emergency process ruled out by screening labs and CT discharge with monitoring and follow-up Patient/family had discussion of warning signs reviewed follow-up plan of care. Pt will return to the ED any acute change or concern. Advised pt/family to follow-up with primary care or specialist asinstructed please excuse any omissions grammatical errors or other syntax errors due to voice recognition software Amount and/or Complexity of Data Reviewed: Type of data reviewed: external lab data reviewed Details: Old records reviewed and prior labs Current encounter data review: The following tests from this encounter were independently reviewed:CT scan, Imaging interpretation: CT scan no acute Maloprim [place] UA slightly abnormal some hyaline casts ketones few WBCs patient would like to be treated ED Course as of 09/06/242248Sep 06, [address] negative. Urine here with greater than 180 hyaline cast, 1+ ketone, bilirubin. No significant abnormalities of CBC or BMP. Will give liter of fluid. [DJ] 2241 Received a liter of fluid. Tolerating p.o. without difficulty. Given first dose of Keflex. Patient did report of minimal dysuria, UA does reveal 6 WBC. Will send prescription. Advised continued symptomatic management at home, bowel regimen. Will send ambulatory referral to gastroenterology, aswell as plan for primary care provider follow-up. Return precautions given. Patient expresses understanding and agrees with plan. [DJ] ED Course User Index [DJ] HEBER Bateman Attending to Midlevel/DEV - I examined the patient and discussed the case with the SALES SPECIAL AGENT/PA and agree with the findings and plan as documented Heather Wright : 1980 CSN: [id number] Midlevel/DEV to Attending - Chart by SALES SPECIAL AGENT/PA. Attending Bhargav Aguilera MD, was actively involved. Heather Wright : 1980 CSN: [id number] HEBER Bateman 09/06/24 2251 Bhargav Aguilera MD 09/07/24 1341 documented in this encounter Plan of Treatment Upcoming Encounters Date Type Department Care Team (Late st Contact Info) Description 12/11/2024 10:00 AM EDT Office Visit [facility] [address] [place] [address] Angeli Cuevas NP [address] [place] [address] Abdominal discomfort 06/26/2025 2:00 PM EST Radiology [facility] [address] [place] [phone] documented as of this encounter Visit Diagnoses Not on filedocumented in this encounter Additional Health Concerns Infection Onset Date Last Indicated Resolved Time COVID-19 Confirmed 08/13/2022 08/13/2022 documented as of this encounter Care Teams Ways Operator Relationship Specialty Start Date End Date Florencia Em MD [address] [place] [address] PCP - General Internal Medicine 05/27/21 documented as of this encounter
--- OUTSIDE RECORDS SUMMARY | 2024-09-13 19:59 | XMS_ITS | Encounter Summary ---
Author Organization [facility] Address [address] [place] [address] Care Team Providers Care Electrical Test Technician Name Role Phone Florencia Em MD Primary Care Provider [phone] Florencia Em MD Primary Care Provider [phone] Encounter Details Date Type Department Care Team (Late st Contact Info) Description 02/07/2020 Orders Only [facility] [address] [place] [address] Florencia Em MD [address] [place], [place] [phone] Social History Tobacco Use Types Packs/Day Years [...] as of this encounter Progress Notes * Vi Evans RN - 02/07/2020 4:32 PM EDT The patients lab results are at an abnormal level by the protocol guidelines. Please review and advise. * Florencia Em MD - 02/07/2020 4:32 PM EDT msg damon, repeat cbc2 weeks, a1c in 6 months * Florencia Em MD - 02/07/2020 4:32 PM EDT msg fontana tto come for cbc again documented in this encounter Plan of Treatment Upcoming Encounters Date Type Department Care Team (Late st Contact Info) Description 12/11/2024 10:00 AM EDT Office Visit [facility] [address] [place] [phone] Angeli Cuevas, SACHIN [address] [place] [address] Abdominal discomfort 06/26/2025 2:00 PM EST Radiology [facility]. M[facility]ography [address] [place] [address] documented as of this encounter Procedures * Due to [place] state law, this organization might not be sharing negative HIV tests. Procedure Name Priority Date/Time Associated Diagnosis Comments CBC INCLUDES DIFFERENTIAL AND PLATELET COUNT Routine 02/07/2020 4:32 PM EDT Screening for condition VENIPUNCTURE Routine 02/07/2020 4:32 PM EDT Screening for condition documented in this encounter Results * Due to [facility] law, this organization might not be sharing negative HIV tests. * (ABNORMAL) CBC INCLUDES DIFFERENTIAL AND PLATELET COUNT (05/03/2020 3:40 PM EDT) WBC 8.6 3.8 - 10.8 Thousand/u L [facility] RBC 4.29 3.80 - 5.10 Million/uL [facility] Hemoglobin 12.3 11.7 - 15.5 g/dL [facility] Hematocrit 36.7 35.0 - 45.0 % [facility] MCV 85.5 80.0 - 100.0 fL [facility] MCH 28.7 27.0 - 33.0 pg [facility] MCHC 33.5 32.0 - 36.0 g/dL [facility] RDW 12.5 11.0 - 15.0 % [facility] PLT 401(H) 140 - 400 Thousand/u L [facility] MPV 10.6 7.5 - 12.5 fL [facility] Neutrophils # 4524 1500 - 7800 cells/uL [facility] Lymphocytes # 3010 850 - 3900 cells/uL [facility] Monocytes # 688 200 - 950 cells/uL [facility] Eosinophils # 310 15 - 500 cells/uL [facility] Basophils # 69 0 - 200 cells/uL [facility] Neutrophils % 52.6 % [facility] Lymphocytes % 35.0 % [facility] Monocytes % 8.0 % [facility] Eosinophils % 3.6 % [facility] Basophils % 0.8 % [facility] 05/03/2020 3:40 PM EDT 05/04/2020 12:41 AM EDT Narrative Resulting Agency Comment [id number] us Florencia Em MD LAB SAME DAY RESULT Final Result Performing Organization Address City/State/[facility] Co de Phone Number [facility] [address] [place] [address] * (ABNORMAL) CBC INCLUDES DIFFERENTIAL AND PLATELET [...] 12:49 AM EDT Narrative Resulting Agency Comment [id number] Florencia Em MD LAB SAME DAY RESULT Final Result Performing Organization Address [facility] de Phone Number [facility] [address] [place] [address] * (ABNORMAL) HEMOGLOBIN A1C (02/07/2020 4:32 PM [...] 12:49 AM EDT Narrative Resulting Agency Comment [id number] Florencia Em MD LABORATORY Final Result Performing Organization Address [facility] de Phone Number [facility] [address] [place] [address] documented in this encounter Visit Diagnoses Diagnosis Screening for condition Screening for unspecified condition documented in this encounter Additional Health Concerns Infection Onset Date Last Indicated Resolved Time COVID-19 Confirmed 04/26/2021 04/26/2021 2 8:12 PM EST COVID-19 Confirmed 08/13/2022 08/13/2022 documented as of this encounter Care Teams Electrical Test Technician Relationship Specialty Start Date End Date Florencia Em MD [address] [place] [address] PCP - General 03/04/07 05/11/21 Florencia Em MD [address] [place] [id number] PCP - General Internal Medicine 05/27/21 documented as of this encounter
--- OUTSIDE RECORDS SUMMARY | 2024-09-13 19:59 | XMS_ITS | Encounter Summary ---
Author Organization [facility] Address [address] [place] [address] Care Team Providers Care Customer Support Advisor Name Role Phone Florencia Em MD Primary Care Provider [phone] Encounter Details Date Type Department Care Team (Late st Contact Info) Description 02/03/2022 Orders Only [facility] [address] [place] [address] Florencia Em MD [address] [place] [address] Social History Tobacco Use Types Packs/Day Years Used Date Smoking Tobacco: Never Smokeless Tobacco: Never Alcohol Use Standard Drinks/Week Comments No 0 (1 standard drink = 0.6 oz pur e alcohol) PHQ-2 Answer Date Recorded PHQ-2 Score 6 01/12/2022 Comments No Sex and Gender Information Value Date Recorded Sex Assigned at Not on file Legal Sex Female 3:59 AM EDT Gender Identity Not on file Sexual Orientation Not on file documented as of this encounter Miscellaneous Notes * Result Encounter Note - Vi Evans RN - 02/03/2022 10:08 AM EDT 2 labs pending * Result Encounter Note - Florencia Em MD - 02/03/2022 10:08 AM EDT Emails ent documented in this encounter Plan of Treatment Upcoming Encounters Date Type Department Care Team (Late st Contact Info) Description 12/11/2024 10:00 AM EDT Office Visit [facility] [address] [place] [phone] Angeli Cuevas, SACHIN [address] [place] [address] Abdominal discomfort 06/26/2025 2:00 PM EST Radiology [facility] [address] [place] [address] documented as of this encounter Procedures * Due to [place] [employer] law, this organization might not be sharing negative HIV tests. Procedure Name Priority Date/Time Associated Diagnosis Comments C-REACTIVE PROTEIN (CRP) - INFLAMMATION Routine 02/03/2022 10:08 AM EDT Generalized abdominal pain VENIPUNCTURE Routine 02/03/2022 10:08 AM EDT Generalized abdominal pain CBC INCLUDES DIFFERENTIAL AND PLATELET COUNT Routine 02/03/2022 10:08 AM EDT Generalized abdominal pain HCG, TOTAL, QL Routine 02/03/2022 10:08 AM EDT Generalized abdominal pain LIPASE, SERUM Routine 02/03/2022 10:08 AM EDT Generalized abdominal pain HEPATIC FUNCTION PANEL (ALT,AST,ALK PH,BILI'S,TP,ALB) Routine 02/03/2022 10:08 AM EDT Generalized abdominal pain BASIC METABOLIC PANEL WITH (GFR) Routine 02/03/2022 10:08 AM EDT Generalized abdominal pain documented in this encounter Results * Due to [place] [employer] law, this organization might not be sharing negative HIV tests. * C-REACTIVE PROTEIN (CRP) - INFLAMMATION (02/03/2022 10:08 AM EDT) C reactive protein 5.2 <8.0 mg/L [facility] 02/03/2022 10:0 8 AM EDT 02/04/2022 3:02 AM EDT Narrative Resulting Agency Comment [id number] Florencia Em MD LABORATORY Final Result Performing Organization Address [facility] de Phone Number [facility] [address] [place] [address] * HEPATIC FUNCTION PANEL (ALT,AST,ALK PH,BILI'S,TP,ALB) (02/03/2022 10:08 AM EDT) [facility] Protein Total (Serum) 7.0 6.1 - 8.1 g/dL [facility] Albumin 4.4 3.6 - 5.1 g/dL [facility] Globulin 2.6 1.9 - 3.7 g/dL (calc) [facility] Albumin/Globulin 1.7 1.0 - 2.5 (calc) [facility] Bilirubin Total 0.3 0.2 - 1.2 mg/dL [facility] Bilirubin Direct 0.1 < OR = 0.2 mg/dL [facility] Bilirubin Indirect 0.2 0.2 - 1.2 mg/dL (calc) [facility] Alkaline phosphatase 72 31 - 125 U/L [facility] AST (SGOT) 15 10 - 30 U/L [facility] ALT (SGPT) 22 6 - 29 U/L [facility] 02/03/2022 10:0 8 AM EDT 02/04/2022 3:02 AM EDT Narrative Resulting Agency Comment [id number] Florencia Em MD LABORATORY Final Result Performing Organization Address [facility] Co de Phone Number [facility] [address] [place] [address] * CBC INCLUDES DIFFERENTIAL AND PLATELET COUNT (02/03/2022 10:08 AM EDT) [facility] WBC 5.7 3.8 - 10.8 Thousand/u L [facility] RBC 4.18 3.80 - 5.10 Million/uL [facility] Hemoglobin 12.4 11.7 - 15.5 g/dL [facility] Hematocrit 37.5 35.0 - 45.0 % [facility] MCV 89.7 80.0 - 100.0 fL [facility] MCH 29.7 27.0 - 33.0 pg [facility] MCHC 33.1 32.0 - 36.0 g/dL [facility] RDW 11.7 11.0 - 15.0 % [facility] PLT 363 140 - 400 Thousand/u L [facility] MPV 11.3 7.5 - 12.5 fL [facility] Neutrophils # 3534 1500 - 7800 cells/uL [facility] Lymphocytes # 1687 850 - 3900 cells/uL [facility] Monocytes # 319 200 - 950 cells/uL [facility] Eosinophils # 120 15 - 500 cells/uL [facility] Basophils # 40 0 - 200 cells/uL [facility] Neutrophils % 62 % [facility] Lymphocytes % 29.6 % [facility] Monocytes % 5.6 % [facility] Eosinophils % 2.1 % [facility] Basophils % 0.7 % [facility] 02/03/2022 10:0 8 AM EDT 02/04/2022 3:02 AM EDT Narrative Resulting Agency Comment [id number] Florencia Em MD LAB SAME DAY RESULT Final Result [facility] [address] [place] [address] * BASIC METABOLIC PANEL WITH (GFR) (02/03/2022 10:08 AM EDT) Glucose 82 65 - 99 mg/dL [facility] Comment:Fasting reference in terval Urea Nitrogen Blood (BUN) 9 7 - 25 mg/dL [facility] Creatinine 0.79 0.50 - 0.99 mg/dL [facility] EGFR 97 > OR = 60 mL/min/1. 73m2 [facility] Comment: The eGFR is based on the CKD-EPI 2020 equation. To calculate the new eGFR from a previous Creatinine or Cystatin C result, go to https://www.kidney.org/professionals/ kdoqi/gfr%5Fcalculator BUN/Creatinine Ratio NOT APPLICABLE 6 (calc) [facility] Sodium 137 135 - 146 mmol/L [facility] Potassium 4.3 3.5 - 5.3 mmol/L [facility] Chloride 100 98 - 110 mmol/L [facility] Carbon dioxide 29 20 - 32 mmol/L [facility] Calcium 9.6 8.6 - 10.2 mg/dL [facility] 02/03/2022 10:0 8 AM EDT 02/04/2022 3:02 AM EDT Narrative [facility] - 02/04/2022 6:44 AM EDT Please note that this estimated [...] needs for GFR calculation. Resulting Agency Comment [id number] Florencia Em MD LABORATORY Final Result Performing Organization Address [facility] Co de Phone Number [facility] [address] [place] [address] * LIPASE, SERUM (02/03/2022 10:08 AM EDT) Lipase 25 7 - 60 U/L [facility] 02/03/2022 10:0 8 AM EDT 02/04/2022 3:02 AM EDT Narrative Resulting Agency Comment [id number] Florencia Em MD LABORATORY Final Result Performing Organization Address [facility] Phone Number [facility] [address] [place] [address] * HCG, TOTAL, QL (02/03/2022 10:08 AM EDT) HCG, Qualitative (Screen) NEGATIVE [facility] Comment: Reference Range Non-: Negative : ? Positive 02/03/2022 10:0 8 AM EDT 02/04/2022 3:02 AM EDT Narrative Resulting Agency Comment [id number] Florencia Em MD LAB SAME DAY RESULT Final Result Performing Organization Address [facility] de Phone Number [facility] [address] [place] [address] * ERYTHROCYTE SEDIMENTATION RATE (ESR), WE[place]GR[place] (02/03/2022 10:08 AM EDT) Sedimentation Rate [place] (ESR) 19 < OR = 20 mm/h [facility] 02/03/2022 10:0 8 AM EDT 02/04/2022 3:02 AM EDT Narrative Resulting Agency Comment [id number] Florencia Em MD LAB SAME DAY RESULT Final Result [facility] [address] [place] [address] documented in this encounter Visit Diagnoses Diagnosis Generalized abdominal pain Abdominal pain, generalized documented in this encounter Additional Health Concerns Infection Onset Date Last Indicated Resolved Time COVID-19 Confirmed 08/13/2022 08/13/2022 documented as of this encounter Care Teams Customer Support Advisor Relationship Specialty Start Date End Date Florencia Em MD [address] [place] [address] PCP - General Internal Medicine 05/27/21 documented as of this encounter
--- OUTSIDE RECORDS SUMMARY | 2024-09-13 19:59 | XMS_ITS | Encounter Summary ---
Author Organization [facility] Address [address] [place] [address] Care Team Providers Care Permastone Installer Name Role Phone Florencia Em MD Primary Care Provider [phone] Encounter Details Date Type Department Care Team (Late Contact Info) Description 02/19/2022 Orders Only [facility] [address] [place] [phone] Supa Lynn PA Social History Tobacco Use Types Packs/Day Years [...] Description 12/11/2024 10:00 AM EDT Office Visit [facility] 4 [place] [phone] Angeli Cuevas NP [address] [place], [place] [phone] Abdominal discomfort 06/26/2025 2:00 PM EST Radiology [facility]. Mammography 5 [place] [phone] Scheduled Orders Name Type Priority Associated Diagnoses Orde r Schedule PANCREATIC ELASTASE-1 Lab Routine Functional gastrointestinal disorder Diarrhea, unspecified type Expected: 02/19/2022 (Approximate), Expires: 02/19/2023 documented as of this encounter Visit Diagnoses Diagnosis Functional gastrointestinal disorder Unspecified functional disorder of stomach Diarrhea, unspecified type documented in this encounter Additional Health Concerns Infection Onset Date Last Indicated Resolved Time COVID-19 Confirmed 08/13/2022 08/13/2022 documented as of this encounter Care Teams Permastone Installer Relationship Specialty Start Date End Date Florencia Em MD [address] [place] [address] PCP - General Internal Medicine 05/27/21 documented as of this encounter
--- OUTSIDE RECORDS SUMMARY | 2024-09-13 19:59 | XMS_ITS | Encounter Summary ---
Author Organization [facility] Address [address] [place] [address] Care Team Providers Care [facility] Name Role Phone Florencia Em MD Primary Care Provider [phone] Reason for Visit * Reason Comments Prior Authorization Issue Encounter Details Date Type Department Care Team ([facility] st Contact Info) Description 10/16/2021 Telephone [facility] [address] [place], [place] [phone] Jose Maldonado NP [facility] [address] [address] Prior Authorization Issue Social History Tobacco Use Types Packs/Day Years [...] encounter Miscellaneous Notes * Telephone Encounter - Jose Maldonado - 10/16/2021 5:31 PM EDT Patient's office visit note today is complete. * Telephone Encounter - Mick Warren - 10/16/2021 3:30 PM EDT You ordered a CT ABDOMEN & PELVIS for this patient who has a health plan that requires an authorization. We are currently unable to obtain the approval without the most recent visit notes dictated in EPIC. Please update your notes and notify us when they are completed, so that we can process the request. Thank you Benefit Coordinator Ext. [phone] documented in this encounter Plan of Treatment Upcoming Encounters Date Type Department Care Team (Late st Contact Info) Description 12/11/2024 10:00 AM EDT Office Visit [facility] 4 [place] [address] Angeli Cuevas NP 4 [place] [address] Abdominal discomfort 06/26/2025 2:00 PM EST Radiology [facility]. Mammography 5 [place] [address] documented as of this encounter Visit Diagnoses Not on filedocumented in this encounter Additional Health Concerns Infection Onset Date Last Indicated Resolved Time COVID-19 Confirmed 08/13/2022 08/13/2022 documented as of this encounter Care Teams [facility] Relationship Specialty Start Date End Date Florencia Em MD [address] [place] [address] PCP - General Internal Medicine 05/27/21 documented as of this encounter
--- OUTSIDE RECORDS SUMMARY | 2024-09-13 19:59 | XMS_ITS | Encounter Summary ---
Author Organization [facility] Address [address] [place] [address] Care Team Providers Care Collaborative Physician Name Role Phone Florencia Em MD Primary Care Provider [phone] Encounter Details Date Type Department Care Team ([facility] st Contact Info) Description 10/17/2021 Orders Only [facility] [address] [place] [address] Jose Maldonado NP [facility] [address] [address] Social History Tobacco Use Types Packs/Day Years [...] Result Encounter Note - Margarita Forbes - 10/17/2021 11:19 AM EDT Please review and advise patients last A1C 09/22/20 5.7 * Result Encounter Note - Jose Maldonado - 10/17/2021 11:19 AM EDT Patient has thrombocytosis, would refer her over to hematology for further evaluation. CMP is overall stable, glucose is elevated, unclear if this was a fasting sample or not. Most recent hemoglobin A1c is 5.7 which indicates prediabetes. Needs to exercise, diet, lose weight to help prevent the onset of diabetes. Lab Results Component Value Date A1C 5.7 (H) 09/17/2020 Amylase and lipase are stable. TSH is within range. She was seen for abdominal pain and pending CT abdomen and pelvis, and also colonoscopy and endoscopy. documented in this encounter Plan of Treatment Upcoming Encounters Date Type Department Care Team (Late st Contact Info) Description 12/11/2024 10:00 AM EDT Office Visit [facility] 4 [place] [address] Angeli Cuevas NP [address] [place] [address] Abdominal discomfort 06/26/2025 2:00 PM EST Radiology [facility] Mammography [address] [place] [address] documented as of this encounter Procedures * Due to [place] [employer] law, this organization might not be sharing negative HIV tests. Procedure Name Priority Date/Time Associated Diagnosis Comments CBC INCLUDES DIFFERENTIAL AND PLATELET COUNT Routine 10/17/2021 11:19 AM EDT Generalized abdominal pain THYROID STIMULATING HORMONE (TSH) WITH FREE T4 REFLEX, SERUM Routine 10/17/2021 11:19 AM EDT Generalized abdominal pain LIPASE, SERUM Routine 10/17/2021 11:19 AM EDT Generalized abdominal pain AMYLASE, SERUM Routine 10/17/2021 11:19 AM EDT Generalized abdominal pain VENIPUNCTURE Routine 10/17/2021 11:19 AM EDT Generalized abdominal pain documented in this encounter Results * Due to [place] [employer] law, this organization might not be sharing negative HIV tests. * LIPASE, SERUM (10/17/2021 11:19 AM EDT) Lipase 27 7 - 60 U/L [facility] 10/17/2021 11:1 9 AM EDT 10/18/2021 12:27 AM EDT Narrative Resulting Agency Comment [id number] Jose Maldonado NP LABORATORY Final Resul t Performing Organization Address [facility] de Phone Number [facility] [address] [place] [address] * AMYLASE, SERUM (10/17/2021 11:19 AM EDT) Amylase 26 21 - 101 U/L [facility] 10/17/2021 11:1 9 AM EDT 10/18/2021 12:27 AM EDT Narrative Resulting Agency Comment [id number] Jose Maldonado NP LAB SAME DAY RESULT Final R esult Performing Organization Address [facility] de Phone Number [facility] [address] [place] [address] * THYROID STIMULATING HORMONE (TSH) WITH FREE T4 REFLEX, SERUM (10/17/2021 11:19 AM EDT) TSH 0.76 mIU/L [facility] Comment: ?Reference Range ?> or = 20 Years ??0.40-4.50 ? Ranges ?First trimester ?0.26-2.66 ?Second trimester ?? 0.55-2.73 ?Third trimester ?0.43-2.91 10/17/2021 11:1 9 AM EDT 10/18/2021 12:27 AM EDT Narrative Resulting Agency Comment [id number] Jose Maldonado NP LABORATORY Final Resul t Performing Organization Address City/[facility]/ZIP Co de Phone Number [facility] [address] [place] [address] * (ABNORMAL) CBC INCLUDES DIFFERENTIAL AND PLATELET COUNT (10/17/2021 11:19 AM EDT) WBC 7.8 3.8 - 10.8 Thousand/u L [facility] RBC 4.75 3.80 - 5.10 Million/uL [facility] Hemoglobin 14.1 11.7 - 15.5 g/dL [facility] Hematocrit 41.0 35.0 - 45.0 % [facility] MCV 86.3 80.0 - 100.0 fL [facility] MCH 29.7 27.0 - 33.0 pg [facility] MCHC 34.4 32.0 - 36.0 g/dL [facility] RDW 12.8 11.0 - 15.0 % [facility] PLT 436(H) 140 - 400 Thousand/u L [facility] MPV 11.2 7.5 - 12.5 fL [facility] Neutrophils # 4485 1500 - 7800 cells/uL [facility] Lymphocytes # 2551 850 - 3900 cells/uL [facility] Monocytes # 476 200 - 950 cells/uL [facility] Eosinophils # 226 15 - 500 cells/uL [facility] Basophils # 62 0 - 200 cells/uL [facility] Neutrophils % 57.5 % [facility] Lymphocytes % 32.7 % [facility] Monocytes % 6.1 % [facility] Eosinophils % 2.9 % [facility] Basophils % 0.8 % [facility] 10/17/2021 11:1 9 AM EDT 10/18/2021 12:27 AM EDT Narrative Resulting Agency Comment [id number] Jose Maldonado NP LAB SAME DAY RESULT Final R esult Performing Organization Address City/[facility]/ZIP Co de Phone Number [facility] [address] [place] [address] * (ABNORMAL) COMPREHENSIVE METABOLIC PANEL WITH GFR (10/17/2021 11:19 AM EDT) Glucose 121(H) 65 - 99 mg/dL [facility] Comment: ? Fasting reference interval For someone without known diabetes, a glucose value between 100 and 125 mg/dL is consistent with prediabetes and should be confirmed with a follow-up test. Urea Nitrogen Blood (BUN) 8 7 - 25 mg/dL [facility] Creatinine 0.72 0.50 - 1.10 mg/dL [facility] EGFR 105 > OR = 60 mL/min/1 .73m2 [facility] GFR () 121 > OR = 60 mL/min/1 .73m2 [facility] BUN/Creatinine Ratio NOT APPLICABLE 6 - 22 (calc) [facility] Sodium 138 135 - 146 mmol/L [facility] Potassium 4.2 3.5 - 5.3 mmol/L [facility] Chloride 100 98 - 110 mmol/L [facility] Carbon dioxide 28 20 - 32 mmol/L [facility] Calcium 10.2 8.6 - 10.2 mg/dL [facility] Protein Total (Serum) 7.4 6.1 - 8.1 g/dL [facility] Albumin 4.3 3.6 - 5.1 g/dL [facility] Globulin 3.1 1.9 - 3.7 g/dL (calc) [facility] Albumin/Globuli n 1.4 1.0 - 2.5 (calc) [facility] Bilirubin Total 0.4 0.2 - 1.2 mg/dL [facility] Alkaline phosphatase 77 31 - 125 U/L [facility] AST (SGOT) 21 10 - 30 U/L [facility] ALT (SGPT) 28 6 - 29 U/L [facility] 10/17/2021 11:1 9 AM EDT 10/18/2021 12:27 AM EDT Narrative [facility] - 10/18/2021 3:59 AM EDT Please note that this estimated [...] needs for GFR calculation. Resulting Agency Comment [id number] us Joes Maldonado NP LABORATORY Final Resul t [facility] [address] [place] [address] documented in this encounter Visit Diagnoses Diagnosis Generalized abdominal pain Abdominal pain, generalized documented in this encounter Additional Health Concerns Infection Onset Date Last Indicated Resolved Time COVID-19 Confirmed 08/13/2022 08/13/2022 documented as of this encounter Care Teams Collaborative Physician Relationship Specialty Start Date End Date Florencia Em MD [address] [place] [address] PCP - General Internal Medicine 05/27/21 documented as of this encounter
--- OUTSIDE RECORDS SUMMARY | 2024-09-13 19:59 | XMS_ITS | Encounter Summary ---
Author Organization [facility] Address [address] [place] [address] Care Team Providers Care Park Aide Name Role Phone Florencia Em MD Primary Care Provider [phone] Florencia Em MD Primary Care Provider [phone] Encounter Details Date Type Department Care Team (Late st Contact Info) Description 04/14/2016 Orders Only [facility] [address] [place] [address] Maribel Ross DNP [facility] Gallagher, [place], PC [address] [place] [address] Social History Tobacco Use Types Packs/Day Years [...] as of this encounter Progress Notes * Maribel Ross DNP - 04/20/2016 7:55 AM EDTQuick Note: Message sent in [place] documented in this encounter Plan of Treatment Upcoming Encounters Date Type Department Care Team (Late st Contact Info) Description 12/11/2024 10:00 AM EDT Office Visit [facility] [address] [place] [phone] Angeli Cuevas, SACHIN [address] [place] [address] Abdominal discomfort 06/26/2025 2:00 PM EST Radiology [facility]. Mammography [address] [place] [phone] documented as of this encounter Procedures * Due to [place] [employer] law, this organization might not be sharing negative HIV tests. Procedure Name Priority Date/Time Associated Diagnosis Comments [facility] PAP AND HR HPV DNA Routine 04/14/2016 2:46 PM EDT Screening for malignant neoplasm of cervix Atypical squamous cell changes of undetermined significance (ASCUS) on vaginal cytology documented in this encounter Results * Due to [place] [employer] law, this organization might not be sharing negative HIV tests. * [facility] PAP AND HR HPV DNA (04/14/2016 2:46 PM EDT) Clinical information HX ASCUS WITH NEG HPV 2014 [facility] Comment:{CLINICAL INFORMATIO N: {[id number]) Date last menstrual period [facility] Comment:{LMP: {[id number]) Date of previous PAP smear NONE GIVEN [facility] Comment:{PREV. PAP: {[id number]) Date of previous biopsy NONE GIVEN [facility] Comment:{PREV. BX: {[id number]) Specimen source (Cvx/Vag) Vagina, Cervix, Endocervix [facility] Comment:{SOURCE: {[id number]) Statement of Adequacy (Cvx/Vag) Satisfactory for evaluation. Endocervical/dotson sformation zone component present. [facility] Comment:{STATEMENT OF ADEQUA CY: {[id number]) Cytology, Pap Smear Negative for intraepithelial lesion or malignancy. [facility] Comment:{INTERPRETATION/RESU LT: {[id number]) Cytology study comment (Cvx/Vag) This Pap test has been evaluated with computer assisted technology. [facility] Comment:{COMMENT: {[id number]) Band Saw Operator (Cvx/Vag) [facility], CT(ASCP) CT screening location: [address] [address] [facility] Comment:{SHOE PACKER: { [id number]) Band Saw Operator (Cvx/Vag) [facility], CT(ASCP) CT screening location: [place] [address] [facility] Comment:{REVIEW CYTOTECHNOLO GIST: {[id number]) HPV MRNA E6/E7 Not Detected NOT DETECTED [facility] Comment: {HPV mRNA E6/E7, [facility] VIAL {[id number]) This test was performed using the APTIMA HPV Assay ([employer] This assay detects E6/E7 viral messenger RNA (mRNA) from 14 high-risk HPV types (16,18,31,33,35,39,45,51,52,56,58,59,66,68). The analytical performance characteristics of this assay, when used to test [facility] specimens, have been determined by [employer] 04/14/2016 2:46 PM EDT 04/15/2016 5:54 AM EDT Narrative [facility] - 04/19/2016 2:14 PM EDT Report Comments: HX OF ASCUS WITH NEGATIVE HPV IN 2014 Resulting Agency Comment [id number] us Maribel Ross DNP PATHOLOGY-INTERFACED Final R esult Performing Organization Address City/State/[facility] Co de Phone Number [facility] [address] [place] [address] documented in this encounter Visit Diagnoses Diagnosis Screening for malignant neoplasm of cervix Screening for malignant neoplasm of the cervix Atypical squamous cell changes of undetermined significance (ASCUS) on vaginal cytology documented in this encounter Additional Health Concerns Infection Onset Date Last Indicated Resolved Time COVID-19 Confirmed 04/26/2021 04/26/2021 2 8:12 PM EST COVID-19 Confirmed 08/13/2022 08/13/2022 documented as of this encounter Care Teams Park Aide Relationship Specialty Start Date End Date Florencia Em MD [address] [place] [address] PCP - General 03/04/07 05/11/21 Florencia Em MD [address] [place] [address] PCP - General Internal Medicine 05/27/21 documented as of this encounter
--- OUTSIDE RECORDS SUMMARY | 2024-09-13 19:59 | XMS_ITS | Encounter Summary ---
Author Organization [facility] Address [address] [place] [address] Care Team Providers Care [employer] Name Role Phone Florencia Em MD Primary Care Provider [phone] Florencia Em MD Primary Care Provider [phone] Encounter Details Date Type Department Care Team (Late st Contact Info) Description 04/13/2017 Orders Only [facility] [address] [place] [phone] Yasir Munoz MD [address] [place] [address] Social History Tobacco Use Types Packs/Day Years [...] Description 12/11/2024 10:00 AM EDT Office Visit [facility] [address] [place] [phone] Angeli Cuevas NP [address] [place] [address] Abdominal discomfort 06/26/2025 2:00 PM EST Radiology [facility] [address] [place] [address] documented as of this encounter Visit Diagnoses Diagnosis Hereditary nonpolyposis colon cancer Malignant neoplasm of colon, unspecified site documented in this encounter Additional Health Concerns Infection Onset Date Last Indicated Resolved Time COVID-19 Confirmed 04/26/2021 04/26/2021 2 8:12 PM EST COVID-19 Confirmed 08/13/2022 08/13/2022 documented as of this encounter Care Teams [employer] Relationship Specialty Start Date End Date Florencia Em MD [address] [place] [address] PCP - General 03/04/07 05/11/21 Florencia Em MD [address] [place] [address] PCP - General Internal Medicine 05/27/21 documented as of this encounter
--- OUTSIDE RECORDS SUMMARY | 2024-09-13 19:59 | XMS_ITS | Encounter Summary ---
Author Organization [facility] Address [address] [place] [address] Care Team Providers Care Sand Car Worker Name Role Phone Florencia Em MD Primary Care Provider [phone] Florencia Em MD Primary Care Provider [phone] Encounter Details Date Type Department Care Team (Late st Contact Info) Description 05/03/2020 Orders Only [facility] [address] [place] [address] Florencia Em MD [address] [place] [address] Social History Tobacco Use Types Packs/Day Years [...] Progress Notes * Florencia Em MD - 05/03/2020 3:40 PM EDT msg [email or web address]? heam documented in this encounter Plan of Treatment Upcoming Encounters Date Type Department Care Team (Late st Contact Info) Description 12/11/2024 10:00 AM EDT Office Visit [facility] [address] [place] [phone] Angeli Cuevas NP [address] [place] [address] Abdominal discomfort 06/26/2025 2:00 PM EST Radiology [facility] Mamm[facility] [address] [place] [address] documented as of this encounter Procedures * Due to [facility] law, this organization might not be sharing negative HIV tests. Procedure Name Priority Date/Time Associated Diagnosis Comments VENIPUNCTURE Routine 05/03/2020 3:40 PM EDT Screening for condition documented in this encounter Results * Due to [place] [employer] law, this organization might not be sharing [...] 12:41 AM EDT Narrative Resulting Agency Comment [id number] us Florencia Em MD LAB SAME DAY RESULT Final Result [facility] [address] [place] [address] documented in this encounter Visit Diagnoses Diagnosis Screening for condition Screening for unspecified condition documented in this encounter Additional Health Concerns Infection Onset Date Last Indicated Resolved Time COVID-19 Confirmed 04/26/2021 04/26/2021 2 8:12 PM EST COVID-19 Confirmed 08/13/2022 08/13/2022 documented as of this encounter Care Teams Sand Car Worker Relationship Specialty Start Date End Date Florencia Em MD [address] [place] [address] PCP - General 03/04/07 05/11/21 Florencia Em MD [address] [place] [address] PCP - General Internal Medicine 05/27/21 documented as of this encounter
--- OUTSIDE RECORDS SUMMARY | 2024-09-13 19:59 | XMS_ITS | Encounter Summary ---
Author Organization [facility] Address [address] [place] [address] Care Team Providers Care Intellectual Property Legal Assistant Name Role Phone Florencia Em MD Primary Care Provider [phone] Florencia Em MD Primary Care Provider [phone] Encounter Details Date Type Department Care Team (Late st Contact Info) Description 03/09/2011 Orders Only [facility] [address] [place] [address] Florencia Em MD [address] [place], [place] [id number] Social History Tobacco Use Types Packs/Day Years [...] Progress Notes * Florencia Em MD - 03/12/2011 6:29 PM EDTQuick Note: Letter sent * Florencia Em MD - 03/11/2011 9:36 PM EDTQuick Note: Letter sent documented in this encounter Plan of Treatment Upcoming Encounters Date Type Department Care Team (Late st Contact Info) Description 12/11/2024 10:00 AM EDT Office Visit [facility] [address] [place] [phone] Angeli Cuevas NP [address] [place] [address] Abdominal discomfort 06/26/2025 2:00 PM EST Radiology [facility]. Mammography [address] [place] [phone] documented as of this encounter Procedures * Due to [place] invi law, this organization might not be sharing negative HIV tests. Procedure Name Priority Date/Time Associated Diagnosis Comments CBC INCLUDES DIFFERENTIAL AND PLATELET COUNT Routine 03/09/2011 9:30 AM EDT Routine general medical examination at a [facility] facility THYROID STIMULATING HORMONE (TSH) WITH FREE T4 REFLEX, SERUM Routine 03/09/2011 9:30 AM EDT Routine general medical examination at a [facility] facility HEPATIC FUNCTION PANEL (ALT,AST,ALK PH,BILI'S,TP,ALB) Routine 03/09/2011 9:30 AM EDT Routine general medical examination at a [facility] facility LIPID PANEL WITH REFLEX TO DIRECT LDL Routine 03/09/2011 9:30 AM EDT Routine general medical examination at a [facility] facility BASIC METABOLIC PANEL WITH (GFR) Routine 03/09/2011 9:30 AM EDT Routine general medical examination at a health care facility LIQUID-BASED PAP WITH HPV REFLEX Routine 03/09/2011 9:00 AM EDT documented in this encounter Results * Due to [place] invi law, this organization might not be sharing negative HIV tests. * HEPATIC FUNCTION PANEL (03/09/2011 9:30 AM EDT) Protein Total (Serum) 7.7 6.2 - 8.3 g/dL [facility] Comment:{PROTEIN, TOTAL {[id number]) Albumin 4.3 3.6 - 5.1 g/dL [facility] Comment:{ALBUMIN {[id number]) Globulin 3.4 2.2 - 3.9 g/dL (calc) [facility] Comment:{GLOBULIN {[id number]) Albumin/Globulin 1.3 1.0 - 2.1 (calc) [facility] Comment:{ALBUMIN/GLOBULIN RA ROBBIE {[id number]) Bilirubin Total 0.3 0.2 - 1.2 mg/dL [facility] Comment:{BILIRUBIN, TOTAL {[id number]) Bilirubin Direct 0.1 < OR = 0.2 mg/dL [facility] Comment:{BILIRUBIN, DIRECT { [id number]) Bilirubin Indirect 0.2 0.2 - 1.2 mg/dL (calc) [facility] Comment:{BILIRUBIN, INDIRECT {[id number]) Alkaline phosphatase 77 33 - 115 U/L [facility] Comment:{ALKALINE PHOSPHATAS E {[id number]) AST (SGOT) 26 10 - 30 U/L [facility] Comment:{AST {[id number]) ALT (SGPT) 31 6 - 40 U/L [facility] Comment:{ALT {[id number]) 03/09/2011 9:30 AM EDT 03/09/2011 5:30 PM EDT Narrative Resulting Agency Comment [id number] Florencia Em MD LABORATORY Final Result Performing Organization Address City/State/[facility] Co de Phone Number [facility] [address] [place] [address] * THYROID STIMULATING HORMONE (TSH) WITH FREE T4 REFLEX, SERUM (03/09/2011 9:30 AM EDT) TSH 3.04 mIU/L [facility] Comment: {TSH, 3RD GENERATION W/REFLEX TO FT4 {[id number]) Reference Range > or = 20 Years ??0.40-4.50 ? Ranges First trimester ?0.20-4.70 Second trimester ?? 0.30-4.10 Third trimester ?0.40-2.70 03/09/2011 9:30 AM EDT 03/09/2011 5:30 PM EDT Narrative Resulting Agency Comment [id number] Florencia Em MD LABORATORY Final Result [facility] [address] [place] [address] * CBC INCLUDES DIFFERENTIAL AND PLATELET COUNT (03/09/2011 9:30 AM EDT) WBC 7.6 3.8 - 10.8 Thousand/u L [facility] Comment:{WHITE BLOOD CELL CO UNT {[id number]) RBC 4.10 3.80 - 5.10 Million/uL [facility] Comment:{RED BLOOD CELL COUN T {[id number]) Hemoglobin 12.5 11.7 - 15.5 g/dL [facility] Comment:{HEMOGLOBIN {[id number]) Hematocrit 36.8 35.0 - 45.0 % [facility] Comment:{HEMATOCRIT {[id number]) MCV 89.7 80.0 - 100.0 fL [facility] Comment:{MCV {[id number]) MCH 30.4 27.0 - 33.0 pg [facility] Comment:{MCH {[id number]) MCHC 33.9 32.0 - 36.0 g/dL [facility] Comment:{MCHC {[id number]) RDW 12.5 11.0 - 15.0 % [facility] Comment:{RDW {[id number]) PLT 322 140 - 400 Thousand/u L [facility] Comment:{PLATELET COUNT {[id number]) MPV 8.6 7.5 - 11.5 fL [facility] Comment:{MPV {[id number]) Neutrophils # 4150 1500 - 7800 cells/uL [facility] Comment:{ABSOLUTE NEUTROPHIL S {[id number]) Lymphocytes # 2668 850 - 3900 cells/uL [facility] Comment:{ABSOLUTE LYMPHOCYTE S {[id number]) Monocytes # 456 200 - 950 cells/uL [facility] Comment:{ABSOLUTE MONOCYTES {[id number]) Eosinophils # 266 15 - 500 cells/uL [facility] Comment:{ABSOLUTE EOSINOPHIL S {[id number]) Basophils # 61 0 - 200 cells/uL [facility] Comment:{ABSOLUTE BASOPHILS {[id number]) Neutrophils % 54.6 % [facility] Comment:{NEUTROPHILS {[id number]) Lymphocytes % 35.1 % [facility] Comment:{LYMPHOCYTES {[id number]) Monocytes % 6.0 % [facility] Comment:{MONOCYTES {[id number]) Eosinophils % 3.5 % [facility] Comment:{EOSINOPHILS {[id number]) Basophils % 0.8 % [facility] Comment:{BASOPHILS {[id number]) 03/09/2011 9:30 AM EDT 03/09/2011 5:30 PM EDT Narrative Resulting Agency Comment [id number] Florencia Em MD LAB SAME DAY RESULT Final Result [facility] [address] [place] [address] * BASIC METABOLIC PANEL WITH (GFR) (03/09/2011 9:30 AM EDT) Glucose 89 65 - 99 mg/dL [facility] Comment: {GLUCOSE {[id number]) ? Fasting reference interval Urea Nitrogen Blood (BUN) 9 7 - 25 mg/dL [facility] Comment:{UREA NITROGEN (BUN) {[id number]) Creatinine 0.65 0.57 - 1.03 mg/dL [facility] Comment:{CREATININE {[id number]) GFR 120 > OR = 60 mL/min/1. 73m2 [facility] Comment:{eGFR NON-AFR. AMERI CAN {[id number]) GFR () 139 > OR = 60 mL/min/1. 73m2 [facility] Comment:{eGFR AMERIC AN {[id number]) BUN/Creatinine Ratio NOT APPLICABLE (calc) [facility] Comment:{BUN/CREATININE RATI O {[id number]) Sodium 136 135 - 146 mmol/L [facility] Comment:{SODIUM {[id number]) Potassium 4.5 3.5 - 5.3 mmol/L [facility] Comment:{POTASSIUM {[id number]) Chloride 100 98 - 110 mmol/L [facility] Comment:{CHLORIDE {[id number]) Carbon dioxide 25 21 - 33 mmol/L [facility] Comment:{CARBON DIOXIDE {[id number]) Calcium 9.9 8.6 - 10.2 mg/dL [facility] Comment:{CALCIUM {[id number]) 03/09/2011 9:30 AM EDT 03/09/2011 5:30 [...] needs for GFR calculation. Resulting Agency Comment [id number] Florencia Em MD LABORATORY Final Result [facility] [address] [place] [address] * (ABNORMAL) LIPID PANEL WITH REFLEX TO DIRECT LDL (03/09/2011 9:30 AM EDT) Cholesterol 158 125 - 200 mg/dL [facility] Comment:{CHOLESTEROL, TOTAL {[id number]) HDL Cholesterol 42(L) > OR = 46 mg/dL [facility] Comment:{HDL CHOLESTEROL {[id number]) Triglyceride 84 <150 mg/dL [facility] Comment:{TRIGLYCERIDES {[id number]) LDL Cholesterol 99 <130 mg/dL (calc) [facility] Comment: {LDL-CHOLESTEROL {[id number]) Desirable range <100 mg/dL for patients with CHD or diabetes and <70 mg/dL for diabetic patients with known heart disease. CHOL/HDL Ratio 3.8 < OR = 5.0 (calc) [facility] Comment:{CHOL/HDLC RATIO {[id number]) 03/09/2011 9:30 AM EDT 03/09/2011 5:30 PM EDT Narrative Resulting Agency Comment [id number] Florencia Em MD LABORATORY Final Result [facility] [address] [place] [address] * LIQUID-BASED PAP WITH HPV REFLEX (03/09/2011 9:00 AM EDT) Service comment 01 FINAL [facility] Comment:{REPORT STATUS: {[id number]) Clinical information none given [facility] Comment:{CLINICAL INFORMATIO N: {[id number]) LMP [id number] [facility] Comment:{LMP: {[id number]) Date of previous PAP smear [id number] [facility] Comment:{PREV. PAP: {[id number]) Date of previous biopsy NONE GIVEN [facility] Comment:{PREV. BX: {[id number]) Specimen source (Cvx/Vag) Vagina, Cervix, Endocervix [facility] Comment:{SOURCE: {[id number]) Statement of Adequacy (Cvx/Vag) Satisfactory for evaluation. Endocervical/trans formation zone component present. [facility] Comment:{STATEMENT OF ADEQUA CY: {[id number]) Microscopic observation (Cvx) Negative for intraepithelial lesion or malignancy. [facility] Comment:{INTERPRETATION/RESU LT: {[id number]) Cytology study comment (Cvx/Vag) This Pap test has been evaluated with computer assisted technology. Based on the cytology result, reflex High Risk HPV DNA testing was not performed. [facility] Comment:{COMMENT: {[id number]) Geospatial Image Analyst (Cvx/Vag) CXP, CT(ASCP) [facility] Comment:{CAREER SPECIALIST: { [id number]) 03/09/2011 9:00 AM EDT 03/10/2011 2:08 AM EDT Florencia Em MD PATHOLOGY-INTERFACED Final Resul t [facility] [address] [place] [address] documented in this encounter Visit Diagnoses Diagnosis Routine general medical examination at a health care facility documented in this encounter Additional Health Concerns Infection Onset Date Last Indicated Resolved Time COVID-19 Confirmed 04/26/2021 04/26/2021 8:12 PM EST COVID-19 Confirmed 08/13/2022 08/13/2022 documented as of this encounter Care Teams Intellectual Property Legal Assistant Relationship Specialty Start Date End Date Florencia Em MD [address] [place] [address] PCP - General 03/04/07 05/11/21 Florencia Em MD [address] [place] [address] PCP - General Internal Medicine 05/27/21 documented as of this encounter
--- OUTSIDE RECORDS SUMMARY | 2024-09-13 20:00 | XMS_ITS | Encounter Summary ---
Author Organization [facility] Address [address] [place] [address] Care Team Providers Care Surgery Aide Name Role Phone Florencia Em MD Primary Care Provider [phone] Florencia Em MD Primary Care Provider [phone] Encounter Details Date Type Department Care Team (Late st Contact Info) Description 06/06/2007 Orders Only [facility] [address] [place] [address] Florencia Em MD [address], [place] [phone] Social History Tobacco Use Types Packs/Day Years [...] AM EDT Office Visit [facility] [address] [place] [phone] Angeli Cuevas NP [address] [place] [address] Abdominal discomfort 06/26/2025 2:00 PM EST Radiology [facility]. Mammography [address] [place] [address] Pending Results Name Type Priority Associated Diagnoses Date /Time EKG (ELECTROCARDIOGRA M) cardiovascular Routine ANXIETY STATE, NEUROTIC DEPRESSION 06/06/2007 11:53 AM EST documented as of this encounter Procedures * Due to [place] law, this organization might not be sharing negative HIV tests. Procedure Name Priority Date/Time Associated Diagnosis Comments EKG-TO BE READ & BILLED BY ADULT OR PEDIATRIC CARDIOLOGY Routine 06/06/2007 11:53 AM EST ANXIETY STATE, NEUROTIC DEPRESSION BASIC METABOLIC PANEL Routine 06/06/2007 ANXIETY STATE, NEUROTIC DEPRESSION CBC 5 PART DIFF Routine 06/06/2007 ANXIETY STATE, NEUROTIC DEPRESSION HEPATIC FUNCTION PANEL Routine 06/06/2007 ANXIETY STATE, NEUROTIC DEPRESSION documented in this encounter Results * Due to [place] law, this organization might not be sharing negative HIV tests. * BASIC METABOLIC PANEL (06/06/2007) CALCIUM 10.1 8.6 - 10.2 MG/DL [facility] (CLIA# [id number]) BUN 8 7 - 25 MG/DL [facility] (CLIA# [id number]) CREATININE 0.75 0.5 - 1.2 MG/DL [facility] (CLIA# [id number]) BUN/Creatinine Ratio 11 6 - 25 [facility] (CLIA# [id number]) Glucose 90 65 - 99 MG/DL [facility] (CLIA# [id number]) SODIUM 138 135 - 146 MMOL/L [facility] (CLIA# [id number]) POTASSIUM 4.6 3.5 - 5.3 MMOL/L [facility] (CLIA# [id number]) CHLORIDE 100 98 - 110 MMOL/L [facility] (CLIA# [id number]) CARBON DIOXIDE 26 21 - 33 MMOL/L [facility] (CLIA# [id number]) 06/06/2007 06/06/2007 8:4 2 PM EST us Florencia Em MD LAB SAME DAY RESULT Final Result [facility] (CLIA# [id number]) [address] [place] [address] * CBC 5 PART DIFF (06/06/2007) WHITE BLOOD COUNT 7.4 3.8 - 10.8 THOUS/UL [facility] (CLIA# [id number]) RBC 4.51 3.80 - 5.10 MIL/UL [facility] (CLIA# [id number]) Hemoglobin 13.7 11.7 - 15.5 G/DL [facility] (CLIA# [id number]) HCT (HEMATOCRIT) 40.5 35.0 - 45.0 % [facility] (CLIA# [id number]) MCV 89.9 80.0 - 100.0 FL [facility] (CLIA# [id number]) MCH 30.5 27.0 - 33.0 PG [facility] (CLIA# [id number]) MCHC 33.9 32.0 - 36.0 G/DL [facility] (CLIA# [id number]) BAND % 0 0 - 5 % [facility] (CLIA# [id number]) NEUTROPHIL % 61 48 - 75 % [facility] (CLIA# [id number]) LYMPHOCYTE % 27 17 - 40 % [facility] (CLIA# [id number]) MONOCYTE % 8 0 - 14 % [facility] (CLIA# [id number]) EOSINOPHIL % 3 0 - 5 % [facility] (CLIA# [id number]) BASOPHIL % 1 0 - 3 % [facility] (CLIA# [id number]) ATYPICAL LYMPHOCYTE % 0 0 - 5 % [facility] (CLIA# [id number]) PLATELETS 392 140 - 400 THOUS/UL [facility] (CLIA# [id number]) BANDS # 0 0 - 750 CELLS/MCL [facility] (CLIA# [id number]) NEUTROPHILS # 4514 1500 - 7800 CELLS/MCL [facility] (CLIA# [id number]) LYMPHOCYTES # 1998 850 - 3900 CELLS/MCL [facility] (CLIA# [id number]) MONOCYTES # 592 200 - 950 CELLS/MCL [facility] (CLIA# [id number]) EOSINOPHILS # 222 15 - 550 CELLS/MCL [facility] (CLIA# [id number]) BASOPHILS # 74 0 - 200 CELLS/MCL [facility] (CLIA# [id number]) ATYPICAL LYMPHOCYTES # 0 0 - 200 /UL [facility] (CLIA# [id number]) RDW 12.6 11.0 - 15.0 % [facility] (CLIA# [id number]) MPV 8.8 7.5 - 11.5 FL [facility] (CLIA# [id number]) 06/06/2007 06/06/2007 8:4 2 PM EST Florencia Em MD LAB SAME DAY RESULT [facility] ([facility]# [id number][facility] [address] [place] [address] * (ABNORMAL) HEPATIC FUNCTION PANEL (06/06/2007) Total Protein 8.5(H) 6.2 - 8.3 G/DL [facility] (CLIA# [id number]) ALBUMIN 4.8 3.7 - 5.1 G/DL [facility] (CLIA# [id number]) GLOBULIN 3.7 2.2 - 3.9 G/DL [facility] (CLIA# [id number]) ALBUMIN/GLOBULIN RATIO 1.3 1.0 - 2.1 [facility] ([facility] [id number]) BILIRUBIN TOTAL 0.5 0.2 - 1.2 MG/DL [facility] (CLIA# [id number]) BILIRUBIN DIRECT 0.1 0 - 0.2 MG/DL [facility] (CLIA# [id number]) ALKALINE PHOSPHATASE 80 33 - 115 U/L [facility] (CLIA# [id number]) AST (SGOT) 19 10 - 30 U/L [facility] (CLIA# [id number]) ALT (SGPT) 19 6 - 40 U/L [facility] (CLIA# [id number]) 06/06/2007 06/06/2007 8:4 2 PM EST Florencia Em MD LABORATORY Final Result [facility] (CLIA# [id number]) [address] [place] [address] documented in this encounter Visit Diagnoses Diagnosis ANXIETY STATE, NEUROTIC Anxiety state, unspecified DEPRESSION Depressive disorder, not elsewhere classified documented in this encounter Additional Health Concerns Infection Onset Date Last Indicated Resolved Time COVID-19 Confirmed 04/26/2021 04/26/2021 8:12 PM EST COVID-19 Confirmed 08/13/2022 08/13/2022 documented as of this encounter Care Teams Surgery Aide Relationship Specialty Start Date End Date Florencia Em MD [address] [place] [address] PCP - General 03/04/07 05/11/21 Florencia Em MD [address] [place] [address] PCP - General Internal Medicine 05/27/21 documented as of this encounter
--- OUTSIDE RECORDS SUMMARY | 2024-09-13 20:00 | XMS_ITS | Encounter Summary ---
Author Organization [facility] Address [address] [place] [address] Care Team Providers Care Bridges Supervisor Name Role Phone Florencia Em MD Primary Care Provider [phone] Florencia Em MD Primary Care Provider [phone] Reason for Visit * Reason Comments E-prescribing Refill Request Encounter Details Date Type Department Care Team (Late st Contact Info) Description 12/30/2020 Refill [facility] [address] [place] [address] Florencia Em MD [address] [place] [address] E-prescribing Refill Request Social History Tobacco Use Types Packs/Day Years [...] encounter Miscellaneous Notes * Telephone Encounter - Maribel Cummings - 01/03/2021 9:53 AM EDT Patient states she forgot to call to setup appt with psych Only has 1 tab left Pt states she will call to set up an appt Requested number for dept, provided number for her to call Pt will call right now Please advise * Telephone Encounter - Florencia Em MD - 12/30/2020 12:18 PM EDT Please advise patient she was supposed to see psychiatrist for these prescriptions And for follow-up on her medical conditions. She did not keep her appointment. I prefer that she see psychiatry for the prescription. Does not look like she is not the prescription filled in a few months * Telephone Encounter - Maribel Cummings - 12/30/2020 9:56 AM EDT Images from the original note were not included. Any special requests or concerns? Checked PUBLIC RECORDS OFFICER Faxed/E-prescribed medication renewal request(s) for Heather Wright 40 y.o. female received from pharmacy. Verified and Confirmed pharmacy for patient. Last CPE with this specialty: 07/31/2019 Last OV with this specialty: 07/31/2019 Next OV: No future appointments. Pertinent lab results: No labs suggested for any medication orders signed or pended in this encounter. Refresh if any orders changed. Allergies: Patient has no known allergies. BP Readings from Last 1 Encounters: 09/17/20 113/64 Patient Active Problem List Diagnosis Date Noted ??? Thrombocytosis (HCC) 09/18/2020 ??? BMI 40.0-44.9, adult (HCC) 11/09/2017 ??? Mood disorder (HCC) 11/09/2017 ??? Mood disorder (HCC) 11/09/2017 ??? Polycystic ovary disease 11/09/2017 ??? H/O abnormal cervical Papanicolaou smear 04/14/2016 04/20/16 previous pap smear +ASCU, -HPV, current pap smear -cytology and -HPV. Return to routine screening ??? Obesity 02/04/2015 ??? FH: colon cancer 02/04/2015 04/14/16 sister dx late 20's Colon 03/2017 recommend 2yr f/u Colon 04/2019 recommend 2yr f/u ??? MIXED ANXIETY AND DEPRESSIVE DISORDER 03/11/2007 She will continue current medications and we will have her see psychiatrist regarding her concerns. Current Outpatient Medications on File Prior to Visit Medication Sig Dispense Refill ??? traZODone HCl (DESYREL) 50 MG tablet Take one tablet (50 mg total) by mouth at night if needed for sleep 90 tablet 2 ??? buPROPion HCl ER, SR, (WELLBUTRIN SR) 150 MG 12 hr tablet Take one tablet (150 mg total) by mouth 1 (one) time each day 30 tablet 11 ??? clonazePAM (KlonoPIN) 0.5 MG tablet TAKE 1 TABLET(0.5 MG) BY MOUTH TWICE DAILY 60 tablet 0 ??? PARoxetine HCl (PAXIL) 20 MG tablet Take one tablet (20 mg total) by mouth 1 (one) time each day 90 tablet 1 ??? Multiple Vitamins Tab 1 TABLET DAILY documented in this encounter Plan of Treatment Upcoming Encounters Date Type Department Care Team (Late st Contact Info) Description 12/11/2024 10:00 AM EDT Office Visit [facility] [address] [place] [address] Angeli Cuevas NP [address] [place] [address] Abdominal discomfort 06/26/2025 2:00 PM EST Radiology [facility]. Mammography [address] [place] [address] documented as of this encounter Visit Diagnoses Not on filedocumented in this encounter Additional Health Concerns Infection Onset Date Last Indicated Resolved Time COVID-19 Confirmed 04/26/2021 04/26/2021 8:12 PM EST COVID-19 Confirmed 08/13/2022 08/13/2022 documented as of this encounter Care Teams Bridges Supervisor Relationship Specialty Start Date End Date Florencia Em MD [address] [place] [address] [place] [address] PCP - General 03/04/07 05/11/21 Florencia Em MD [address] [place] [address] PCP - General Internal Medicine 05/27/21 documented as of this encounter
--- OUTSIDE RECORDS SUMMARY | 2024-09-13 20:00 | XMS_ITS | Encounter Summary ---
Author Organization [facility] Address [address] [place] [address] Care Team Providers Care Certified Master Locksmith Name Role Phone Florencia Em MD Primary Care Provider [phone] Florencia Em MD Primary Care Provider [phone] Encounter Details Date Type Department Care Team (Late st Contact Info) Description 03/13/2021 Orders Only [facility] [address] [place] [address] Florencia Em MD [address] [place], [place] [phone] Social History Tobacco Use Types Packs/Day Years [...] AM EDT Office Visit [facility] [address] [place] [phone] Angeli Cuevas, SACHIN [address] [place] [address] Abdominal discomfort 06/26/2025 2:00 PM EST Radiology [facility] [address] [place] [address] documented as of this encounter Visit Diagnoses Not on filedocumented in this encounter Additional Health Concerns Infection Onset Date Last Indicated Resolved Time COVID-19 Confirmed 04/26/2021 04/26/2021 8:12 PM EST COVID-19 Confirmed 08/13/2022 08/13/2022 documented as of this encounter Care Teams Certified Master Locksmith Relationship Specialty Start Date End Date Florencia Em MD [address] [place] [address] PCP - General 03/04/07 05/11/21 Florencia Em MD [address] [place] [address] PCP - General Internal Medicine 05/27/21 documented as of this encounter
--- OUTSIDE RECORDS SUMMARY | 2024-09-13 20:00 | XMS_ITS | Encounter Summary ---
Author Organization [facility] Address [address] [place] [address] Care Team Providers Care Swine Genetics Researcher Name Role Phone Florencia Em MD Primary Care Provider [phone] Reason for Visit * Reason Comments Care Coordination Communication Encounter Details Date Type Department Care Team (Late st Contact Info) Description 08/13/2023 Telephone [facility] [address] [place] [address] Alysia Lu, [facility] Care Coordination Communication Social History Tobacco Use Types Packs/Day Years [...] encounter Miscellaneous Notes * Telephone Encounter - Alysia Lu - 08/13/2023 10:12 AM EST Attempted to contact patient/family for screening following recent Hospital/SNF Discharge. Patient's LACE score is N/A. Recommended appointment time frame was not applicable. This is the first attempt to reach patient/family. Transition Coordinator was unable to contact patient/family to complete screening. Message was leftfor return call. Summary: Left message for patient. I will follow up next business day. Thank you Alysia documented in this encounter Plan of Treatment Upcoming Encounters Date Type Department Care Team (Late st Contact Info) Description 12/11/2024 10:00 AM EDT Office Visit [facility] [address] [place] [address] Angeli Cuevas NP [address] [place] [address] Abdominal discomfort 06/26/2025 2:00 PM EST Radiology [facility] [address] [place] [address] documented as of this encounter Visit Diagnoses Not on filedocumented in this encounter Additional Health Concerns Infection Onset Date Last Indicated Resolved Time COVID-19 Confirmed 08/13/2022 08/13/2022 documented as of this encounter Care Teams Swine Genetics Researcher Relationship Specialty Start Date End Date Florencia Em MD [address] [place] [address] PCP - General Internal Medicine 05/27/21 documented as of this encounter
--- OUTSIDE RECORDS SUMMARY | 2024-09-13 20:00 | XMS_ITS | Encounter Summary ---
Author Organization [facility] Address [address] [place] [address] Care Team Providers Care Dubbing Machine Operator Name Role Phone Florencia Em MD Primary Care Provider [phone] Florencia Em MD Primary Care Provider [phone] Encounter Details Date Type Department Care Team (Late st Contact Info) Description 08/23/2009 Orders Only [facility] [address] [place] [phone] Florencia Em MD [address] [place], [place] [phone] Social History Tobacco Use Types Packs/Day Years [...] Progress Notes * Florencia Em MD - 08/26/2009 7:44 PM ESTQuick Note: Results discussed with patient, diet and exercise recommended, repeat a fasting blood sugar and cholesterol in 6 months. * Florencia Em MD - 08/25/2009 9:25 PM ESTQuick Note: 08-26 documented in this encounter Plan of Treatment Upcoming Encounters Date Type Department Care Team (Late st Contact Info) Description 12/11/2024 10:00 AM EDT Office Visit [facility] [address] [place] [phone] Angeli Cuevas NP [address] [place] [address] Abdominal discomfort 06/26/2025 2:00 PM EST Radiology [facility] [address] [place] [phone] documented as of this encounter Procedures * Due to [place] [employer] law, this organization might not be sharing negative HIV tests. Procedure Name Priority Date/Time Associated Diagnosis Comments BASIC METABOLIC PANEL W/GLOMERULAR FILTRATION RATE (EGFR) Routine 08/23/2009 Other and unspecified hyperlipidemia Hypertension LIPID PANEL + CARDIAC RISK WITH REFLEX TO LDL DIRECT Routine 08/23/2009 Other and unspecified hyperlipidemia Hypertension CBC 5 PART DIFF Routine 08/23/2009 Other and unspecified hyperlipidemia Hypertension TSH, THYROTROPIN Routine 08/23/2009 Other and unspecified hyperlipidemia Hypertension documented in this encounter Results * Due to [place] [employer] law, this organization might not be sharing negative HIV tests. * (ABNORMAL) LIPID PANEL + CARDIAC RISK [...] MD LABORATORY Final Result Performing Organization Address [facility] de Phone Number [facility] [address] [phone] * (ABNORMAL) BASIC METABOLIC PANEL W/GLOMERULAR FILTRATION RATE (EGFR) (08/23/2009) Pathologist [facility] CALCIUM 9.9 8.6 - 10.2 MG/DL [facility] [...] LABORATORY Final Result Performing Organization Address [facility] de Phone Number [facility] [address] [place] [address] * CBC 5 PART DIFF (08/23/2009) WHITE [...] DAY RESULT Final Result Performing Organization Address City/[facility] Co de Phone Number [facility] [address] [place] [address] * TSH (THYROTROPIN) (08/23/2009) TSH, THYROTROPIN 3.132 0.40 - 4.50 UIU/ML [facility] 08/23/2009 08/23/2009 7:0 7 PM EST Florencia Em MD LABORATORY Final Result Performing Organization Address City/[facility] Co de Phone Number [facility] [address] [place] [address] documented in this encounter Visit Diagnoses Diagnosis Other and unspecified hyperlipidemia Hypertension Unspecified essential hypertension documented in this encounter Additional Health Concerns Infection Onset Date Last Indicated Resolved Time COVID-19 Confirmed 04/26/2021 04/26/2021 8:12 PM EST COVID-19 Confirmed 08/13/2022 08/13/2022 documented as of this encounter Care Teams Dubbing Machine Operator Relationship Specialty Start Date End Date Florencia Em MD [address] [place] [address] PCP - General 03/04/07 05/11/21 Florencia Em MD [address] [place] [address] PCP - General Internal Medicine 05/27/21 documented as of this encounter
--- OUTSIDE RECORDS SUMMARY | 2024-09-13 20:00 | XMS_ITS | Encounter Summary ---
Author Organization [facility] Address [address] [place] [address] Care Team Providers Care Skilled Nursing Facilities Professional Name Role Phone Florencia Em MD Primary Care Provider [phone] Florencia Em MD Primary Care Provider [phone] Encounter Details Date Type Department Care Team (Late st Contact Info) Description 06/05/2008 Orders Only [facility] [address] [place] [address] Florencia Em MD [address] [place], [place] [phone] Social History Tobacco Use Types Packs/Day Years [...] AM EDT Office Visit [facility] [address] [place] [phone] Angeli Cuevas NP [address] [place] [address] Abdominal discomfort 06/26/2025 2:00 PM EST Radiology [facility]. Mammography [address] [place] [phone] documented as of this encounter Procedures * Due to [place] [employer] law, this organization might not be sharing negative HIV tests. Procedure Name Priority Date/Time Associated Diagnosis Comments FUNGAL CULTURE Routine 06/05/2008 Glossitis BASIC METABOLIC PANEL Routine 06/05/2008 Generalized Anxiety Disorder Glossitis CBC 5 PART DIFF Routine 06/05/2008 Generalized Anxiety Disorder Glossitis TSH, THYROTROPIN Routine 06/05/2008 Generalized Anxiety Disorder Glossitis HEPATIC FUNCTION PANEL Routine 06/05/2008 Glossitis Generalized Anxiety Disorder documented in this encounter Results * Due to [place] [employer] law, this organization might not be sharing negative HIV tests. * FUNGAL CULTURE (06/05/2008) Result(s) SEE TEXT Comment: SOURCE: UNKNOWN NEGATIVE 06/05/2008 06/05/2008 11: 30 PM EST Florencia Em MD LABORATORY Final Result * (ABNORMAL) HEPATIC FUNCTION PANEL (06/05/2008) Total Protein 8.8(H) 6.2 - 8.3 G/DL ALBUMIN 5.1 3.7 - 5.1 G/DL GLOBULIN 3.7 2.2 - 3.9 G/DL ALBUMIN/GLOBULIN RATIO 1.4 1.0 - 2.1 BILIRUBIN TOTAL 0.5 0.2 - 1.2 MG/DL BILIRUBIN DIRECT 0.1 0 - 0.2 MG/DL ALKALINE PHOSPHATASE 82 33 - 115 U/L AST (SGOT) 21 10 - 30 U/L ALT (SGPT) 23 6 - 40 U/L 06/05/2008 06/05/2008 8:2 1 PM EST Florencia Em MD LABORATORY Final Result * TSH (THYROTROPIN) (06/05/2008) TSH, THYROTROPIN 1.29 0.40 - 4.50 UIU/ML 06/05/2008 06/05/2008 8:2 1 PM EST Florencia Em MD LABORATORY Final Result * (ABNORMAL) BASIC METABOLIC PANEL (06/05/2008) Pathologist [facility] CALCIUM 10.6(H) 8.6 - 10.2 MG/DL BUN 7 7 - 25 MG/DL CREATININE 0.80 0.50 - 1.20 MG/DL Glucose 94 65 - 99 MG/DL SODIUM 139 135 - 146 MMOL/L POTASSIUM 4.2 3.5 - 5.3 MMOL/L CHLORIDE 100 98 - 110 MMOL/L CARBON DIOXIDE 26 21 - 33 MMOL/L 06/05/2008 06/05/2008 8:2 1 PM EST Florencia Em MD LAB SAME DAY RESULT Final Result * (ABNORMAL) CBC 5 PART DIFF (06/05/2008) Pathologist [facility] WHITE BLOOD COUNT 9.7 3.8 - 10.8 THOUS/UL RBC 4.74 3.80 - 5.10 MIL/UL Hemoglobin 14.1 11.7 - 15.5 G/DL HCT (HEMATOCRIT) 41.7 35.0 - 45.0 % MCV 88.0 80.0 - 100.0 FL MCH 29.8 27.0 - 33.0 PG MCHC 33.9 32.0 - 36.0 G/DL BAND % 0 0 - 5 % NEUTROPHIL % 70 48 - 75 % LYMPHOCYTE % 23 17 - 40 % MONOCYTE % 6 0 - 14 % EOSINOPHIL % 1 0 - 5 % BASOPHIL % 0 0 - 3 % ATYPICAL LYMPHOCYTE % 0 0 - 5 % PLATELETS 425(H) 140 - 400 THOUS/UL BANDS # 0 0 - 750 CELLS/MCL NEUTROPHILS # 6790 1500 - 7800 CELLS/MCL LYMPHOCYTES # 2231 850 - 3900 CELLS/MCL MONOCYTES # 582 200 - 950 CELLS/MCL EOSINOPHILS # 97 15 - 550 CELLS/MCL BASOPHILS # 0 0 - 200 CELLS/MCL ATYPICAL LYMPHOCYTES # 0 0 - 200 CELLS/MCL RDW 12.8 11.0 - 15.0 % MPV 8.3 7.5 - 11.5 FL 06/05/2008 06/05/2008 8:2 1 PM EST Florencia Em MD LAB SAME DAY RESULT Final Result documented in this encounter Visit Diagnoses Diagnosis Generalized anxiety disorder Glossitis documented in this encounter Additional Health Concerns Infection Onset Date Last Indicated Resolved Time COVID-19 Confirmed 04/26/2021 04/26/2021 8:12 PM EST COVID-19 Confirmed 08/13/2022 08/13/2022 documented as of this encounter Care Teams Skilled Nursing Facilities Professional Relationship Specialty Start Date End Date Florencia Em MD [address] [place] [address] PCP - General 03/04/07 05/11/21 Florencia Em MD [address] [place] [address] PCP - General Internal Medicine 05/27/21 documented as of this encounter
--- OUTSIDE RECORDS SUMMARY | 2024-09-13 20:00 | XMS_ITS | Encounter Summary ---
Author Organization [facility] Address [address] [place] [address] Care Team Providers Care Magazine Editor Name Role Phone Florencia Em MD Primary Care Provider [phone] Florencia Em MD Primary Care Provider [phone] Encounter Details Date Type Department Care Team (Late st Contact Info) Description 07/24/2009 Orders Only [facility] [address] [place] [address] Florencia mE MD [address] [place], [place] [phone] Social History Tobacco Use Types Packs/Day Years [...] AM EDT Office Visit [facility] [address] [place] [phone] Angeli Cuevas NP [address] [place] [address] Abdominal discomfort 06/26/2025 2:00 PM EST Radiology [facility]. Mammography [address] [place] [phone] documented as of this encounter Visit Diagnoses Not on filedocumented in this encounter Additional Health Concerns Infection Onset Date Last Indicated Resolved Time COVID-19 Confirmed 04/26/2021 04/26/2021 8:12 PM EST COVID-19 Confirmed 08/13/2022 08/13/2022 documented as of this encounter Care Teams Magazine Editor Relationship Specialty Start Date End Date Florencia Em MD [address] [place] [address] PCP - General 03/04/07 05/11/21 Florencia Em MD [address] [place] [address] PCP - General Internal Medicine 05/27/21 documented as of this encounter
[2024-09-13 20:20] VITALS: BP 133/79; PULSE 90; RESP 16; TEMP 36.6; O2SAT 100
--- NOTE | 2024-09-13 20:21 | PC.NURSE ---
Patient discharged alert and oriented and ambulatory with EMS. Patient calm and cooperative.
[2024-09-13 20:22] VITALS: BP 133/79; PULSE 90; RESP 16; TEMP 36.6; O2SAT 100
== END 2024-09-13 20:35 ==
PROVIDERS: Emergency Provider Internal Medicine
DX: R45.851 Suicidal ideations (principal); K59.00 Constipation, unspecified; F32.A Depression, unspecified
CPT/HCPCS: 74018; 80307; 81001; 81025; 87086; 87147; 99285

== ENCOUNTER → 2024-09-13 16:43 | Outpatient (BNV) | payer OTHER, SELFPAY | PROVIDERS: Emergency Provider Internal Medicine; Visit Provider Radiology Diagnostic Radiology | DX: K59.00 Constipation, unspecified (principal) | CPT/HCPCS: 74018 ==